=== PATIENT | female | born 1955 | race Caucasian/White ===

== ENCOUNTER 2017-12-10 10:50 | Inpatient (IN) | payer OTHER ==
--- NOTE | 2017-12-10 11:08 | PDOC ---
History of Present Illness - General Chief Complaint: Wound Stated Complaint: RT ANKLE REDNESS/POSSIBLE CELLULITIS Time Seen by Provider: 12/10/17 11:07 History Source: Patient Exam Limitations: No Limitations - History of Present Illness Initial Comments: 12/10/17 12:06 CHIEF COMPLAINT: Ankle pain HISTORY OF PRESENT ILLNESS: This is a 62 year old female with scleroderma, RA ( on hydroxycholorquine), HTN, and right breast ca s/p chemo/RTX/mastectomy who presents with right ankle pain, warmth, redness, and swelling since Thursday. She reports that on Thursday, swelling extended "up to the knee", but has improved with rest. She is no longer able to bear weight on the right foot and arrives here by ambulance. She denies fevers, but has been taking both Percocet and Tylenol [id number] for pain relief. She has multiple lower extremity skin lesions from scleroderma, but notes that this redness and pain are not at all typical for this or for RA flares. She doesn't recall injuring the foot, cutting the skin, etc. V/s on arrival are unremarkable. PCP is Mitra Zimmerman. REVIEW OF SYSTEMS: GENERAL/CONSTITUTIONAL: No fever or chills. No weakness. No weight change. HEAD, EYES, EARS, NOSE AND THROAT: No change in vision. No ear pain or discharge. No sore throat. CARDIOVASCULAR: No chest pain or palpitations. RESPIRATORY: No cough, wheezing, or shortness of breath. GASTROINTESTINAL: No nausea, vomiting, diarrhea or constipation. GENITOURINARY: No dysuria, frequency, or change in urination. MUSCULOSKELETAL: See HPI. SKIN: Chronic lesions secondary to scleroderma. NEUROLOGIC: No headache, vertigo, loss of consciousness, or loss of sensation. PSYCHIATRIC: No depression or anxiety. ENDOCRINE: No increased thirst. No abnormal weight change. HEMATOLOGIC/LYMPHATIC: No anemia, easy bleeding, or history of blood clots. ALLERGIC/IMMUNOLOGIC: No hives or skin allergy. No latex allergy. PHYSICAL EXAM: GENERAL: The patient is awake, alert, and fully oriented, in no acute distress. HEAD: Normal with no signs of trauma. ENT: Pupils equal, round and reactive to light, extraocular movements intact, sclera anicteric, conjunctiva clear. Neck supple. LUNGS: Clear to auscultation bilaterally. Normal excursion. No respiratory distress or use of accessory muscles. CV: RRR, S1/S2, no MRG. Cap refill < 2 sec. ABDOMEN: Soft, non-distended, non-tender. EXTREMITIES: Erythema, warmth, tenderness most notable at right lateral malleolus but extending from midfoot to mid-tibia, circumferential. Unable to bear weight. NEUROLOGICAL: Normal speech. CN II-XII grossly intact. PSYCH: Normal mood, normal affect. SKIN: Warm, dry, normal turgor. Past History - Past Medical History Allergies/Adverse Reactions: Allergies Allergy/AdvReac Type Severity Reaction Status Date / Time No Known Allergies Allergy Verified 12/10/17 10:55 Home Medications: Ambulatory Orders Aspirin [ASA -] 325 mg PO DAILY 12/10/17 Calcium Carb, Citrate/Vit D3 [Calcium + D3 ER Tablet] 600 mg PO DAILY 12/10/17 Carisoprodol [Soma] 350 mg PO TID 12/10/17 Diazepam [Valium] 5 mg PO Q8H PRN 12/10/17 Hydroxychloroquine So4 [Plaquenil -] 200 mg PO DAILY 12/10/17 Iron,Carbonyl/Ascorbic Acid [Fe C Tablet] 1 tab PO DAILY 12/10/17 Levothyroxine [Synthroid -] 25 mcg PO DAILY 12/10/17 Metoprolol Succinate 25 mg PO DAILY 12/10/17 Multivitamin [Daily Multiple Vitamin] 1 tab PO DAILY 12/10/17 Oxycodone HCl/Acetaminophen [Percocet 5-325 mg Tablet] 1 - 2 tab PO BID Vitamin B-12 100 mg PO DAILY 12/10/17 Cancer: Yes (RT BREAST, MASCECTOMY) COPD: No HTN: Yes Thyroid Disease: Yes (HYPO) Other medical history: RHEUMATOID ARTHRITIS, SCLERODERMA, - Suicide/Smoking/Psychosocial Hx Smoking History: Former smoker Have you smoked in the past 12 months: No Information on smoking cessation initiated: No *Physical Exam - Vital Signs Last Vital Signs Temp Pulse Resp BP Pulse Ox 98.7 F 87 17 139/88 97 12/10/17 10:55 12/10/17 10:55 12/10/17 10:55 12/10/17 10:55 12/10/17 10:55 ED Treatment Course - LABORATORY CBC & Chemistry Diagram: 12/10/17 11:40 12/10/17 11:40 Medical Decision Making - Medical Decision Making 12/10/17 12:15 A/P: 62 year old female with non-traumatic RLE erythema, warmth, and tenderness suspicious for cellulitis. 1. Labs including CBC, CMP, PT/INR, blood cultures 2. Ankle/foot xray 3. U/s RLE to r/o DVT 4. Oxycodone 10mg po for pain 5. Ancef 1g IVPB WBC 12.3 U/s: No DVT Xray read pending Will admit for IV abx due to immunosuppresion and inability to ambulate Discussed with ZAINA Arteaga *DC/Admit/Observation/Transfer Diagnosis at time of Disposition: Cellulitis of right anterior lower leg - Discharge Dispostion Condition at time of disposition: Guarded Admit: Yes - Referrals Referrals: Mitra Zimmerman [Primary Care Provider] - - Patient Instructions - Post Discharge Activity
[2017-12-10] MEDS ORDERED: oxyCODONE HCL 5 MG TABLET PO ONE (11:36)
[2017-12-10] MEDS ORDERED: oxyCODONE HCL 5 MG TABLET ONE (11:49)
[2017-12-10 11:51] LABS: BASO % 0.5 % (0-2.0); EOS % 0.7 % (0-4.5); HEMATOCRIT 35.8 % (32.4-45.2); HEMOGLOBIN 12.2 GM/dL (10.7-15.3); LYMPH % 6.7 % (8-40); MCH 32.6 pg (25.7-33.7); MCHC 34.1 g/dl (32.0-36.0); MEAN CELL VOLUME 95.4 fl (80-96); MEAN PLT VOLUME 7.3 fl (7.5-11.1); MONO % 6.1 % (3.8-10.2); PLATELET COUNT 300 K/MM3 (134-434); RBC 3.76 M/mm3 (3.60-5.2); RDW 13.3 % (11.6-15.6); WHITE BLOOD COUNT 12.3 K/mm3 (4.0-10.0)
[2017-12-10 12:07] LABS: INR 1.17 (0.82-1.09); PROTHROMBIN TIME (PATIENT) 13.2 SEC (9.98-11.88)
[2017-12-10] MEDS ORDERED: CEFAZOLIN 1 GM in DEXTROSE 5%-WATER - 50 ML IVPB ONE (12:16)
[2017-12-10 12:17] LABS: ALBUMIN 3.8 g/dl (3.4-5.0); ALK PHOS 88 U/L (45-117); ANION GAP 12 (8-16); BILIRUBIN,TOTAL 0.3 mg/dL (0.2-1.0); BLOOD UREA NITROGEN 11 mg/dL (7-18); CALCIUM 9.1 mg/dL (8.5-10.1); CHLORIDE 93 mmol/L (98-107); CO2 26 mmol/L (21-32); CREATININE 0.7 mg/dL (0.55-1.02); GLUCOSE,RANDOM 99 mg/dL (74-106); SGPT/ALT 19 U/L (12-78); SODIUM 131 mmol/L (136-145); TOT PROT 7.9 g/dl (6.4-8.2)
[2017-12-10 12:18] LABS: POTASSIUM 4.4 mmol/L (3.5-5.1); SGOT/AST 16 U/L (15-37)
[2017-12-10] MEDS ORDERED: CEFAZOLIN 1 GM/D5W 1 GM/50 ML BAG ONE (12:21)
[2017-12-10] MEDS ORDERED: diazePAM 5 MG TABLET PO ONE (13:01)
[2017-12-10] MEDS ORDERED: KETOROLAC TROMETHAMINE 30 MG/1 ML VIAL IVPUSH ONE (13:02)
[2017-12-10] MEDS ORDERED: diazePAM 5 MG TABLET ONE (13:11)
[2017-12-10] MEDS ORDERED: KETOROLAC TROMETHAMINE 30 MG/1 ML VIAL ONE (13:11)
[2017-12-10] MEDS ORDERED: ONDANSETRON 4 MG/2 ML VIAL IVPUSH ONE (14:07)
[2017-12-10] MEDS ORDERED: ONDANSETRON 4 MG/2 ML VIAL ONE (14:20)
--- NOTE | 2017-12-10 14:27 | EKG ---
Test Reason : Blood Pressure : / mmHG Vent. Rate : 075 BPM Atrial Rate : 075 BPM P-R Int : 154 ms QRS Dur : 080 ms QT Int : 416 ms P-R-T Axes : 068 -14 053 degrees QTc Int : 464 ms NORMAL SINUS RHYTHM POSSIBLE LEFT ATRIAL ENLARGEMENT LOW VOLTAGE QRS CANNOT RULE OUT INFERIOR INFARCT , AGE UNDETERMINED CANNOT RULE OUT ANTERIOR INFARCT , AGE UNDETERMINED ABNORMAL ECG NO PREVIOUS ECGS AVAILABLE Confirmed by LAY JUSTIN, MG ([id number]) on 12/10/2017 2:27:17 PM Referred By: Confirmed By:MG CHUN MD
--- NOTE | 2017-12-10 16:49 | HP ---
CHIEF COMPLAINT: PCP: Dr. Mitra Zimmerman HISTORY OF PRESENT ILLNESS: This is a 62 year old female with HTN, scleroderma, rheumatoid arthritis, and right breast ca s/p chemo/RTX/mastectomy who presents with right ankle pain, warmth, redness x 1 week. At the onset, the swelling extended up to the knee but improved with rest. She is no longer able to bear weight on the right foot. She denies fevers, but has been taking both Percocet and Tylenol around-the- clock for pain relief. She has multiple lower extremity skin lesions from scleroderma, but notes that this redness and pain are not typical for scleroderma or RA flares. She doesn't recall injuring the foot, cutting the skin , or any type of trauma. ER course was notable for: (1) Afebrile, WBC 12.3 (2) US RLE: negative for DVT (3) Xray: prominent soft tissue overlying lateral malleolus Recent Travel: No PAST MEDICAL HISTORY: Hypertension Scleroderma Rheumatoid arthritis Hypothyroidism Breast cancer s/p chemo/RTX PAST SURGICAL HISTORY: Mastectomy Social History: Smoking: former Alcohol: no Drugs: no Family History: Allergies No Known Allergies Allergy (Verified 12/10/17 10:55) HOME MEDICATIONS: Home Medications Medication Instructions Recorded Aspirin [ASA -] 325 mg PO DAILY 12/10/17 Calcium Carb, Citrate/Vit D3 600 mg PO DAILY 12/10/17 [Calcium + D3 ER Tablet] Carisoprodol [Soma] 350 mg PO TID 12/10/17 Diazepam [Valium] 5 mg PO Q8H PRN 12/10/17 Hydroxychloroquine So4 [Plaquenil 200 mg PO DAILY 12/10/17 -] Iron,Carbonyl/Ascorbic Acid [Fe C 1 tab PO DAILY 12/10/17 Tablet] Levothyroxine [Synthroid -] 25 mcg PO DAILY 12/10/17 Metoprolol Succinate 25 mg PO DAILY 12/10/17 Multivitamin [Daily Multiple 1 tab PO DAILY 12/10/17 Vitamin] Oxycodone HCl/Acetaminophen 1 - 2 tab PO BID 12/10/17 [Percocet 5-325 mg Tablet] Vitamin B-12 100 mg PO DAILY 12/10/17 REVIEW OF SYSTEMS CONSTITUTIONAL: Absent: fever, chills, diaphoresis, generalized weakness, malaise, loss of appetite, weight change HEENT: Absent: rhinorrhea, nasal congestion, throat pain, throat swelling, difficulty swallowing, mouth swelling, ear pain, eye pain, visual changes CARDIOVASCULAR: Absent: chest pain, syncope, palpitations, irregular heart rate, lightheadedness , peripheral edema RESPIRATORY: Absent: cough, shortness of breath, dyspnea with exertion, orthopnea, wheezing, stridor, hemoptysis GASTROINTESTINAL: Absent: abdominal pain, abdominal distension, nausea, vomiting, diarrhea, constipation, melena, hematochezia GENITOURINARY: Absent: dysuria, frequency, urgency, hesitancy, hematuria, flank pain, genital pain MUSCULOSKELETAL: +pain, swelling, erythema, warmth RLE Absent: myalgia, arthralgia, joint swelling, back pain, neck pain SKIN: +chronic lesions secondary to scleroderma Absent: rash, itching, pallor HEMATOLOGIC/IMMUNOLOGIC: Absent: easy bleeding, easy bruising, lymphadenopathy, frequent infections ENDOCRINE: Absent: unexplained weight gain, unexplained weight loss, heat intolerance, cold intolerance NEUROLOGIC: Absent: headache, focal weakness or paresthesias, dizziness, unsteady gait, seizure, mental status changes, bladder or bowel incontinence PSYCHIATRIC: Absent: anxiety, depression, suicidal or homicidal ideation, hallucinations. PHYSICAL EXAMINATION Vital Signs - 24 hr 12/10/17 12/10/17 10:55 16:00 Temperature 98.7 F 98.5 F Pulse Rate 87 Pulse Rate [ 74 Apical] Respiratory 17 18 Rate Blood Pressure 139/88 Blood Pressure 134/78 [Left Arm] O2 Sat by Pulse 97 99 Oximetry (%) GENERAL: Awake, alert, and fully oriented, in no acute distress. HEAD: Normal with no signs of trauma. EYES: Pupils equal, round and reactive to light, extraocular movements intact, sclera anicteric, conjunctiva clear. No lid lag. EARS, NOSE, THROAT: Ears normal, nares patent, oropharynx clear without exudates. Moist mucous membranes. NECK: Normal range of motion, supple without lymphadenopathy, JVD, or masses. LUNGS: Breath sounds equal, clear to auscultation bilaterally. No wheezes, and no crackles. No accessory muscle use. HEART: Regular rate and rhythm, normal S1 and S2 without murmur, rub or gallop. ABDOMEN: Soft, nontender, not distended, normoactive bowel sounds, no guarding, no rebound, no masses. No hepatomegaly or splenomegaly. MUSCULOSKELETAL: Normal range of motion at all joints. No bony deformities or tenderness. No CVA tenderness. UPPER EXTREMITIES: 2+ pulses, warm, well-perfused. No cyanosis. No clubbing. No peripheral edema. LOWER EXTREMITIES: Erythema, warmth, tenderness most notable at right lateral malleolus but extending from midfoot to mid-tibia, circumferential. No fluctuance. NEUROLOGICAL: Cranial nerves II-XII intact. Normal speech. Normal gait. PSYCHIATRIC: Cooperative. Good eye contact. Appropriate mood and affect. SKIN: Warm, dry, normal turgor, no rashes or lesions noted, normal capillary refill. Laboratory Results - last 24 hr 12/10/17 12/10/17 12/10/17 11:40 11:40 11:40 WBC 12.3 H RBC 3.76 Hgb 12.2 Hct 35.8 MCV 95.4 MCH 32.6 MCHC 34.1 RDW 13.3 Plt Count 300 MPV 7.3 L Neutrophils % 86.0 H Lymphocytes % 6.7 L Monocytes % 6.1 Eosinophils % 0.7 Basophils % 0.5 PT with INR 13.20 H INR 1.17 H Sodium 131 L Potassium 4.4 Chloride 93 L Carbon Dioxide 26 Anion Gap 12 BUN 11 Creatinine 0.7 Creat Clearance w eGFR > 60 Random Glucose 99 Calcium 9.1 Total Bilirubin 0.3 AST 16 ALT 19 Alkaline Phosphatase 88 Total Protein 7.9 Albumin 3.8 ASSESSMENT/PLAN 62 year-old female with a PMH significant for HTN, scleroderma, rheumatoid arthritis, and right breast ca s/p chemo/RTX/mastectomy. Admitted for right ankle cellulitis. Cellulitis right lateral mallelous --afebrile, mild leukocytosis --start unasyn and clindamycin --CT pending to r/o collection/abscess --blood cultures collected and sent Hypertension --continue metoprolol Scleroderma --stable Rheumatoid arthritis --continue Plaquenil --home pain management regimen: oxycodone, Robaxin (pharmacy substitute for Soma), valium Breast cancer --stable FEN Fluids: PO intake adequate Electrolytes: replete as indicated Nutrition: sodium controlled DVT prophylaxis: enoxaparin Physical therapy Dispo: continues to require inpatient care. Full code. Visit type - Emergency Visit Emergency Visit: Yes ED Registration Date: 12/10/17 Care time: The patient presented to the Emergency Department on the above date and was hospitalized for further evaluation of their emergent condition. - New Patient This patient is new to me today: Yes Date on this admission: 12/14/17 - Critical Care Critical Care patient: No Hospitalist Screening - Colonoscopy Questionnaire Colonoscopy Questionnaire: Colonoscopy Questionnaire - Patient: 50 - 75 years old and never had a screening colonoscopy: Unknown History of colon or rectal polyps, or CA: Unknown History of IBD, Crohn's disease or UC: Unknown History of abdominal radiation therapy as a child: Unknown - Relative: 1 with colon or rectal CA, or polyps at age 60 or younger: Unknown Colon or rectal CA diagnosed at age 45 or younger: Unknown Multiple relatives with colon or rectal CA: Unknown - Outcome: Screening Result: Negative Screen
[2017-12-10] MEDS: diazePAM 5 MG TABLET PO PRN (17:49)
[2017-12-10 18:09] VITALS: BMI 20.8
[2017-12-10] MEDS ORDERED: BUDESONIDE/FORMETEROL FUMARATE 80/4.5 mcg INHALER IH SCH (20:00)
[2017-12-10] MEDS ORDERED: PATIENT'S OWN MEDICATION (NON-FORMULARY) (Tiotropium Bromide [Spiriva Respimat] 4 GM) IH SCH (20:00)
[2017-12-10] MEDS: AMPICILLIN NA/SULBACTAM NA 3 GM in SODIUM CHLORIDE 100 ML IVPB SCH ×2 (20:14→21:48)
[2017-12-10] MEDS: KETOROLAC TROMETHAMINE 30 MG/1 ML VIAL IVPUSH PRN (20:14)
[2017-12-10] MEDS: CLINDAMYCIN IVPB 300 MG in DEXTROSE 5%-WATER - 48 ML IVPB SCH (20:57)
[2017-12-10] MEDS: SYMBICORT IH SCH (21:47)
[2017-12-10] MEDS ORDERED: ACETAMINOPHEN 325 MG TABLET (FP) PO SCH (22:00)
[2017-12-10] MEDS: ACETAMINOPHEN 500 MG TABLET (FP) PO PRN (22:58)
[2017-12-10] MEDS: oxyCODONE HCL 5 MG TABLET PO SCH (22:58)
[2017-12-10] MEDS ORDERED: PT OWN MED DRAWER 7, Y5N ONE (23:08)
[2017-12-11] MEDS ORDERED: PT OWN MED DRAWER 7, Y5N ONE ×5 (02:35→20:43)
[2017-12-11] MEDS: AMPICILLIN NA/SULBACTAM NA 3 GM in SODIUM CHLORIDE 100 ML IVPB SCH ×4 (02:38→21:42)
[2017-12-11] MEDS: CLINDAMYCIN IVPB 300 MG in DEXTROSE 5%-WATER - 48 ML IVPB SCH ×3 (03:21→20:16)
[2017-12-11] MEDS: KETOROLAC TROMETHAMINE 30 MG/1 ML VIAL IVPUSH PRN ×3 (04:06→19:02)
[2017-12-11] MEDS: diazePAM 5 MG TABLET PO PRN ×2 (05:17→17:40)
[2017-12-11] MEDS: LEVOTHYROXINE NA 25 MCG TABLET (FP) PO SCH ×2 (06:53→09:33)
[2017-12-11 07:58] LABS: BASO % 0.3 % (0-2.0); EOS % 1.9 % (0-4.5); HEMATOCRIT 32.6 % (32.4-45.2); HEMOGLOBIN 11.3 GM/dL (10.7-15.3); LYMPH % 10.6 % (8-40); MCH 32.7 pg (25.7-33.7); MCHC 34.6 g/dl (32.0-36.0); MEAN CELL VOLUME 94.5 fl (80-96); MEAN PLT VOLUME 7.3 fl (7.5-11.1); MONO % 7.5 % (3.8-10.2); NEUT % 79.7 % (42.8-82.8); PLATELET COUNT 278 K/MM3 (134-434); RBC 3.45 M/mm3 (3.60-5.2); WHITE BLOOD COUNT 8.2 K/mm3 (4.0-10.0)
--- NOTE | 2017-12-11 08:33 | PN ---
Physical Exam: SUBJECTIVE: Patient seen and examined at bedside. Pain is well-managed on current regimen. OBJECTIVE: Vital Signs Period Temp Pulse Resp BP Sys/Gallegos Pulse Ox Last 24 Hr 98.1 F-98.7 F 65-87 17-20 125-139/67-88 96-100 GENERAL: Awake, alert, and fully oriented, in no acute distress. LUNGS: Breath sounds equal, clear to auscultation bilaterally. No wheezes, and no crackles. No accessory muscle use. HEART: Regular rate and rhythm, normal S1 and S2 without murmur, rub or gallop. ABDOMEN: Soft, nontender, not distended, normoactive bowel sounds, no guarding, no rebound, no masses. UPPER EXTREMITIES: 2+ pulses, warm, well-perfused. No cyanosis. No clubbing. No peripheral edema. LOWER EXTREMITIES: Erythema, warmth, tenderness most notable at right lateral malleolus NEUROLOGICAL: Cranial nerves II-XII intact. Normal speech. Laboratory Results - last 24 hr 12/10/17 12/10/17 12/10/17 11:40 11:40 11:40 WBC 12.3 H RBC 3.76 Hgb 12.2 Hct 35.8 MCV 95.4 MCH 32.6 MCHC 34.1 RDW 13.3 Plt Count 300 MPV 7.3 L Neutrophils % 86.0 H Lymphocytes % 6.7 L Monocytes % 6.1 Eosinophils % 0.7 Basophils % 0.5 PT with INR 13.20 H INR 1.17 H Sodium 131 L Potassium 4.4 Chloride 93 L Carbon Dioxide 26 Anion Gap 12 BUN 11 Creatinine 0.7 Creat Clearance w eGFR > 60 Random Glucose 99 Calcium 9.1 Total Bilirubin 0.3 AST 16 ALT 19 Alkaline Phosphatase 88 Total Protein 7.9 Albumin 3.8 12/11/17 06:30 WBC 8.2 D RBC 3.45 L Hgb 11.3 Hct 32.6 MCV 94.5 MCH 32.7 MCHC 34.6 RDW 13.0 Plt Count 278 MPV 7.3 L Neutrophils % 79.7 Lymphocytes % 10.6 D Monocytes % 7.5 Eosinophils % 1.9 D Basophils % 0.3 PT with INR INR Sodium Potassium Chloride Carbon Dioxide Anion Gap BUN Creatinine Creat Clearance w eGFR Random Glucose Calcium Total Bilirubin AST ALT Alkaline Phosphatase Total Protein Albumin Active Medications Generic Name Dose Route Start Last Admin Trade Name Freq PRN Reason Stop Dose Admin Acetaminophen 500 mg 12/10/17 19:56 12/10/17 22:58 Tylenol - PO 500 mg Q6H PRN Administration FEVER Aspirin 325 mg 12/11/17 10:00 Asa - PO DAILY [facility] Diazepam 5 mg 12/10/17 16:49 12/11/17 05:17 Valium - PO 5 mg Q8H PRN Administration ANXIETY Enoxaparin Sodium 40 mg 12/11/17 10:00 Lovenox - SQ DAILY [facility] Hydroxychloroquine Sulfate 200 mg 12/11/17 10:00 Plaquenil - PO DAILY [facility] Ampicillin Sodium/Sulbactam 100 mls @ 200 mls/hr 12/10/17 17:00 12/11/17 02: 38 Sodium 3 gm/ Sodium Chloride IVPB 200 mls/hr Q6H-IV JAYA Administration Clindamycin Phosphate 300 mg/ 50 mls @ 104 mls/hr 12/10/17 18:00 12/11/17 03: 21 Dextrose IVPB 104 mls/hr Q8H-IV JAYA Administration Ketorolac Tromethamine 30 mg 12/10/17 19:56 12/11/17 04:06 Toradol Injection - IVPUSH 12/15/17 19:55 30 mg Q6H PRN Administration PAIN LEVEL 4 - 6 Levothyroxine Sodium 25 mcg 12/11/17 06:00 12/11/17 06:53 Synthroid - PO 25 mcg DAILY [facility] Administration Metoprolol Succinate 25 mg 12/11/17 10:00 Toprol Xl - PO DAILY [facility] Symbicort 80/4.5 1 each 12/10/17 20:15 12/10/17 21:47 Patient's Own IH Not Given Medication (Non- DAILY [facility] Formulary) Non-Formulary Medication 4 gm 12/11/17 10:00 Tiotropium [place] [Spiriva Respimat] IH DAILY [facility] Oxycodone HCl 5 mg 12/10/17 22:00 12/10/17 22:58 Roxicodone - PO 5 mg BID JAYA Administration ASSESSMENT/PLAN: 62 year-old female with a PMH significant for HTN, scleroderma, rheumatoid arthritis, and right breast ca s/p chemo/RTX/mastectomy. Admitted for right ankle cellulitis. Cellulitis right lateral mallelous --afebrile, no leukocytosis --continue unasyn and clindamycin --CT pending to r/o collection/abscess --blood cultures collected and sent Hypertension --continue metoprolol Scleroderma --stable Rheumatoid arthritis --continue Plaquenil --home pain management regimen: oxycodone, Robaxin (pharmacy substitute for Soma), valium Breast cancer --stable FEN Fluids: PO intake adequate Electrolytes: replete as indicated Nutrition: sodium controlled DVT prophylaxis: enoxaparin Physical therapy Dispo: continues to require inpatient care. Full code. Visit type - Emergency Visit Emergency Visit: Yes ED Registration Date: 12/10/17 Care time: The patient presented to the Emergency Department on the above date and was hospitalized for further evaluation of their emergent condition. - New Patient This patient is new to me today: No - Critical Care Critical Care patient: No
[2017-12-11 08:55] LABS: CHLORIDE 96 mmol/L (98-107); POTASSIUM 4.5 mmol/L (3.5-5.1); SODIUM 132 mmol/L (136-145)
[2017-12-11 09:11] LABS: ALBUMIN 3.1 g/dl (3.4-5.0); ALK PHOS 78 U/L (45-117); ANION GAP 12 (8-16); BILIRUBIN,TOTAL 0.5 mg/dL (0.2-1.0); BLOOD UREA NITROGEN 20 mg/dL (7-18); CALCIUM 8.2 mg/dL (8.5-10.1); CO2 24 mmol/L (21-32); CREATININE 0.7 mg/dL (0.55-1.02); GLUCOSE,RANDOM 71 mg/dL (74-106); MAGNESIUM 2.5 mg/dL (1.8-2.4); SGOT/AST 11 U/L (15-37); SGPT/ALT 14 U/L (12-78); TOT PROT 6.7 g/dl (6.4-8.2)
[2017-12-11] MEDS: oxyCODONE HCL 5 MG TABLET PO SCH ×2 (09:30→21:42)
[2017-12-11] MEDS: metoPROLOL SUCCINATE 25 MG TAB.SR.24H (FP) PO SCH (09:31)
[2017-12-11] MEDS: ACETAMINOPHEN 500 MG TABLET (FP) PO PRN ×3 (09:31→23:22)
[2017-12-11] MEDS: ASPIRIN 325 MG TABLET PO SCH (09:31)
[2017-12-11] MEDS: ENOXAPARIN NA (PORCINE) 40 MG/0.4 ML DISP.SYRIN SQ SCH (09:32)
[2017-12-11] MEDS: PATIENT'S OWN MEDICATION (NON-FORMULARY) (Tiotropium Bromide [Spiriva Respimat] 4 GM) IH SCH (09:44)
[2017-12-11] MEDS: SYMBICORT IH SCH (09:45)
[2017-12-11] MEDS: HYDROXYCHLOROQUINE SO4 200 MG TABLET (FP) PO SCH (11:41)
[2017-12-12] MEDS: KETOROLAC TROMETHAMINE 30 MG/1 ML VIAL IVPUSH PRN (00:47)
[2017-12-12] MEDS ORDERED: PT OWN MED DRAWER 7, Y5N ONE ×3 (01:09→21:36)
[2017-12-12] MEDS: CLINDAMYCIN IVPB 300 MG in DEXTROSE 5%-WATER - 48 ML IVPB SCH ×3 (01:16→18:24)
[2017-12-12] MEDS: AMPICILLIN NA/SULBACTAM NA 3 GM in SODIUM CHLORIDE 100 ML IVPB SCH ×4 (02:20→21:33)
[2017-12-12] MEDS: diazePAM 5 MG TABLET PO PRN ×2 (02:23→20:18)
[2017-12-12] MEDS: ACETAMINOPHEN 500 MG TABLET (FP) PO PRN ×3 (05:50→21:33)
[2017-12-12] MEDS: ASPIRIN 325 MG TABLET PO SCH (09:24)
[2017-12-12] MEDS: oxyCODONE HCL 5 MG TABLET PO SCH ×5 (09:24→21:33)
[2017-12-12] MEDS: metoPROLOL SUCCINATE 25 MG TAB.SR.24H (FP) PO SCH (09:24)
[2017-12-12] MEDS: ENOXAPARIN NA (PORCINE) 40 MG/0.4 ML DISP.SYRIN SQ SCH (09:24)
[2017-12-12] MEDS: LEVOTHYROXINE NA 25 MCG TABLET (FP) PO SCH (09:26)
[2017-12-12] MEDS: HYDROXYCHLOROQUINE SO4 200 MG TABLET (FP) PO SCH (09:26)
[2017-12-12] MEDS: SYMBICORT IH SCH (09:43)
[2017-12-12] MEDS: PATIENT'S OWN MEDICATION (NON-FORMULARY) (Tiotropium Bromide [Spiriva Respimat] 4 GM) IH SCH (09:43)
--- NOTE | 2017-12-12 12:14 | PN ---
Physical Exam: SUBJECTIVE: Patient seen and examined. Complaining of headache, thinks the Toradol given caused the headache. OBJECTIVE: Vital Signs Period Temp Pulse Resp BP Sys/Gallegos Pulse Ox Last 24 Hr 97.9 F-99.0 F 64-80 18-18 122-157/64-76 96 GENERAL: Awake, alert, and fully oriented, in no acute distress. LUNGS: Breath sounds equal, clear to auscultation bilaterally. No wheezes, and no crackles. No accessory muscle use. HEART: Regular rate and rhythm, normal S1 and S2 without murmur, rub or gallop. ABDOMEN: Soft, nontender, not distended, normoactive bowel sounds, no guarding, no rebound, no masses. UPPER EXTREMITIES: 2+ pulses, warm, well-perfused. No cyanosis. No clubbing. No peripheral edema. LOWER EXTREMITIES: Right ankle erythema resolving, edema resolving NEUROLOGICAL: Cranial nerves II-XII intact. Normal speech. Active Medications Generic Name Dose Route Start Last Admin Trade Name Freq PRN Reason Stop Dose Admin Acetaminophen 500 mg 12/10/17 19:56 12/12/17 05:50 Tylenol - PO 500 mg Q6H PRN Administration FEVER Aspirin 325 mg 12/11/17 10:00 12/12/17 09:24 Asa - PO 325 mg DAILY JAYA Administration Diazepam 5 mg 12/10/17 16:49 12/12/17 02:23 Valium - PO 5 mg Q8H PRN Administration ANXIETY Enoxaparin Sodium 40 mg 12/11/17 10:00 12/12/17 09:24 Lovenox - SQ 40 mg DAILY JAYA Administration Hydroxychloroquine Sulfate 200 mg 12/11/17 10:00 12/12/17 09:26 Plaquenil - PO 200 mg DAILY JAYA Administration Ampicillin Sodium/Sulbactam 100 mls @ 200 mls/hr 12/10/17 17:00 12/12/17 09: 24 Sodium 3 gm/ Sodium Chloride IVPB 200 mls/hr Q6H-IV JAYA Administration Clindamycin Phosphate 300 mg/ 50 mls @ 104 mls/hr 12/10/17 18:00 12/12/17 09: 45 Dextrose IVPB 104 mls/hr Q8H-IV JAYA Administration Ketorolac Tromethamine 30 mg 12/10/17 19:56 12/12/17 00:47 Toradol Injection - IVPUSH 12/15/17 19:55 30 mg Q6H PRN Administration PAIN LEVEL 4 - 6 Levothyroxine Sodium 25 mcg 12/11/17 06:00 12/12/17 09:26 Synthroid - PO 25 mcg DAILY JAYA Administration Metoprolol Succinate 25 mg 12/11/17 10:00 12/12/17 09:24 Toprol Xl - PO 25 mg DAILY JAYA Administration Symbicort 80/4.5 1 each 12/10/17 20:15 12/12/17 09:43 Patient's Own IH 1 each Medication (Non- DAILY JAYA Administration Formulary) Non-Formulary Medication 4 gm 12/11/17 10:00 12/12/17 09:43 Tiotropium [place] [Spiriva Respimat] IH 4 gm DAILY JAYA Administration Oxycodone HCl 5 mg 12/10/17 22:00 12/12/17 09:24 Roxicodone - PO 5 mg BID JAYA Administration ASSESSMENT/PLAN 62 year-old female with a PMH significant for HTN, scleroderma, rheumatoid arthritis, and right breast ca s/p chemo/RTX/mastectomy. Admitted for right ankle cellulitis. Cellulitis right lateral mallelous --afebrile, no leukocytosis, less erythema, less edema --xray: no sign of osteo --CT: no evidence of osteo: subd edema most marked about the ankle and foot supporting the clinical history of cellulitis --blood cultures NGTD --continue unasyn and clindamycin Hypertension --continue metoprolol Scleroderma --stable Rheumatoid arthritis --continue Plaquenil --home pain management regimen: oxycodone, Robaxin (pharmacy substitute for Soma), valium Headache --stop Toradol as possible provoking factor --fioricet Breast cancer --stable FEN Fluids: PO intake adequate Electrolytes: replete as indicated Nutrition: sodium controlled DVT prophylaxis: enoxaparin Physical therapy Dispo: continues to require inpatient care. Full code. Visit type - Emergency Visit Emergency Visit: Yes ED Registration Date: 12/10/17 Care time: The patient presented to the Emergency Department on the above date and was hospitalized for further evaluation of their emergent condition. - New Patient This patient is new to me today: No - Critical Care Critical Care patient: No
[2017-12-12 12:20] LABS: BASO % 0.4 % (0-2.0); EOS % 2.7 % (0-4.5); HEMATOCRIT 31.5 % (32.4-45.2); HEMOGLOBIN 10.9 GM/dL (10.7-15.3); LYMPH % 13.8 % (8-40); MCH 32.7 pg (25.7-33.7); MCHC 34.5 g/dl (32.0-36.0); MEAN CELL VOLUME 94.7 fl (80-96); MEAN PLT VOLUME 6.8 fl (7.5-11.1); NEUT % 76.1 % (42.8-82.8); PLATELET COUNT 273 K/MM3 (134-434); RBC 3.32 M/mm3 (3.60-5.2); RDW 13.1 % (11.6-15.6); WHITE BLOOD COUNT 6.7 K/mm3 (4.0-10.0)
[2017-12-12 12:52] LABS: ALBUMIN 3.1 g/dl (3.4-5.0); ANION GAP 13 (8-16); BILIRUBIN,TOTAL 0.4 mg/dL (0.2-1.0); BLOOD UREA NITROGEN 11 mg/dL (7-18); CALCIUM 8.2 mg/dL (8.5-10.1); CHLORIDE 91 mmol/L (98-107); CO2 26 mmol/L (21-32); CREATININE 0.6 mg/dL (0.55-1.02); GLUCOSE,RANDOM 82 mg/dL (74-106); MAGNESIUM 2.3 mg/dL (1.8-2.4); SGOT/AST 16 U/L (15-37); SGPT/ALT 16 U/L (12-78); SODIUM 130 mmol/L (136-145); TOT PROT 7.1 g/dl (6.4-8.2)
[2017-12-12 12:53] LABS: ALK PHOS 83 U/L (45-117)
[2017-12-12] MEDS: ACETAMINOPHEN/CAFFEINE/BUTALBITAL 1 TAB PO PRN ×2 (12:56→22:21)
[2017-12-12] MEDS: METHOCARBAMOL 500 MG TABLET PO SCH ×2 (14:38→22:14)
[2017-12-13] MEDS ORDERED: oxyCODONE HCL 5 MG TABLET PO PRN (01:33)
[2017-12-13] MEDS ORDERED: ACETAMINOPHEN 325 MG TABLET (FP) PO PRN (01:34)
[2017-12-13] MEDS ORDERED: PT OWN MED DRAWER 7, Y5N ONE ×4 (01:53→20:05)
[2017-12-13] MEDS: CLINDAMYCIN IVPB 300 MG in DEXTROSE 5%-WATER - 48 ML IVPB SCH ×3 (02:14→17:38)
[2017-12-13] MEDS: AMPICILLIN NA/SULBACTAM NA 3 GM in SODIUM CHLORIDE 100 ML IVPB SCH ×4 (02:46→20:23)
[2017-12-13] MEDS: ACETAMINOPHEN 500 MG TABLET (FP) PO PRN ×4 (02:47→20:22)
[2017-12-13] MEDS: oxyCODONE HCL 5 MG TABLET PO SCH ×4 (02:47→20:22)
[2017-12-13] MEDS: diazePAM 5 MG TABLET PO PRN ×3 (06:12→23:23)
[2017-12-13] MEDS: METHOCARBAMOL 500 MG TABLET PO SCH ×3 (06:12→21:24)
[2017-12-13] MEDS: ACETAMINOPHEN/CAFFEINE/BUTALBITAL 1 TAB PO PRN ×3 (06:16→19:09)
[2017-12-13] MEDS: ENOXAPARIN NA (PORCINE) 40 MG/0.4 ML DISP.SYRIN SQ SCH (09:19)
[2017-12-13] MEDS: ASPIRIN 325 MG TABLET PO SCH (09:19)
[2017-12-13] MEDS: metoPROLOL SUCCINATE 25 MG TAB.SR.24H (FP) PO SCH (09:19)
[2017-12-13] MEDS: HYDROXYCHLOROQUINE SO4 200 MG TABLET (FP) PO SCH (09:20)
[2017-12-13] MEDS: LEVOTHYROXINE NA 25 MCG TABLET (FP) PO SCH (09:20)
[2017-12-13] MEDS: SYMBICORT IH SCH (09:29)
[2017-12-13] MEDS: PATIENT'S OWN MEDICATION (NON-FORMULARY) (Tiotropium Bromide [Spiriva Respimat] 4 GM) IH SCH (09:30)
--- NOTE | 2017-12-13 09:47 | PN ---
Physical Exam: SUBJECTIVE: Patient seen and examined. Last night when walking to the bathroom the skin overlying the lateral malleolus broke and there was minor bleeding. Wound was wrapped by nurse. Patient could not recall hitting her ankle against anything. OBJECTIVE: Vital Signs Period Temp Pulse Resp BP Sys/Gallegos Pulse Ox Last 24 Hr 98 F-98.9 F 61-80 18-20 117-142/66-92 GENERAL: Awake, alert, and fully oriented, in no acute distress. LUNGS: Breath sounds equal, clear to auscultation bilaterally. No wheezes, and no crackles. No accessory muscle use. HEART: Regular rate and rhythm, normal S1 and S2 without murmur, rub or gallop. ABDOMEN: Soft, nontender, not distended, normoactive bowel sounds, no guarding, no rebound, no masses. UPPER EXTREMITIES: 2+ pulses, warm, well-perfused. No cyanosis. No clubbing. No peripheral edema. LOWER EXTREMITIES: Brown pus on gauze pad; avulsed skin over the lateral malleolus, draining clear fluid; irrigated with NS, redressed NEUROLOGICAL: Cranial nerves II-XII intact. Normal speech. Laboratory Results - last 24 hr 12/12/17 12/12/17 12:00 12:00 WBC 6.7 RBC 3.32 L Hgb 10.9 Hct 31.5 L MCV 94.7 MCH 32.7 MCHC 34.5 RDW 13.1 Plt Count 273 MPV 6.8 L Neutrophils % 76.1 Lymphocytes % 13.8 D Monocytes % 7.0 Eosinophils % 2.7 Basophils % 0.4 Sodium 130 L Potassium 4.0 Chloride 91 L Carbon Dioxide 26 Anion Gap 13 BUN 11 Creatinine 0.6 Creat Clearance w eGFR > 60 Random Glucose 82 Calcium 8.2 L Magnesium 2.3 Total Bilirubin 0.4 AST 16 ALT 16 Alkaline Phosphatase 83 Total Protein 7.1 Albumin 3.1 L Active Medications Generic Name Dose Route Start Last Admin Trade Name Freq PRN Reason Stop Dose Admin Acetaminophen 500 mg 12/10/17 19:56 12/13/17 09:27 Tylenol - PO 500 mg Q6H PRN Administration FEVER Acetaminophen/Butalbital/Caffeine 1 tablet 12/12/17 12:29 12/13/17 06:16 Fioricet - PO 1 tablet Q6H PRN Administration HEADACHE Aspirin 325 mg 12/11/17 10:00 12/13/17 09:19 Asa - PO 325 mg DAILY JAYA Administration Diazepam 5 mg 12/10/17 16:49 12/13/17 06:12 Valium - PO 5 mg Q8H PRN Administration ANXIETY Enoxaparin Sodium 40 mg 12/11/17 10:00 12/13/17 09:19 Lovenox - SQ 40 mg DAILY JAYA Administration Hydroxychloroquine Sulfate 200 mg 12/11/17 10:00 12/13/17 09:20 Plaquenil - PO 200 mg DAILY JAYA Administration Ampicillin Sodium/Sulbactam 100 mls @ 200 mls/hr 12/10/17 17:00 12/13/17 09: 21 Sodium 3 gm/ Sodium Chloride IVPB 200 mls/hr Q6H-IV JAYA Administration Clindamycin Phosphate 300 mg/ 50 mls @ 104 mls/hr 12/10/17 18:00 12/13/17 09: 20 Dextrose IVPB 104 mls/hr Q8H-IV JAYA Administration Levothyroxine Sodium 25 mcg 12/11/17 06:00 12/13/17 09:20 Synthroid - PO 25 mcg DAILY JAYA Administration Methocarbamol 1,500 mg 12/12/17 14:00 12/13/17 06:12 Robaxin - PO 1,500 mg TID JAYA Administration Metoprolol Succinate 25 mg 12/11/17 10:00 12/13/17 09:19 Toprol Xl - PO 25 mg DAILY JAYA Administration Symbicort 80/4.5 1 each 12/10/17 20:15 12/13/17 09:29 Patient's Own IH 1 each Medication (Non- DAILY JAYA Administration Formulary) Non-Formulary Medication 4 gm 12/11/17 10:00 12/13/17 09:30 Tiotropium [place] [Spiriva Respimat] IH 4 gm DAILY JAYA Administration Oxycodone HCl 5 mg 12/12/17 21:00 12/13/17 09:20 Roxicodone - PO 5 mg Q6H JAYA Administration ASSESSMENT/PLAN: 62 year-old female with a PMH significant for HTN, scleroderma, rheumatoid arthritis, and right breast ca s/p chemo/RTX/mastectomy. Admitted for right ankle cellulitis. Cellulitis right lateral mallelous --small pus/fluid collection over lateral aspect; wound culture collected and sent --afebrile, no leukocytosis, ankle much improved --xray: no sign of osteo --CT: no evidence of osteo: subd edema most marked about the ankle and foot supporting the clinical history of cellulitis --blood cultures NGTD --continue unasyn and clindamycin Hypertension --continue metoprolol Scleroderma --stable Rheumatoid arthritis --continue Plaquenil --home pain management regimen: oxycodone, Robaxin (pharmacy substitute for Soma), valium Headache --Fioricet Breast cancer --stable Hyponatremia --appears euvolemic --renal consult FEN Fluids: PO intake adequate Electrolytes: replete as indicated Nutrition: sodium controlled DVT prophylaxis: enoxaparin Physical therapy Dispo: continues to require inpatient care. Full code. Visit type - Emergency Visit Emergency Visit: Yes ED Registration Date: 12/10/17 Care time: The patient presented to the Emergency Department on the above date and was hospitalized for further evaluation of their emergent condition. - New Patient This patient is new to me today: No - Critical Care Critical Care patient: No
[2017-12-13 10:33] LABS: ANION GAP 9 (8-16); BLOOD UREA NITROGEN 7 mg/dL (7-18); CALCIUM 8.1 mg/dL (8.5-10.1); CHLORIDE 95 mmol/L (98-107); CO2 25 mmol/L (21-32); CREATININE 0.6 mg/dL (0.55-1.02); GLUCOSE,RANDOM 92 mg/dL (74-106); MAGNESIUM 2.2 mg/dL (1.8-2.4); SODIUM 129 mmol/L (136-145)
[2017-12-14] MEDS ORDERED: PT OWN MED DRAWER 7, Y5N ONE ×3 (01:46→08:43)
[2017-12-14] MEDS: oxyCODONE HCL 5 MG TABLET PO SCH ×4 (02:28→20:59)
[2017-12-14] MEDS: CLINDAMYCIN IVPB 300 MG in DEXTROSE 5%-WATER - 48 ML IVPB SCH ×2 (02:29→09:37)
[2017-12-14] MEDS: ACETAMINOPHEN 500 MG TABLET (FP) PO PRN ×3 (02:29→16:36)
[2017-12-14] MEDS: AMPICILLIN NA/SULBACTAM NA 3 GM in SODIUM CHLORIDE 100 ML IVPB SCH ×2 (02:58→08:58)
[2017-12-14] MEDS: METHOCARBAMOL 500 MG TABLET PO SCH ×3 (06:48→21:01)
[2017-12-14 09:01] LABS: BASO % 0.6 % (0-2.0); HEMATOCRIT 32.6 % (32.4-45.2); HEMOGLOBIN 11.3 GM/dL (10.7-15.3); LYMPH % 17.9 % (8-40); MCH 32.6 pg (25.7-33.7); MCHC 34.5 g/dl (32.0-36.0); MEAN CELL VOLUME 94.3 fl (80-96); MEAN PLT VOLUME 7.2 fl (7.5-11.1); MONO % 8.7 % (3.8-10.2); NEUT % 68.8 % (42.8-82.8); PLATELET COUNT 311 K/MM3 (134-434); RBC 3.46 M/mm3 (3.60-5.2); WHITE BLOOD COUNT 5.5 K/mm3 (4.0-10.0)
[2017-12-14 09:34] LABS: ALBUMIN 3.2 g/dl (3.4-5.0); ANION GAP 8 (8-16); BILIRUBIN,TOTAL 0.6 mg/dL (0.2-1.0); BLOOD UREA NITROGEN 8 mg/dL (7-18); CALCIUM 8.7 mg/dL (8.5-10.1); CHLORIDE 96 mmol/L (98-107); CO2 28 mmol/L (21-32); CREATININE 0.6 mg/dL (0.55-1.02); GLUCOSE,RANDOM 74 mg/dL (74-106); MAGNESIUM 2.6 mg/dL (1.8-2.4); POTASSIUM 4.7 mmol/L (3.5-5.1); SGOT/AST 14 U/L (15-37); SGPT/ALT 18 U/L (12-78); SODIUM 132 mmol/L (136-145); TOT PROT 7.2 g/dl (6.4-8.2)
[2017-12-14 09:35] LABS: ALK PHOS 81 U/L (45-117)
[2017-12-14] MEDS: ENOXAPARIN NA (PORCINE) 40 MG/0.4 ML DISP.SYRIN SQ SCH (09:53)
[2017-12-14] MEDS: metoPROLOL SUCCINATE 25 MG TAB.SR.24H (FP) PO SCH (09:53)
[2017-12-14] MEDS: LEVOTHYROXINE NA 25 MCG TABLET (FP) PO SCH (09:53)
[2017-12-14] MEDS: ASPIRIN 325 MG TABLET PO SCH (09:53)
[2017-12-14] MEDS: SYMBICORT IH SCH (09:54)
[2017-12-14] MEDS: HYDROXYCHLOROQUINE SO4 200 MG TABLET (FP) PO SCH (09:54)
[2017-12-14] MEDS: PATIENT'S OWN MEDICATION (NON-FORMULARY) (Tiotropium Bromide [Spiriva Respimat] 4 GM) IH SCH (09:55)
--- NOTE | 2017-12-14 11:46 | CONSULT ---
Consult - text type - Consultation Consultation Note: Renal Consult for Hyponatremia This is a 62 year old woman with PMhx of Scleroderma, RA, Hypertension, Hypothyrodism presented with wound on her lower leg and admitted for cellulitis with hyponatremia. Pt denies any history of hyponatremia. NO thiazide use at home or in the hospital. + history of COPD but no lung ca history. Pt is on synthroid. NO SOb, chest pain, abd pain, N/V/D. Tolerating diet. Drinks ~3L of water daily. PMhx: as above Allergies: NKD Family hx: NC Social Hx: + smoker ROS : as per HPI Home Medications Medication Instructions Recorded Aspirin [ASA -] 325 mg PO DAILY 12/10/17 Budesonide/Formeterol Fumarate 2 puff IH DAILY 12/10/17 [SYMBICORT 80/4.5mcg -] Calcium Carb, Citrate/Vit D3 600 mg PO DAILY 12/10/17 [Calcium + D3 ER Tablet] Carisoprodol [Soma] 350 mg PO TID 12/10/17 Diazepam [Valium] 5 mg PO Q8H PRN 12/10/17 Hydroxychloroquine So4 [Plaquenil 200 mg PO DAILY 12/10/17 -] Iron,Carbonyl/Ascorbic Acid [Fe C 1 tab PO DAILY 12/10/17 Tablet] Levothyroxine [Synthroid -] 25 mcg PO DAILY 12/10/17 Metoprolol Succinate 25 mg PO DAILY 12/10/17 Multivitamin [Daily Multiple 1 tab PO DAILY 12/10/17 Vitamin] Oxycodone HCl/Acetaminophen 1 - 2 tab PO BID PRN 12/10/17 [Percocet 5-325 mg Tablet] Tiotropium [place] [Spiriva 4 gm IH DAILY 12/10/17 Respimat] Vitamin B-12 100 mg PO DAILY 12/10/17 Vital Signs Temperature 98.3 F 12/14/17 10:00 Pulse Rate 71 12/14/17 10:00 Respiratory Rate 20 12/14/17 10:00 Blood Pressure 153/77 12/14/17 10:00 O2 Sat by Pulse Oximetry (%) 95 12/14/17 09:00 Intake & Output 12/11/17 12/12/17 12/13/17 12/14/17 23:59 23:59 23:59 23:59 Intake Total 650 1050 1200 100 Balance 650 1050 1200 100 NAD, awake and alert MMM, no JVD, neck supple RRR, no M/R CTA soft NT/ND No LE edema, clubbing or edema no focal neurologic defects CBC, BMP 12/14/17 07:52 12/14/17 07:52 Laboratory Tests 12/14/17 07:52 Calcium 8.7 Magnesium 2.6 H Albumin 3.2 L Current Medications Acetaminophen (Tylenol -) 500 mg PO Q6H PRN PRN Reason: FEVER Last Admin: 12/14/17 09:37 Dose: 500 mg Acetaminophen/Butalbital/Caffeine (Fioricet -) 1 tablet PO Q6H PRN PRN Reason: HEADACHE Last Admin: 12/13/17 19:09 Dose: 1 tablet Aspirin (Asa -) 325 mg PO DAILY [facility] Last Admin: 12/14/17 09:53 Dose: 325 mg Diazepam (Valium -) 5 mg PO Q8H PRN PRN Reason: ANXIETY Last Admin: 12/13/17 23:23 Dose: 5 mg Enoxaparin Sodium (Lovenox -) 40 mg SQ DAILY [facility] Last Admin: 12/14/17 09:53 Dose: 40 mg Hydroxychloroquine Sulfate (Plaquenil -) 200 mg PO DAILY [facility] Last Admin: 12/14/17 09:54 Dose: 200 mg Ampicillin Sodium/Sulbactam (Sodium 3 gm/ Sodium Chloride) 100 mls @ 200 mls/ hr IVPB Q6H-IV JAYA Last Admin: 12/14/17 08:58 Dose: 200 mls/hr Clindamycin Phosphate 300 mg/ (Dextrose) 50 mls @ 104 mls/hr IVPB Q8H-IV [facility] Last Admin: 12/14/17 09:37 Dose: 104 mls/hr Levothyroxine Sodium (Synthroid -) 25 mcg PO DAILY [facility] Last Admin: 12/14/17 09:53 Dose: 25 mcg Methocarbamol (Robaxin -) 1,500 mg PO TID [facility] Last Admin: 12/14/17 06:48 Dose: 1,500 mg Metoprolol Succinate (Toprol Xl -) 25 mg PO DAILY [facility] Last Admin: 12/14/17 09:53 Dose: 25 mg Symbicort 80/4.5 Patient's Own Medication (Non- Formulary) 1 each IH DAILY [facility] Last Admin: 12/14/17 09:54 Dose: 1 each Non-Formulary Medication (Tiotropium [place] [Spiriva Respimat]) 4 gm IH DAILY [facility] Last Admin: 12/14/17 09:55 Dose: 4 gm Oxycodone HCl (Roxicodone -) 5 mg PO Q6H JAYA Last Admin: 12/14/17 09:37 Dose: 5 mg 62 year old woman with PMhx of Scleroderma, RA, Hypertension, Hypothyrodism presented with wound on her lower leg and admitted for cellulitis with hyponatremia. #Evolemic Hyponatremia r/o SIADH #LE cellulitis #Scleroderma #Hx of RA #Hypothyrodism will check Urine OSM, Urien Na, Serum OSM, TSH, AM Cortisol, and CXR pt is asymptomatic at the present time, no need for 3% saline will hold off starting fluid restriction until urine studies are resulted continue synthroid Continue Abx as per Primary Thank you will follow Rosalio Shelley DO
[2017-12-14] MEDS ORDERED: morphine SULFATE 4 MG/ML VIAL IVPB ONE (13:01)
[2017-12-14] MEDS ORDERED: VANCOMYCIN 1 GRAM (PRE-DOCKED) 1,000 MG/250 ML BAG IVPB ONE (13:05)
[2017-12-14] MEDS ORDERED: VANCOMYCIN 1,000 MG in DEXTROSE 5%-WATER - 250 ML IVPB ONE (13:15)
--- NOTE | 2017-12-14 13:54 | CON.ID ---
Consult Consult Specialty:: infectious diseases Reason for Consultation:: infected and abscess of the rt ankle - History of Present Illness Chief Complaint: pain and swelling of the rt ankle History of Present Illness: 62 year old female with HTN, scleroderma, rheumatoid arthritis, and right breast ca s/p chemo/RTX/mastectomy who was admitted with rt ankle pain , warmth , redness x 1 week. according to the notes on admission patients swelling and erythema extended up to the knee and it seems improved with rest. The not further states that the patient was no longer was able to bear weight patient mentions one very interesting fact is that she saw some growth on that side and then she decided to file it off I do not know how she managed that and what instrument she used also of note from the previous hospitalist who was taking care of the patient that her dressing contained pus.seems she was given a combination of unasyn and clinda--which did not help the wound today when the wound was seen by the team she noticed that the patients ankle was painful swollen and there was abscess present and needed further abx and management as probably drainage currently patient does c/o of pain and swelling in the joint also the wound cx send from yesterday is showing mrsa - History Source History Provided By: Patient, Medical Record Limitations to Obtaining History: No Limitations - Past Medical History ...: No - Alcohol/Substance Use Hx Alcohol Use: No - Smoking History Smoking history: Former smoker Have you smoked in the past 12 months: No If you are a former smoker, when did you quit?: n/a Home Medications - Allergies Allergies/Adverse Reactions: Allergies Allergy/AdvReac Type Severity Reaction Status Date / Time No Known Allergies Allergy Verified 12/10/17 10:55 - Home Medications Home Medications: Ambulatory Orders Aspirin [ASA -] 325 mg PO DAILY 12/10/17 Budesonide/Formeterol Fumarate [SYMBICORT 80/4.5mcg -] 2 puff IH DAILY 12/10/17 Calcium Carb, Citrate/Vit D3 [Calcium + D3 ER Tablet] 600 mg PO DAILY 12/10/17 Carisoprodol [Soma] 350 mg PO TID 12/10/17 Diazepam [Valium] 5 mg PO Q8H PRN 12/10/17 Hydroxychloroquine So4 [Plaquenil -] 200 mg PO DAILY 12/10/17 Iron,Carbonyl/Ascorbic Acid [Fe C Tablet] 1 tab PO DAILY 12/10/17 Levothyroxine [Synthroid -] 25 mcg PO DAILY 12/10/17 Metoprolol Succinate 25 mg PO DAILY 12/10/17 Multivitamin [Daily Multiple Vitamin] 1 tab PO DAILY 12/10/17 Oxycodone HCl/Acetaminophen [Percocet 5-325 mg Tablet] 1 - 2 tab PO BID PRN Tiotropium [place] [Spiriva Respimat] 4 gm IH DAILY 12/10/17 Vitamin B-12 100 mg PO DAILY 12/10/17 Review of Systems - Review of Systems Constitutional: reports: No Symptoms Eyes: reports: No Symptoms HENT: reports: No Symptoms Neck: reports: No Symptoms Cardiovascular: reports: No Symptoms Respiratory: reports: No Symptoms Gastrointestinal: reports: No Symptoms Genitourinary: reports: No Symptoms Musculoskeletal: reports: Other Integumentary: reports: Change in Color, Erythema, Wound Neurological: reports: No Symptoms Endocrine: reports: No Symptoms Hematology/Lymphatic: reports: No Symptoms Psychiatric: reports: No Symptoms Physical Exam Vital Signs: Vital Signs Temperature 98.3 F 12/14/17 10:00 Pulse Rate 71 12/14/17 10:00 Respiratory Rate 20 12/14/17 10:00 Blood Pressure 153/77 12/14/17 10:00 O2 Sat by Pulse Oximetry (%) 95 12/14/17 09:00 Constitutional: Yes: Mild Distress, Thin Eyes: Yes: Conjunctiva Clear HENT: Yes: Atraumatic, Normocephalic Neck: Yes: Supple Cardiovascular: Yes: Regular Rate and Rhythm Respiratory: Yes: Regular, CTA Bilaterally Gastrointestinal: Yes: Normal Bowel Sounds, Soft Musculoskeletal: Yes: Other Extremities: Yes: Other Wound/Incision: Yes: Other (rt ankle with purulent draiange,erythema) Neurological: Yes: Alert, Oriented Psychiatric: Yes: Alert, Oriented Labs: CBC, BMP 12/14/17 07:52 12/14/17 07:52 Imaging - Results Chest X-ray: Report Reviewed, Image Reviewed X-ray: Report Reviewed, Image Reviewed Cat Scan: Report Reviewed, Image Reviewed Assessment/Plan hyponatremia le cellulitits abscecc /collection left ankle joint mrsa wound infection scleroderma hypothyrodism patient has already got unasyn and clinda and the patient still is growing mrsa plan agree with starting vanco will add zosyn for now i suggest wound should be drained now await for sensitivities
--- NOTE | 2017-12-14 14:21 | PN ---
"Progress Note (short form) - Note Progress Note: Subjective: The patient was seen and examined at the bedside, she has complaints that her pain is not adequately controlled. The patient reports that at home she takes up to 6g of Acetaminophen daily. Instructed the patient the max daily dose is 4g Current Medications Generic Name Dose Route Start Last Admin Trade Name Freq PRN Reason Stop Dose Admin Acetaminophen 500 mg 12/10/17 19:56 12/14/17 09:37 Tylenol - PO 500 mg Q6H PRN Administration FEVER Acetaminophen/Butalbital/Caffeine 1 tablet 12/12/17 12:29 12/13/17 19:09 Fioricet - PO 1 tablet Q6H PRN Administration HEADACHE Aspirin 325 mg 12/11/17 10:00 12/14/17 09:53 Asa - PO 325 mg DAILY JAYA Administration Diazepam 5 mg 12/14/17 13:06 Valium - PO TID PRN ANXIETY Enoxaparin Sodium 40 mg 12/11/17 10:00 12/14/17 09:53 Lovenox - SQ 40 mg DAILY JAYA Administration Hydroxychloroquine Sulfate 200 mg 12/11/17 10:00 12/14/17 09:54 Plaquenil - PO 200 mg DAILY JAYA Administration Vancomycin HCl 1,000 mg/ 250 mls @ 166.667 mls/hr 12/14/17 13:15 12/14/17 13: 56 Dextrose IVPB 12/14/17 14:44 166.667 mls/hr ONCE ONE Administration Vancomycin HCl 1,250 mg/ 250 mls @ 250 mls/hr 12/15/17 10:00 Dextrose IVPB DAILY JAYA Protocol Piperacillin/Tazobactam/Dextrose 50 mls @ 100 mls/hr 12/14/17 14:00 Zosyn 3.375gm Ivpb (Premix) IVPB Q8H-IV JAYA Protocol Levothyroxine Sodium 25 mcg 12/11/17 06:00 12/14/17 09:53 Synthroid - PO 25 mcg DAILY JAYA Administration Methocarbamol 1,500 mg 12/12/17 14:00 12/14/17 13:36 Robaxin - PO 1,500 mg TID JAYA Administration Metoprolol Succinate 25 mg 12/11/17 10:00 12/14/17 09:53 Toprol Xl - PO 25 mg DAILY JAYA Administration Morphine Sulfate 1 mg 12/14/17 14:04 Morphine Injection - IVPUSH Q4H PRN PAIN LEVEL 7 - 10 Symbicort 80/4.5 1 each 12/10/17 20:15 12/14/17 09:54 Patient's Own IH 1 each Medication (Non- DAILY JAYA Administration Formulary) Non-Formulary Medication 4 gm 12/11/17 10:00 12/14/17 09:55 Tiotropium [place] [Spiriva Respimat] IH 4 gm DAILY JAYA Administration Oxycodone HCl 5 mg 12/12/17 21:00 12/14/17 09:37 Roxicodone - PO 5 mg Q6H JAYA Administration Objective: Vital Signs Period Temp Pulse Resp BP Sys/Gallegos Pulse Ox Last 24 Hr 97.9 F-98.3 F 61-71 20-22 112-153/68-77 95-98 Physical Exam: General: NAD, A&Ox3 Lungs: CTA bilaterally Heart: RRR, S1S2 Abd: Soft, non-tender, non-distended. Normoactive bowel sounds Ext: Right lateral ankle with open wound and purulent drainage, surrounding erythema within marked margins CBCD WBC 5.5 K/mm3 (4.0-10.0) 12/14/17 07:52 RBC 3.46 M/mm3 (3.60-5.2) L 12/14/17 07:52 Hgb 11.3 GM/dL (10.7-15.3) 12/14/17 07:52 Hct 32.6 % (32.4-45.2) 12/14/17 07:52 MCV 94.3 fl (80-96) 12/14/17 07:52 MCHC 34.5 g/dl (32.0-36.0) 12/14/17 07:52 RDW 13.0 % (11.6-15.6) 12/14/17 07:52 Plt Count 311 K/MM3 (134-434) 12/14/17 07:52 MPV 7.2 fl (7.5-11.1) L 12/14/17 07:52 CMP Sodium 132 mmol/L (136-145) L 12/14/17 07:52 Potassium 4.7 mmol/L (3.5-5.1) 12/14/17 07:52 Chloride 96 mmol/L (98-107) L 12/14/17 07:52 Carbon Dioxide 28 mmol/L (21-32) 12/14/17 07:52 Anion Gap 8 (8-16) 12/14/17 07:52 BUN 8 mg/dL (7-18) 12/14/17 07:52 Creatinine 0.6 mg/dL (0.55-1.02) 12/14/17 07:52 Creat Clearance w eGFR > 60 (>60) 12/14/17 07:52 Random Glucose 74 mg/dL (74-106) 12/14/17 07:52 Calcium 8.7 mg/dL (8.5-10.1) 12/14/17 07:52 Total Bilirubin 0.6 mg/dL (0.2-1.0) D 12/14/17 07:52 AST 14 U/L (15-37) L 12/14/17 07:52 ALT 18 U/L (12-78) 12/14/17 07:52 Alkaline Phosphatase 81 U/L (45-117) 12/14/17 07:52 Total Protein 7.2 g/dl (6.4-8.2) 12/14/17 07:52 Albumin 3.2 g/dl (3.4-5.0) L 12/14/17 07:52 Microbiology 12/13/17 14:30 Foot - Right Lateral Wound Culture - Preliminary Presumptive Mrsa (Pbp2a Pos) 12/10/17 11:40 Blood - Peripheral Venous Blood Culture - Preliminary NO GROWTH OBTAINED AFTER 96 HOURS, INCUBATION TO CONTINUE FOR 1 DAYS. 12/10/17 11:40 Blood - Peripheral Venous Blood Culture - Preliminary NO GROWTH OBTAINED AFTER 96 HOURS, INCUBATION TO CONTINUE FOR 1 DAYS. Assessment: This is a 62 year old with PMHx of HTN, scleroderma, rheumatoid arthritis, right breast cancer s/p (chemo, radiation, mastectomy) who presented to the ED with right ankle pain, warmth, redness Plan: 1) Right lateral ankle cellulitis - Wound culture presumptive MRSA - Abx switched to Vancomycin and Zosyn - Local wound care - F/u podiatry consult 2) Acute on chronic pain - 2/2 rheumatoid arthritis - Continue Plaquenil - Continue Oxycodone - Continue Valium - Morphine 1mg IVP prn for pain 7-10 - F/u pain management consult 3) Hyponatremia - Improving - F/u urine osm, Na, serum osm, TSH, AM cortisol, chest x-ray - Appreciate nephrology consult 4) Hypothyroidism - Continue Synthroid 5) F/E/N: - Monitor electrolytes - Sodium controlled diet 6) Prophylaxis: - OOB ambulating - Lovenox 40mg sq daily 7) Dispo: - Requires continued inpatient care CODE STATUS: FULL CODE This report was requested by: Carito Mcdonald | Reference #: [id number] Patient Name: Jaja Mcdonough Date: 1955 Address: [address] [place] [address] Sex: Female Rx Written Rx Dispensed Drug Quantity Days Supply Prescriber Name 11/19/2017 11/25/2017 carisoprodol 350 mg tablet 90 30 GriseldaTee bess MD 11/19/2017 11/23/2017 oxycodone-acetaminophen 5-325 mg tablet 60 30 GriseldaTee vu MD 11/19/2017 11/23/2017 diazepam 5 mg tablet 90 30 GriseldaTee MD 10/22/2017 10/24/2017 diazepam 5 mg tablet 90 30 GriseldaTee MD 10/22/2017 10/24/2017 carisoprodol 350 mg tablet 90 30 GrsieldaTee MD 10/22/2017 10/24/2017 oxycodone-acetaminophen 5-325 mg tab 60 30 GriseldaTee bess MD 09/22/2017 09/24/2017 diazepam 5 mg tablet 90 30 GriseldaTee MD 09/22/2017 09/24/2017 carisoprodol 350 mg tablet 90 30 GriseldaTee MD 09/22/2017 09/24/2017 oxycodone-acetaminophen 5-325 mg tab 60 30 Tee Villalobos MD Visit type - Emergency Visit Emergency Visit: Yes ED Registration Date: 12/10/17 Care time: The patient presented to the Emergency Department on the above date and was hospitalized for further evaluation of their emergent condition. - New Patient This patient is new to me today: Yes Date on this admission: 12/14/17 - Critical Care Critical Care patient: No"
[2017-12-14] MEDS: ACETAMINOPHEN/CAFFEINE/BUTALBITAL 1 TAB PO PRN (15:56)
[2017-12-14] MEDS: PIPERACILLIN/TAZOB 3.375 GM 3.375 GM in DEXTROSE 5%-WATER - 50 ML IVPB SCH (16:35)
--- NOTE | 2017-12-14 21:04 | CONSULT ---
Consult - text type - Consultation Consultation Note: Patient seen in bed with a bandage on right ankle area. Complains of pain and infection of 1 week duration. vss. Tmax 98.3 possible mrsa, om? neoplasm? nvsgi, +improved cellulitis according to original line drawings, +severe tenderness Om? neoplasm? cellulitis MRI right ankle. Read and appreciated CT. Will consider biopsy of tissue right ankle area. Continue abx as per ID. Betadine dressing change to right ankle. Will follow.
[2017-12-14] MEDS: diazePAM 5 MG TABLET PO PRN (23:32)
[2017-12-15] MEDS: PIPERACILLIN/TAZOB 3.375 GM 3.375 GM in DEXTROSE 5%-WATER - 50 ML IVPB SCH ×2 (01:07→09:34)
[2017-12-15] MEDS: ACETAMINOPHEN 500 MG TABLET (FP) PO PRN ×4 (02:00→18:09)
[2017-12-15] MEDS: oxyCODONE HCL 5 MG TABLET PO SCH ×2 (02:00→08:26)
[2017-12-15] MEDS: morphine SULFATE 4 MG/ML VIAL IVPUSH PRN ×4 (05:57→20:34)
[2017-12-15] MEDS: METHOCARBAMOL 500 MG TABLET PO SCH ×3 (06:00→21:44)
[2017-12-15 08:03] LABS: ANION GAP 5 (8-16); BLOOD UREA NITROGEN 9 mg/dL (7-18); CALCIUM 8.7 mg/dL (8.5-10.1); CHLORIDE 95 mmol/L (98-107); CO2 29 mmol/L (21-32); GLUCOSE,RANDOM 74 mg/dL (74-106); POTASSIUM 4.3 mmol/L (3.5-5.1); SODIUM 129 mmol/L (136-145); URIC ACID 2.1 mg/dL (2.6-7.2)
[2017-12-15 08:14] LABS: CREATININE 0.6 mg/dL (0.55-1.02)
[2017-12-15] MEDS: ACETAMINOPHEN/CAFFEINE/BUTALBITAL 1 TAB PO PRN (08:26)
[2017-12-15] MEDS ORDERED: PT OWN MED DRAWER 7, Y5N ONE ×3 (09:32→21:18)
[2017-12-15] MEDS: LEVOTHYROXINE NA 25 MCG TABLET (FP) PO SCH (09:34)
[2017-12-15] MEDS: ENOXAPARIN NA (PORCINE) 40 MG/0.4 ML DISP.SYRIN SQ SCH (09:34)
[2017-12-15] MEDS: metoPROLOL SUCCINATE 25 MG TAB.SR.24H (FP) PO SCH (09:34)
[2017-12-15] MEDS: ASPIRIN 325 MG TABLET PO SCH (09:34)
[2017-12-15] MEDS: HYDROXYCHLOROQUINE SO4 200 MG TABLET (FP) PO SCH (09:35)
[2017-12-15] MEDS: PATIENT'S OWN MEDICATION (NON-FORMULARY) (Tiotropium Bromide [Spiriva Respimat] 4 GM) IH SCH (09:35)
[2017-12-15] MEDS: SYMBICORT IH SCH (09:35)
[2017-12-15] MEDS: diazePAM 5 MG TABLET PO PRN ×2 (09:35→18:09)
--- NOTE | 2017-12-15 10:52 | PN ---
"Progress Note (short form) - Note Progress Note: Subjective: The patient was seen and examined at the bedside, she reports her pain in better controlled today Current Medications Generic Name Dose Route Start Last Admin Trade Name Mery PRN Reason Stop Dose Admin Acetaminophen 500 mg 12/10/17 19:56 12/15/17 08:26 Tylenol - PO 500 mg Q6H PRN Administration FEVER Acetaminophen/Butalbital/Caffeine 1 tablet 12/12/17 12:29 12/15/17 08:26 Fioricet - PO 1 tablet Q6H PRN Administration HEADACHE Aspirin 325 mg 12/11/17 10:00 12/15/17 09:34 Asa - PO 325 mg DAILY JAYA Administration Diazepam 5 mg 12/14/17 13:06 12/15/17 09:35 Valium - PO 5 mg TID PRN Administration ANXIETY Enoxaparin Sodium 40 mg 12/11/17 10:00 12/15/17 09:34 Lovenox - SQ 40 mg DAILY JAYA Administration Hydroxychloroquine Sulfate 200 mg 12/11/17 10:00 12/15/17 09:35 Plaquenil - PO 200 mg DAILY JAYA Administration Vancomycin HCl 1,250 mg/ 250 mls @ 166.667 mls/hr 12/15/17 14:00 Dextrose IVPB DAILY@1400 JAYA Protocol Piperacillin Sod/Tazobactam 50 mls @ 100 mls/hr 12/14/17 14:30 12/15/17 09:34 Sod 3.375 gm/ Dextrose IVPB 100 mls/hr Q8H-IV JAYA Administration Protocol Levothyroxine Sodium 25 mcg 12/11/17 06:00 12/15/17 09:34 Synthroid - PO 25 mcg DAILY JAYA Administration Methocarbamol 1,500 mg 12/12/17 14:00 12/15/17 06:00 Robaxin - PO 1,500 mg TID JAYA Administration Metoprolol Succinate 25 mg 12/11/17 10:00 12/15/17 09:34 Toprol Xl - PO 25 mg DAILY JAYA Administration Morphine Sulfate 1 mg 12/14/17 14:04 12/15/17 05:57 Morphine Sulfate IVPUSH 1 mg Q4H PRN Administration PAIN LEVEL 7 - 10 Symbicort 80/4.5 1 each 12/10/17 20:15 12/15/17 09:35 Patient's Own IH 1 each Medication (Non- DAILY JAYA Administration Formulary) Non-Formulary Medication 4 gm 12/11/17 10:00 12/15/17 09:35 Tiotropium [place] [Spiriva Respimat] IH 4 gm DAILY JAYA Administration Oxycodone HCl 5 mg 12/15/17 09:51 Roxicodone - PO Q4H PRN PAIN LEVEL 1-5 Sodium Chloride 1 gm 12/15/17 10:30 Sodium Chloride Tablet - PO BID JAYA Objective: Vital Signs Period Temp Pulse Resp BP Sys/Gallegos Pulse Ox Last 24 Hr 97.7 F-98.3 F 63-81 20-20 132-157/73-82 96 Physical Exam: General: NAD, A&Ox3 Lungs: CTA bilaterally Heart: RRR, S1S2 Abd: Soft, non-tender, non-distended. Normoactive bowel sounds Ext: Right ankle dressing, c/d/i CBCD WBC 5.5 K/mm3 (4.0-10.0) 12/14/17 07:52 RBC 3.46 M/mm3 (3.60-5.2) L 12/14/17 07:52 Hgb 11.3 GM/dL (10.7-15.3) 12/14/17 07:52 Hct 32.6 % (32.4-45.2) 12/14/17 07:52 MCV 94.3 fl (80-96) 12/14/17 07:52 MCHC 34.5 g/dl (32.0-36.0) 12/14/17 07:52 RDW 13.0 % (11.6-15.6) 12/14/17 07:52 Plt Count 311 K/MM3 (134-434) 12/14/17 07:52 MPV 7.2 fl (7.5-11.1) L 12/14/17 07:52 CMP Sodium 129 mmol/L (136-145) L 12/15/17 06:00 Potassium 4.3 mmol/L (3.5-5.1) 12/15/17 06:00 Chloride 95 mmol/L (98-107) L 12/15/17 06:00 Carbon Dioxide 29 mmol/L (21-32) 12/15/17 06:00 Anion Gap 5 (8-16) L 12/15/17 06:00 BUN 9 mg/dL (7-18) 12/15/17 06:00 Creatinine 0.6 mg/dL (0.55-1.02) 12/15/17 06:00 Creat Clearance w eGFR > 60 (>60) 12/14/17 07:52 Random Glucose 74 mg/dL (74-106) 12/15/17 06:00 Calcium 8.7 mg/dL (8.5-10.1) 12/15/17 06:00 Total Bilirubin 0.6 mg/dL (0.2-1.0) D 12/14/17 07:52 AST 14 U/L (15-37) L 12/14/17 07:52 ALT 18 U/L (12-78) 12/14/17 07:52 Alkaline Phosphatase 81 U/L (45-117) 12/14/17 07:52 Total Protein 7.2 g/dl (6.4-8.2) 12/14/17 07:52 Albumin 3.2 g/dl (3.4-5.0) L 12/14/17 07:52 Microbiology 12/13/17 14:30 Foot - Right Lateral Gram Stain - Final 12/13/17 14:30 Foot - Right Lateral Wound Culture - Preliminary Presumptive Mrsa (Pbp2a Pos) 12/10/17 11:40 Blood - Peripheral Venous Blood Culture - Preliminary NO GROWTH OBTAINED AFTER 96 HOURS, INCUBATION TO CONTINUE FOR 1 DAYS. 12/10/17 11:40 Blood - Peripheral Venous Blood Culture - Preliminary NO GROWTH OBTAINED AFTER 96 HOURS, INCUBATION TO CONTINUE FOR 1 DAYS. Assessment: This is a 62 year old with PMHx of HTN, scleroderma, rheumatoid arthritis, right breast cancer s/p (chemo, radiation, mastectomy) who presented to the ED with right ankle pain, warmth, redness Plan: 1) Right lateral ankle cellulitis - Wound culture presumptive MRSA - Continue Vancomycin and Zosyn - Local wound care - F/u MRI to r/o osteo - Appreciate podiatry consult 2) Acute on chronic pain - 2/2 rheumatoid arthritis - Continue Plaquenil - Continue Oxycodone - Continue Valium - Morphine 1mg IVP prn for pain 7-10 - F/u pain management consult 3) Hyponatremia - Worsening today - F/u urine osm, Na, serum osm, TSH, AM cortisol - Appreciate nephrology consult 4) Hypothyroidism - Continue Synthroid 5) F/E/N: - Monitor electrolytes - Sodium controlled diet 6) Prophylaxis: - OOB ambulating - Lovenox 40mg sq daily 7) Dispo: - Requires continued inpatient care CODE STATUS: FULL CODE This report was requested by: Carito Mcdonald | Reference #: [id number] Patient Name: Jaja Mcdonough Date: 1955 Address: [address] [place] [address] Sex: Female Rx Written Rx Dispensed Drug Quantity Days Supply Prescriber Name 11/19/2017 11/25/2017 carisoprodol 350 mg tablet 90 30 GriseldaTee MD 11/19/2017 11/23/2017 oxycodone-acetaminophen 5-325 mg tablet 60 30 GriseldaTee MD 11/19/2017 11/23/2017 diazepam 5 mg tablet 90 30 Griselda, Tee Mcgee MD 10/22/2017 10/24/2017 diazepam 5 mg tablet 90 30 GriseldaTee MD 10/22/2017 10/24/2017 carisoprodol 350 mg tablet 90 30 Griselda, Tee Mcgee MD 10/22/2017 10/24/2017 oxycodone-acetaminophen 5-325 mg tab 60 30 GriseldaTee bess MD 09/22/2017 09/24/2017 diazepam 5 mg tablet 90 30 GriseldaTee MD 09/22/2017 09/24/2017 carisoprodol 350 mg tablet 90 30 GriseldaTee MD 09/22/2017 09/24/2017 oxycodone-acetaminophen 5-325 mg tab 60 30 GriseldaTee bess MD Visit type - Emergency Visit Emergency Visit: Yes ED Registration Date: 12/10/17 Care time: The patient presented to the Emergency Department on the above date and was hospitalized for further evaluation of their emergent condition. - New Patient This patient is new to me today: No - Critical Care Critical Care patient: No"
[2017-12-15] MEDS: SODIUM CHLORIDE 1 GM TABLET PO SCH ×2 (12:09→21:39)
--- NOTE | 2017-12-15 12:59 | PN ---
Progress Note, Physician History of Present Illness: stable no new issues dsg in place - Current Medication List Current Medications: Active Medications Acetaminophen (Tylenol -) 500 mg PO Q6H PRN PRN Reason: FEVER Last Admin: 12/15/17 08:26 Dose: 500 mg Aspirin (Asa -) 325 mg PO DAILY [facility] Last Admin: 12/15/17 09:34 Dose: 325 mg Diazepam (Valium -) 5 mg PO TID PRN PRN Reason: ANXIETY Last Admin: 12/15/17 09:35 Dose: 5 mg Enoxaparin Sodium (Lovenox -) 40 mg SQ DAILY [facility] Last Admin: 12/15/17 09:34 Dose: 40 mg Hydroxychloroquine Sulfate (Plaquenil -) 200 mg PO DAILY [facility] Last Admin: 12/15/17 09:35 Dose: 200 mg Vancomycin HCl 1,250 mg/ (Dextrose) 250 mls @ 166.667 mls/hr IVPB DAILY@1400 JAYA PRN Reason: Protocol Piperacillin Sod/Tazobactam (Sod 3.375 gm/ Dextrose) 50 mls @ 100 mls/hr IVPB Q8H-IV JAYA PRN Reason: Protocol Last Admin: 12/15/17 09:34 Dose: 100 mls/hr Levothyroxine Sodium (Synthroid -) 25 mcg PO DAILY [facility] Last Admin: 12/15/17 09:34 Dose: 25 mcg Methocarbamol (Robaxin -) 1,500 mg PO TID [facility] Last Admin: 12/15/17 06:00 Dose: 1,500 mg Metoprolol Succinate (Toprol Xl -) 25 mg PO DAILY [facility] Last Admin: 12/15/17 09:34 Dose: 25 mg Morphine Sulfate (Morphine Sulfate) 1 mg IVPUSH Q4H PRN PRN Reason: PAIN LEVEL 7 - 10 Last Admin: 12/15/17 11:11 Dose: 1 mg Symbicort 80/4.5 Patient's Own Medication (Non- Formulary) 1 each IH DAILY [facility] Last Admin: 12/15/17 09:35 Dose: 1 each Non-Formulary Medication (Tiotropium [place] [Spiriva Respimat]) 4 gm IH DAILY [facility] Last Admin: 12/15/17 09:35 Dose: 4 gm Oxycodone HCl (Roxicodone -) 5 mg PO Q4H PRN PRN Reason: PAIN LEVEL 1-5 Sodium Chloride (Sodium Chloride Tablet -) 1 gm PO BID JAYA Last Admin: 12/15/17 12:09 Dose: 1 gm - Objective Vital Signs: Vital Signs Temperature 97.9 F 12/15/17 09:00 Pulse Rate 70 12/15/17 09:00 Respiratory Rate 20 12/15/17 09:00 Blood Pressure 133/81 12/15/17 09:00 O2 Sat by Pulse Oximetry (%) 98 12/15/17 09:00 Constitutional: Yes: No Distress, Calm Cardiovascular: Yes: Regular Rate and Rhythm Respiratory: Yes: Regular, CTA Bilaterally Gastrointestinal: Yes: Normal Bowel Sounds, Soft Musculoskeletal: Yes: WNL Extremities: Yes: Other Wound/Incision: Yes: Dressing Dry and Intact Neurological: Yes: Alert, Oriented Psychiatric: Yes: Alert, Oriented Labs: CBC, BMP 12/14/17 07:52 12/15/17 06:00 INR, PTT INR 1.17 (0.82-1.09) H 12/10/17 11:40 Assessment/Plan hyponatremia le cellulitits abscess /collection left ankle joint mrsa wound infection scleroderma hypothyrodism patient has already got unasyn and clinda and the patient still is growing mrsa plan continue vanco vanco trough before the 4th daose will change zosyn to ceftriaxone podiatry note noted rest as per primary team
[2017-12-15] MEDS ORDERED: DEXTROSE 5%-WATER - 50 ML IVPB ONE (13:27)
[2017-12-15] MEDS ORDERED: cefTRIAXone SODIUM 1 GM VIAL ONE (13:27)
[2017-12-15] MEDS: CEFTRIAXONE 1 GM in DEXTROSE 5%-WATER - 50 ML IVPB SCH (13:43)
[2017-12-15] MEDS: oxyCODONE HCL 5 MG TABLET PO PRN ×2 (14:00→18:09)
[2017-12-15] MEDS: VANCOMYCIN 1,250 MG in DEXTROSE 5%-WATER - 250 ML IVPB SCH (14:33)
--- NOTE | 2017-12-15 14:42 | PN ---
Progress Note (short form) - Note Progress Note: Renal follow up for Hyponatremia Pt seen and examined at the bedside awake and alert no acute complaints no confusion, lethargy, weakness, seizures Vital Signs Temperature 97.7 F 12/15/17 14:01 Pulse Rate 68 12/15/17 14:01 Respiratory Rate 20 12/15/17 14:01 Blood Pressure 104/68 12/15/17 14:01 O2 Sat by Pulse Oximetry (%) 98 12/15/17 09:00 Intake & Output 12/12/17 12/13/17 12/14/17 12/15/17 23:59 23:59 23:59 23:59 Intake Total 1050 1200 250 350 Balance 1050 1200 250 350 NAD MMM No JVD neck supple No LE edema CBC, BMP 12/14/17 07:52 12/15/17 06:00 Current Medications Acetaminophen (Tylenol -) 500 mg PO Q6H PRN PRN Reason: FEVER Last Admin: 12/15/17 14:00 Dose: 500 mg Aspirin (Asa -) 325 mg PO DAILY [facility] Last Admin: 12/15/17 09:34 Dose: 325 mg Diazepam (Valium -) 5 mg PO TID PRN PRN Reason: ANXIETY Last Admin: 12/15/17 09:35 Dose: 5 mg Enoxaparin Sodium (Lovenox -) 40 mg SQ DAILY [facility] Last Admin: 12/15/17 09:34 Dose: 40 mg Hydroxychloroquine Sulfate (Plaquenil -) 200 mg PO DAILY [facility] Last Admin: 12/15/17 09:35 Dose: 200 mg Vancomycin HCl 1,250 mg/ (Dextrose) 250 mls @ 166.667 mls/hr IVPB DAILY@1400 JAYA PRN Reason: Protocol Last Admin: 12/15/17 14:33 Dose: 166.667 mls/hr Ceftriaxone Sodium 1 gm/ (Dextrose) 50 mls @ 100 mls/hr IVPB DAILY [facility] Last Admin: 12/15/17 13:43 Dose: 100 mls/hr Levothyroxine Sodium (Synthroid -) 25 mcg PO DAILY [facility] Last Admin: 12/15/17 09:34 Dose: 25 mcg Methocarbamol (Robaxin -) 1,500 mg PO TID [facility] Last Admin: 12/15/17 13:44 Dose: 1,500 mg Metoprolol Succinate (Toprol Xl -) 25 mg PO DAILY [facility] Last Admin: 12/15/17 09:34 Dose: 25 mg Morphine Sulfate (Morphine Sulfate) 1 mg IVPUSH Q4H PRN PRN Reason: PAIN LEVEL 7 - 10 Last Admin: 12/15/17 11:11 Dose: 1 mg Symbicort 80/4.5 Patient's Own Medication (Non- Formulary) 1 each IH DAILY [facility] Last Admin: 12/15/17 09:35 Dose: 1 each Non-Formulary Medication (Tiotropium [place] [Spiriva Respimat]) 4 gm IH DAILY [facility] Last Admin: 12/15/17 09:35 Dose: 4 gm Oxycodone HCl (Roxicodone -) 5 mg PO Q4H PRN PRN Reason: PAIN LEVEL 1-5 Last Admin: 12/15/17 14:00 Dose: 5 mg Sodium Chloride (Sodium Chloride Tablet -) 1 gm PO BID [facility] Last Admin: 12/15/17 12:09 Dose: 1 gm 62 year old woman with PMhx of Scleroderma, RA, Hypertension, Hypothyrodism presented with wound on her lower leg and admitted for cellulitis with hyponatremia. #Evolemic Hyponatremia secondary to suspected SIADH #LE cellulitis #Scleroderma #Hx of RA #Hypothyrodism Urine studies consistent with SIADH Will start fluid restriction of 1 L daily start salt tabs 1g BID trend Na daily no indication for 3% saline CXR negative for any pathology Rosalio Shelley DO
[2017-12-15] MEDS: PANTOPRAZOLE 40 MG TABLET (FP) PO SCH (15:09)
[2017-12-16] MEDS: ACETAMINOPHEN 500 MG TABLET (FP) PO PRN ×3 (00:23→19:47)
[2017-12-16] MEDS: oxyCODONE HCL 5 MG TABLET PO PRN ×6 (00:23→23:54)
[2017-12-16] MEDS: morphine SULFATE 4 MG/ML VIAL IVPUSH PRN ×4 (02:49→22:20)
[2017-12-16] MEDS: METHOCARBAMOL 500 MG TABLET PO SCH ×3 (05:31→22:19)
[2017-12-16 08:05] LABS: ANION GAP 9 (8-16); BLOOD UREA NITROGEN 9 mg/dL (7-18); CALCIUM 9.1 mg/dL (8.5-10.1); CHLORIDE 96 mmol/L (98-107); CO2 28 mmol/L (21-32); CREATININE 0.7 mg/dL (0.55-1.02); GLUCOSE,RANDOM 80 mg/dL (74-106); POTASSIUM 4.7 mmol/L (3.5-5.1); SODIUM 133 mmol/L (136-145)
[2017-12-16] MEDS ORDERED: cefTRIAXone SODIUM 1 GM VIAL ONE (09:13)
[2017-12-16] MEDS ORDERED: DEXTROSE 5%-WATER - 50 ML IVPB ONE (09:13)
[2017-12-16] MEDS: ASPIRIN 325 MG TABLET PO SCH (09:36)
[2017-12-16] MEDS: ENOXAPARIN NA (PORCINE) 40 MG/0.4 ML DISP.SYRIN SQ SCH (09:36)
[2017-12-16] MEDS: HYDROXYCHLOROQUINE SO4 200 MG TABLET (FP) PO SCH (09:36)
[2017-12-16] MEDS: CEFTRIAXONE 1 GM in DEXTROSE 5%-WATER - 50 ML IVPB SCH (09:36)
[2017-12-16] MEDS: metoPROLOL SUCCINATE 25 MG TAB.SR.24H (FP) PO SCH (09:38)
[2017-12-16] MEDS: LEVOTHYROXINE NA 25 MCG TABLET (FP) PO SCH (09:38)
[2017-12-16] MEDS: ACETAMINOPHEN/CAFFEINE/BUTALBITAL 1 TAB PO PRN ×3 (09:38→23:52)
[2017-12-16] MEDS: PANTOPRAZOLE 40 MG TABLET (FP) PO SCH (09:38)
[2017-12-16] MEDS: SODIUM CHLORIDE 1 GM TABLET PO SCH ×2 (09:39→22:19)
[2017-12-16] MEDS: SYMBICORT IH SCH (09:49)
[2017-12-16] MEDS: PATIENT'S OWN MEDICATION (NON-FORMULARY) (Tiotropium Bromide [Spiriva Respimat] 4 GM) IH SCH (09:49)
--- NOTE | 2017-12-16 11:34 | PN ---
Progress Note, Physician History of Present Illness: patient stable doing well seen by podiatry mri - Current Medication List Current Medications: Active Medications Acetaminophen (Tylenol -) 500 mg PO Q6H PRN PRN Reason: FEVER Last Admin: 12/16/17 09:36 Dose: 500 mg Acetaminophen/Butalbital/Caffeine (Fioricet -) 1 tablet PO Q6H PRN PRN Reason: HEADACHE Last Admin: 12/16/17 09:38 Dose: 1 tablet Aspirin (Asa -) 325 mg PO DAILY [facility] Last Admin: 12/16/17 09:36 Dose: 325 mg Diazepam (Valium -) 5 mg PO TID PRN PRN Reason: ANXIETY Last Admin: 12/15/17 18:09 Dose: 5 mg Enoxaparin Sodium (Lovenox -) 40 mg SQ DAILY [facility] Last Admin: 12/16/17 09:36 Dose: 40 mg Hydroxychloroquine Sulfate (Plaquenil -) 200 mg PO DAILY [facility] Last Admin: 12/16/17 09:36 Dose: 200 mg Vancomycin HCl 1,250 mg/ (Dextrose) 250 mls @ 166.667 mls/hr IVPB DAILY@1400 JAYA PRN Reason: Protocol Last Admin: 12/15/17 14:33 Dose: 166.667 mls/hr Ceftriaxone Sodium 1 gm/ (Dextrose) 50 mls @ 100 mls/hr IVPB DAILY [facility] Last Admin: 12/16/17 09:36 Dose: 100 mls/hr Levothyroxine Sodium (Synthroid -) 25 mcg PO DAILY [facility] Last Admin: 12/16/17 09:38 Dose: 25 mcg Methocarbamol (Robaxin -) 1,500 mg PO TID [facility] Last Admin: 12/16/17 05:31 Dose: 1,500 mg Metoprolol Succinate (Toprol Xl -) 25 mg PO DAILY [facility] Last Admin: 12/16/17 09:38 Dose: 25 mg Morphine Sulfate (Morphine Sulfate) 1 mg IVPUSH Q4H PRN PRN Reason: PAIN LEVEL 7 - 10 Last Admin: 12/16/17 02:49 Dose: 1 mg Symbicort 80/4.5 Patient's Own Medication (Non- Formulary) 1 each IH DAILY [facility] Last Admin: 12/16/17 09:49 Dose: 1 each Non-Formulary Medication (Tiotropium [place] [Spiriva Respimat]) 4 gm IH DAILY [facility] Last Admin: 12/16/17 09:49 Dose: 4 gm Oxycodone HCl (Roxicodone -) 5 mg PO Q4H PRN PRN Reason: PAIN LEVEL 1-5 Last Admin: 12/16/17 09:37 Dose: 5 mg Pantoprazole Sodium (Protonix -) 40 mg PO DAILY [facility] Last Admin: 12/16/17 09:38 Dose: 40 mg Sodium Chloride (Sodium Chloride Tablet -) 1 gm PO BID [facility] Last Admin: 12/16/17 09:39 Dose: 1 gm - Objective Vital Signs: Vital Signs Temperature 98.1 F 12/16/17 10:00 Pulse Rate 79 12/16/17 10:00 Respiratory Rate 20 12/16/17 10:00 Blood Pressure 125/90 12/16/17 10:00 O2 Sat by Pulse Oximetry (%) 96 12/15/17 20:40 Constitutional: Yes: No Distress, Calm, Thin Cardiovascular: Yes: Regular Rate and Rhythm Respiratory: Yes: Regular, CTA Bilaterally Gastrointestinal: Yes: Normal Bowel Sounds Musculoskeletal: Yes: Other Extremities: Yes: Other Wound/Incision: Yes: Other Neurological: Yes: Alert, Oriented Psychiatric: Yes: Alert, Oriented Labs: CBC, BMP 12/14/17 07:52 12/16/17 06:00 INR, PTT INR 1.17 (0.82-1.09) H 12/10/17 11:40 Assessment/Plan hyponatremia le cellulitits abscess /collection left ankle joint mrsa wound infection scleroderma hypothyrodism patient has already got unasyn and clinda and the patient still is growing mrsa plan continue abx podiatry note noted rest as per primary team await for mri result rest as per the teams
[2017-12-16] MEDS: diazePAM 5 MG TABLET PO PRN ×2 (13:54→20:40)
[2017-12-16] MEDS: VANCOMYCIN 1,250 MG in DEXTROSE 5%-WATER - 250 ML IVPB SCH (15:00)
--- NOTE | 2017-12-16 16:44 | PN ---
"Progress Note (short form) - Note Progress Note: Subjective: The patient was seen and examined at the bedside, she reports her pain in better controlled today Current Medications Generic Name Dose Route Start Last Admin Trade Name Mery PRN Reason Stop Dose Admin Acetaminophen 500 mg 12/10/17 19:56 12/15/17 08:26 Tylenol - PO 500 mg Q6H PRN Administration FEVER Acetaminophen/Butalbital/Caffeine 1 tablet 12/12/17 12:29 12/15/17 08:26 Fioricet - PO 1 tablet Q6H PRN Administration HEADACHE Aspirin 325 mg 12/11/17 10:00 12/15/17 09:34 Asa - PO 325 mg DAILY JAYA Administration Diazepam 5 mg 12/14/17 13:06 12/15/17 09:35 Valium - PO 5 mg TID PRN Administration ANXIETY Enoxaparin Sodium 40 mg 12/11/17 10:00 12/15/17 09:34 Lovenox - SQ 40 mg DAILY JAYA Administration Hydroxychloroquine Sulfate 200 mg 12/11/17 10:00 12/15/17 09:35 Plaquenil - PO 200 mg DAILY [facility]A Administration Vancomycin HCl 1,250 mg/ 250 mls @ 166.667 mls/hr 12/15/17 14:00 Dextrose IVPB DAILY@1400 JAYA Protocol Piperacillin Sod/Tazobactam 50 mls @ 100 mls/hr 12/14/17 14:30 12/15/17 09:34 Sod 3.375 gm/ Dextrose IVPB 100 mls/hr Q8H-IV JAYA Administration Protocol Levothyroxine Sodium 25 mcg 12/11/17 06:00 12/15/17 09:34 Synthroid - PO 25 mcg DAILY [facility]A Administration Methocarbamol 1,500 mg 12/12/17 14:00 12/15/17 06:00 Robaxin - PO 1,500 mg TID JAYA Administration Metoprolol Succinate 25 mg 12/11/17 10:00 12/15/17 09:34 Toprol Xl - PO 25 mg DAILY J[facility]A Administration Morphine Sulfate 1 mg 12/14/17 14:04 12/15/17 05:57 Morphine Sulfate IVPUSH 1 mg Q4H PRN Administration PAIN LEVEL 7 - 10 Symbicort 80/4.5 1 each 12/10/17 20:15 12/15/17 09:35 Patient's Own IH 1 each Medication (Non- DAILY JAYA Administration Formulary) Non-Formulary Medication 4 gm 12/11/17 10:00 12/15/17 09:35 Tiotropium [place] [Spiriva Respimat] IH 4 gm DAILY JAYA Administration Oxycodone HCl 5 mg 12/15/17 09:51 Roxicodone - PO Q4H PRN PAIN LEVEL 1-5 Sodium Chloride 1 gm 12/15/17 10:30 Sodium Chloride Tablet - PO BID JAYA Objective: Vital Signs Period Temp Pulse Resp BP Sys/Gallegos Pulse Ox Last 24 Hr 97.7 F-98.3 F 63-81 20-20 132-157/73-82 96 Physical Exam: General: NAD, A&Ox3 Lungs: CTA bilaterally Heart: RRR, S1S2 Abd: Soft, non-tender, non-distended. Normoactive bowel sounds Ext: Right ankle dressing, c/d/i CBCD WBC 5.5 K/mm3 (4.0-10.0) 12/14/17 07:52 RBC 3.46 M/mm3 (3.60-5.2) L 12/14/17 07:52 Hgb 11.3 GM/dL (10.7-15.3) 12/14/17 07:52 Hct 32.6 % (32.4-45.2) 12/14/17 07:52 MCV 94.3 fl (80-96) 12/14/17 07:52 MCHC 34.5 g/dl (32.0-36.0) 12/14/17 07:52 RDW 13.0 % (11.6-15.6) 12/14/17 07:52 Plt Count 311 K/MM3 (134-434) 12/14/17 07:52 MPV 7.2 fl (7.5-11.1) L 12/14/17 07:52 CMP Sodium 129 mmol/L (136-145) L 12/15/17 06:00 Potassium 4.3 mmol/L (3.5-5.1) 12/15/17 06:00 Chloride 95 mmol/L (98-107) L 12/15/17 06:00 Carbon Dioxide 29 mmol/L (21-32) 12/15/17 06:00 Anion Gap 5 (8-16) L 12/15/17 06:00 BUN 9 mg/dL (7-18) 12/15/17 06:00 Creatinine 0.6 mg/dL (0.55-1.02) 12/15/17 06:00 Creat Clearance w eGFR > 60 (>60) 12/14/17 07:52 Random Glucose 74 mg/dL (74-106) 12/15/17 06:00 Calcium 8.7 mg/dL (8.5-10.1) 12/15/17 06:00 Total Bilirubin 0.6 mg/dL (0.2-1.0) D 12/14/17 07:52 AST 14 U/L (15-37) L 12/14/17 07:52 ALT 18 U/L (12-78) 12/14/17 07:52 Alkaline Phosphatase 81 U/L (45-117) 12/14/17 07:52 Total Protein 7.2 g/dl (6.4-8.2) 12/14/17 07:52 Albumin 3.2 g/dl (3.4-5.0) L 12/14/17 07:52 Microbiology 12/13/17 14:30 Foot - Right Lateral Gram Stain - Final 12/13/17 14:30 Foot - Right Lateral Wound Culture - Preliminary Presumptive Mrsa (Pbp2a Pos) 12/10/17 11:40 Blood - Peripheral Venous Blood Culture - Preliminary NO GROWTH OBTAINED AFTER 96 HOURS, INCUBATION TO CONTINUE FOR 1 DAYS. 12/10/17 11:40 Blood - Peripheral Venous Blood Culture - Preliminary NO GROWTH OBTAINED AFTER 96 HOURS, INCUBATION TO CONTINUE FOR 1 DAYS. Assessment: This is a 62 year old with PMHx of HTN, scleroderma, rheumatoid arthritis, right breast cancer s/p (chemo, radiation, mastectomy) who presented to the ED with right ankle pain, warmth, redness Plan: 1) Right lateral ankle cellulitis - Wound culture presumptive MRSA - Continue Vancomycin and Ceftriaxone - Local wound care - F/u MRI to r/o osteo - Appreciate podiatry consult 2) Acute on chronic pain - 2/2 rheumatoid arthritis - Continue Plaquenil - Continue Oxycodone - Continue Valium - Morphine 2mg IVP prn for pain 7-10 - F/u pain management consult 3) Hyponatremia - Improving - Labs consistent with SIADH - Start fluid restriction 1L daily - Salt tabs 1g BID - Appreciate nephrology consult 4) Hypothyroidism - Continue Synthroid 5) F/E/N: - Monitor electrolytes - Sodium controlled diet 6) Prophylaxis: - OOB ambulating - Lovenox 40mg sq daily 7) Dispo: - Requires continued inpatient care CODE STATUS: FULL CODE This report was requested by: Carito Mcdonald | Reference #: [id number] Patient Name: Jaja Mcdonough Date: 1955 Address: [address] [place] [address] Sex: Female Rx Written Rx Dispensed Drug Quantity Days Supply Prescriber Name 11/19/2017 11/25/2017 carisoprodol 350 mg tablet 90 30 GriseldaTee MD 11/19/2017 11/23/2017 oxycodone-acetaminophen 5-325 mg tablet 60 30 GriseldaTee vu MD 11/19/2017 11/23/2017 diazepam 5 mg tablet 90 30 Griselda, Tee Mcgee MD 10/22/2017 10/24/2017 diazepam 5 mg tablet 90 30 GriseldaTee MD 10/22/2017 10/24/2017 carisoprodol 350 mg tablet 90 30 GriseldaTee MD 10/22/2017 10/24/2017 oxycodone-acetaminophen 5-325 mg tab 60 30 GriseldaTee bess MD 09/22/2017 09/24/2017 diazepam 5 mg tablet 90 30 GriseldaTee MD 09/22/2017 09/24/2017 carisoprodol 350 mg tablet 90 30 GriseldaTee MD 09/22/2017 09/24/2017 oxycodone-acetaminophen 5-325 mg tab 60 30 Tee Villalobos MD Visit type - Emergency Visit Emergency Visit: Yes ED Registration Date: 12/10/17 Care time: The patient presented to the Emergency Department on the above date and was hospitalized for further evaluation of their emergent condition. - New Patient This patient is new to me today: No - Critical Care Critical Care patient: No"
--- NOTE | 2017-12-16 18:01 | PN ---
Progress Note (short form) - Note Progress Note: Renal follow up for Hyponatremia Pt seen and examined at the bedside no acute complaints Vital Signs Temperature 98.1 F 12/16/17 13:54 Pulse Rate 73 12/16/17 13:54 Respiratory Rate 20 12/16/17 13:54 Blood Pressure 155/82 12/16/17 13:54 O2 Sat by Pulse Oximetry (%) 96 12/16/17 09:00 Intake & Output 12/13/17 12/14/17 12/15/17 12/16/17 23:59 23:59 23:59 23:59 Intake Total 8610 138 5151 950 Balance 7448 789 9193 950 NAD MMM No JVD neck supple No LE edema CBC, BMP 12/14/17 07:52 12/16/17 06:00 Current Medications Acetaminophen (Tylenol -) 500 mg PO Q6H PRN PRN Reason: FEVER Last Admin: 12/16/17 09:36 Dose: 500 mg Acetaminophen/Butalbital/Caffeine (Fioricet -) 1 tablet PO Q6H PRN PRN Reason: HEADACHE Last Admin: 12/16/17 17:09 Dose: 1 tablet Aspirin (Asa -) 325 mg PO DAILY [facility] Last Admin: 12/16/17 09:36 Dose: 325 mg Diazepam (Valium -) 5 mg PO TID PRN PRN Reason: ANXIETY Last Admin: 12/16/17 13:54 Dose: 5 mg Enoxaparin Sodium (Lovenox -) 40 mg SQ DAILY [facility] Last Admin: 12/16/17 09:36 Dose: 40 mg Hydroxychloroquine Sulfate (Plaquenil -) 200 mg PO DAILY [facility]A Last Admin: 12/16/17 09:36 Dose: 200 mg Vancomycin HCl 1,250 mg/ (Dextrose) 250 mls @ 166.667 mls/hr IVPB DAILY@1400 JAYA PRN Reason: Protocol Last Admin: 12/16/17 15:00 Dose: 166.667 mls/hr Ceftriaxone Sodium 1 gm/ (Dextrose) 50 mls @ 100 mls/hr IVPB DAILY [facility] Last Admin: 12/16/17 09:36 Dose: 100 mls/hr Levothyroxine Sodium (Synthroid -) 25 mcg PO DAILY [facility]AYA Last Admin: 12/16/17 09:38 Dose: 25 mcg Methocarbamol (Robaxin -) 1,500 mg PO TID JAYA Last Admin: 12/16/17 13:54 Dose: 1,500 mg Metoprolol Succinate (Toprol Xl -) 25 mg PO DAILY [facility] Last Admin: 12/16/17 09:38 Dose: 25 mg Morphine Sulfate (Morphine Sulfate) 2 mg IVPUSH Q4H PRN PRN Reason: PAIN LEVEL 7 - 10 Last Admin: 12/16/17 17:09 Dose: 2 mg Symbicort 80/4.5 Patient's Own Medication (Non- Formulary) 1 each IH DAILY [facility] Last Admin: 12/16/17 09:49 Dose: 1 each Non-Formulary Medication (Tiotropium [place] [Spiriva Respimat]) 4 gm IH DAILY [facility] Last Admin: 12/16/17 09:49 Dose: 4 gm Oxycodone HCl (Roxicodone -) 5 mg PO Q4H PRN PRN Reason: PAIN LEVEL 1-5 Last Admin: 12/16/17 13:54 Dose: 5 mg Pantoprazole Sodium (Protonix -) 40 mg PO DAILY [facility] Last Admin: 12/16/17 09:38 Dose: 40 mg Sodium Chloride (Sodium Chloride Tablet -) 1 gm PO BID [facility] Last Admin: 12/16/17 09:39 Dose: 1 gm 62 year old woman with PMhx of Scleroderma, RA, Hypertension, Hypothyrodism presented with wound on her lower leg and admitted for cellulitis with hyponatremia. #Evolemic Hyponatremia secondary to suspected SIADH #LE cellulitis #Scleroderma #Hx of RA #Hypothyrodism Serum Na improving continue salt tabs and fluid restriction if Na improves to > 135 in AM can liberalize fluid intake and monitor Rosalio Shelley DO
--- NOTE | 2017-12-16 23:21 | PN ---
Progress Note (short form) - Note Progress Note: Patient seen in bed this morning with a bandage on right ankle area. Still in pain. MRI not done yet. vss. Tmax 97.9 mrsa, om? neoplasm? nvsgi, +improved cellulitis according to original line drawings, +moderate tenderness Om? neoplasm? cellulitis MRI right ankle. Will consider biopsy of tissue right ankle area. Continue abx as per ID. Betadine dressing change to right ankle daily. Will follow. Awaiting MRI result.
[2017-12-17] MEDS: morphine SULFATE 4 MG/ML VIAL IVPUSH PRN ×5 (04:54→23:39)
[2017-12-17] MEDS: diazePAM 5 MG TABLET PO PRN ×4 (05:51→22:51)
[2017-12-17] MEDS: ACETAMINOPHEN 500 MG TABLET (FP) PO PRN ×3 (05:51→19:13)
[2017-12-17] MEDS: METHOCARBAMOL 500 MG TABLET PO SCH ×3 (05:51→22:51)
[2017-12-17] MEDS: oxyCODONE HCL 5 MG TABLET PO PRN ×4 (05:52→22:51)
[2017-12-17 07:54] LABS: ANION GAP 5 (8-16); BLOOD UREA NITROGEN 16 mg/dL (7-18); CALCIUM 8.5 mg/dL (8.5-10.1); CHLORIDE 100 mmol/L (98-107); CO2 26 mmol/L (21-32); CREATININE 0.7 mg/dL (0.55-1.02); GLUCOSE,RANDOM 77 mg/dL (74-106); POTASSIUM 4.2 mmol/L (3.5-5.1); SODIUM 131 mmol/L (136-145)
[2017-12-17] MEDS ORDERED: cefTRIAXone SODIUM 1 GM VIAL ONE (09:35)
[2017-12-17] MEDS ORDERED: DEXTROSE 5%-WATER - 50 ML IVPB ONE (09:35)
[2017-12-17] MEDS: CEFTRIAXONE 1 GM in DEXTROSE 5%-WATER - 50 ML IVPB SCH (09:50)
[2017-12-17] MEDS: ENOXAPARIN NA (PORCINE) 40 MG/0.4 ML DISP.SYRIN SQ SCH (09:50)
[2017-12-17] MEDS: PANTOPRAZOLE 40 MG TABLET (FP) PO SCH (09:51)
[2017-12-17] MEDS: SODIUM CHLORIDE 1 GM TABLET PO SCH ×2 (09:51→22:52)
[2017-12-17] MEDS: metoPROLOL SUCCINATE 25 MG TAB.SR.24H (FP) PO SCH (09:51)
[2017-12-17] MEDS: HYDROXYCHLOROQUINE SO4 200 MG TABLET (FP) PO SCH (09:51)
[2017-12-17] MEDS: LEVOTHYROXINE NA 25 MCG TABLET (FP) PO SCH (09:51)
[2017-12-17] MEDS: ASPIRIN 325 MG TABLET PO SCH (09:51)
[2017-12-17] MEDS: SYMBICORT IH SCH (09:55)
[2017-12-17] MEDS: PATIENT'S OWN MEDICATION (NON-FORMULARY) (Tiotropium Bromide [Spiriva Respimat] 4 GM) IH SCH (09:55)
[2017-12-17] MEDS: ACETAMINOPHEN/CAFFEINE/BUTALBITAL 1 TAB PO PRN ×2 (10:05→17:22)
--- NOTE | 2017-12-17 11:10 | PN ---
"Progress Note (short form) - Note Progress Note: Subjective: The patient was seen and examined at the bedside, she reports her pain in better controlled today Current Medications Generic Name Dose Route Start Last Admin Trade Name Mery PRN Reason Stop Dose Admin Acetaminophen 500 mg 12/10/17 19:56 12/17/17 11:06 Tylenol - PO 500 mg Q6H PRN Administration FEVER Acetaminophen/Butalbital/Caffeine 1 tablet 12/15/17 14:44 12/17/17 10:05 Fioricet - PO 1 tablet Q6H PRN Administration HEADACHE Aspirin 325 mg 12/11/17 10:00 12/17/17 09:51 Asa - PO 325 mg DAILY JAYA Administration Diazepam 5 mg 12/14/17 13:06 12/17/17 11:03 Valium - PO 5 mg TID PRN Administration ANXIETY Enoxaparin Sodium 40 mg 12/11/17 10:00 12/17/17 09:50 Lovenox - SQ 40 mg DAILY AJYA Administration Hydroxychloroquine Sulfate 200 mg 12/11/17 10:00 12/17/17 09:51 Plaquenil - PO 200 mg DAILY JAYA Administration Vancomycin HCl 1,250 mg/ 250 mls @ 166.667 mls/hr 12/15/17 14:00 12/16/17 15: 00 Dextrose IVPB 166.667 mls/hr DAILY@1400 JAYA Administration Protocol Ceftriaxone Sodium 1 gm/ 50 mls @ 100 mls/hr 12/15/17 13:15 12/17/17 09:50 Dextrose IVPB 100 mls/hr DAILY JAYA Administration Levothyroxine Sodium 25 mcg 12/11/17 06:00 12/17/17 09:51 Synthroid - PO 25 mcg DAILY JAYA Administration Methocarbamol 1,500 mg 12/12/17 14:00 12/17/17 05:51 Robaxin - PO 1,500 mg TID JAYA Administration Metoprolol Succinate 25 mg 12/11/17 10:00 12/17/17 09:51 Toprol Xl - PO 25 mg DAILY JAYA Administration Morphine Sulfate 2 mg 12/16/17 12:57 12/17/17 09:49 Morphine Sulfate IVPUSH 2 mg Q4H PRN Administration PAIN LEVEL 7 - 10 Symbicort 80/4.5 1 each 12/10/17 20:15 12/17/17 09:55 Patient's Own IH 1 each Medication (Non- DAILY JAYA Administration Formulary) Non-Formulary Medication 4 gm 12/11/17 10:00 12/17/17 09:55 Tiotropium [place] [Spiriva Respimat] IH 4 gm DAILY JAYA Administration Oxycodone HCl 5 mg 12/15/17 09:51 12/17/17 11:03 Roxicodone - PO 5 mg Q4H PRN Administration PAIN LEVEL 1-5 Pantoprazole Sodium 40 mg 12/15/17 14:45 12/17/17 09:51 Protonix - PO 40 mg DAILY JAYA Administration Sodium Chloride 1 gm 12/15/17 10:30 12/17/17 09:51 Sodium Chloride Tablet - PO 1 gm BID JAYA Administration Objective: Vital Signs Period Temp Pulse Resp BP Sys/Gallegos Pulse Ox Last 24 Hr 97.8 F-98.1 F 61-76 18-20 114-155/64-85 98 Physical Exam: General: NAD, A&Ox3 Lungs: CTA bilaterally Heart: RRR, S1S2 Abd: Soft, non-tender, non-distended. Normoactive bowel sounds Ext: Right ankle dressing, c/d/i CBCD WBC 5.5 K/mm3 (4.0-10.0) 12/14/17 07:52 RBC 3.46 M/mm3 (3.60-5.2) L 12/14/17 07:52 Hgb 11.3 GM/dL (10.7-15.3) 12/14/17 07:52 Hct 32.6 % (32.4-45.2) 12/14/17 07:52 MCV 94.3 fl (80-96) 12/14/17 07:52 MCHC 34.5 g/dl (32.0-36.0) 12/14/17 07:52 RDW 13.0 % (11.6-15.6) 12/14/17 07:52 Plt Count 311 K/MM3 (134-434) 12/14/17 07:52 MPV 7.2 fl (7.5-11.1) L 12/14/17 07:52 CMP Sodium 131 mmol/L (136-145) L 12/17/17 06:00 Potassium 4.2 mmol/L (3.5-5.1) 12/17/17 06:00 Chloride 100 mmol/L (98-107) 12/17/17 06:00 Carbon Dioxide 26 mmol/L (21-32) 12/17/17 06:00 Anion Gap 5 (8-16) L 12/17/17 06:00 BUN 16 mg/dL (7-18) 12/17/17 06:00 Creatinine 0.7 mg/dL (0.55-1.02) 12/17/17 06:00 Creat Clearance w eGFR > 60 (>60) 12/14/17 07:52 Random Glucose 77 mg/dL (74-106) 12/17/17 06:00 Calcium 8.5 mg/dL (8.5-10.1) 12/17/17 06:00 Total Bilirubin 0.6 mg/dL (0.2-1.0) D 12/14/17 07:52 AST 14 U/L (15-37) L 12/14/17 07:52 ALT 18 U/L (12-78) 12/14/17 07:52 Alkaline Phosphatase 81 U/L (45-117) 12/14/17 07:52 Total Protein 7.2 g/dl (6.4-8.2) 12/14/17 07:52 Albumin 3.2 g/dl (3.4-5.0) L 12/14/17 07:52 Microbiology 12/13/17 14:30 Foot - Right Lateral Gram Stain - Final 12/13/17 14:30 Foot - Right Lateral Wound Culture - Final S Aureus 12/10/17 11:40 Blood - Peripheral Venous Blood Culture - Final NO GROWTH AFTER 5 DAYS INCUBATION 12/10/17 11:40 Blood - Peripheral Venous Blood Culture - Final NO GROWTH AFTER 5 DAYS INCUBATION Assessment: This is a 62 year old with PMHx of HTN, scleroderma, rheumatoid arthritis, right breast cancer s/p (chemo, radiation, mastectomy) who presented to the ED with right ankle pain, warmth, redness Plan: 1) Right lateral ankle cellulitis - Wound culture MRSA - Continue Vancomycin and Ceftriaxone - Local wound care: betadine dressing change to right ankle daily - F/u MRI to r/o osteo; awaiting read - Appreciate podiatry consult 2) Acute on chronic pain - 2/2 rheumatoid arthritis - Continue Plaquenil - Continue Oxycodone - Continue Valium - Morphine 2mg IVP prn for pain 7-10 - F/u pain management consult 3) Hyponatremia - Improving - Labs consistent with SIADH - Start fluid restriction 1L daily - Salt tabs 1g BID - Appreciate nephrology consult 4) Hypothyroidism - Continue Synthroid 5) F/E/N: - Monitor electrolytes - Sodium controlled diet 6) Prophylaxis: - OOB ambulating - Lovenox 40mg sq daily 7) Dispo: - Requires continued inpatient care CODE STATUS: FULL CODE This report was requested by: Carito Mcdonald | Reference #: [id number] Patient Name: Jaja Mcdonough Date: 1955 Address: [address] [place] [address] Sex: Female Rx Written Rx Dispensed Drug Quantity Days Supply Prescriber Name 11/19/2017 11/25/2017 carisoprodol 350 mg tablet 90 30 GriseldaTee bess MD 11/19/2017 11/23/2017 oxycodone-acetaminophen 5-325 mg tablet 60 30 GriseldaTee bess MD 11/19/2017 11/23/2017 diazepam 5 mg tablet 90 30 GriseldaTee MD 10/22/2017 10/24/2017 diazepam 5 mg tablet 90 30 GriseldaTee bess MD 10/22/2017 10/24/2017 carisoprodol 350 mg tablet 90 30 GriseldaTee MD 10/22/2017 10/24/2017 oxycodone-acetaminophen 5-325 mg tab 60 30 GriseldaTee bess MD 09/22/2017 09/24/2017 diazepam 5 mg tablet 90 30 GriseldaTee bess MD 09/22/2017 09/24/2017 carisoprodol 350 mg tablet 90 30 GriseldaTee bess MD 09/22/2017 09/24/2017 oxycodone-acetaminophen 5-325 mg tab 60 30 Tee Villalobos MD Visit type - Emergency Visit Emergency Visit: Yes ED Registration Date: 12/10/17 Care time: The patient presented to the Emergency Department on the above date and was hospitalized for further evaluation of their emergent condition. - New Patient This patient is new to me today: No - Critical Care Critical Care patient: No"
--- NOTE | 2017-12-17 13:41 | PN ---
Progress Note, Physician History of Present Illness: stable pain main issues mri result noted - Current Medication List Current Medications: Active Medications Acetaminophen (Tylenol -) 500 mg PO Q6H PRN PRN Reason: FEVER Last Admin: 12/17/17 11:06 Dose: 500 mg Acetaminophen/Butalbital/Caffeine (Fioricet -) 1 tablet PO Q6H PRN PRN Reason: HEADACHE Last Admin: 12/17/17 10:05 Dose: 1 tablet Aspirin (Asa -) 325 mg PO DAILY [facility] Last Admin: 12/17/17 09:51 Dose: 325 mg Enoxaparin Sodium (Lovenox -) 40 mg SQ DAILY [facility] Last Admin: 12/17/17 09:50 Dose: 40 mg Hydroxychloroquine Sulfate (Plaquenil -) 200 mg PO DAILY [facility] Last Admin: 12/17/17 09:51 Dose: 200 mg Vancomycin HCl 1,250 mg/ (Dextrose) 250 mls @ 166.667 mls/hr IVPB DAILY@1400 JAYA PRN Reason: Protocol Last Admin: 12/16/17 15:00 Dose: 166.667 mls/hr Ceftriaxone Sodium 1 gm/ (Dextrose) 50 mls @ 100 mls/hr IVPB DAILY [facility] Last Admin: 12/17/17 09:50 Dose: 100 mls/hr Levothyroxine Sodium (Synthroid -) 25 mcg PO DAILY [facility] Last Admin: 12/17/17 09:51 Dose: 25 mcg Methocarbamol (Robaxin -) 1,500 mg PO TID [facility] Last Admin: 12/17/17 05:51 Dose: 1,500 mg Metoprolol Succinate (Toprol Xl -) 25 mg PO DAILY [facility] Last Admin: 12/17/17 09:51 Dose: 25 mg Morphine Sulfate (Morphine Sulfate) 2 mg IVPUSH Q4H PRN PRN Reason: PAIN LEVEL 7 - 10 Last Admin: 12/17/17 09:49 Dose: 2 mg Symbicort 80/4.5 Patient's Own Medication (Non- Formulary) 1 each IH DAILY [facility] Last Admin: 12/17/17 09:55 Dose: 1 each Non-Formulary Medication (Tiotropium [place] [Spiriva Respimat]) 4 gm IH DAILY [facility] Last Admin: 12/17/17 09:55 Dose: 4 gm Oxycodone HCl (Roxicodone -) 5 mg PO Q4H PRN PRN Reason: PAIN LEVEL 1-5 Last Admin: 12/17/17 11:03 Dose: 5 mg Pantoprazole Sodium (Protonix -) 40 mg PO DAILY [facility] Last Admin: 12/17/17 09:51 Dose: 40 mg Sodium Chloride (Sodium Chloride Tablet -) 1 gm PO BID [facility] Last Admin: 12/17/17 09:51 Dose: 1 gm - Objective Vital Signs: Vital Signs Temperature 98.1 F 12/17/17 06:00 Pulse Rate 65 12/17/17 06:00 Respiratory Rate 20 12/17/17 06:00 Blood Pressure 137/66 12/17/17 06:00 O2 Sat by Pulse Oximetry (%) 98 12/16/17 21:00 Constitutional: Yes: Calm, Mild Distress Cardiovascular: Yes: Regular Rate and Rhythm Respiratory: Yes: Regular, CTA Bilaterally Gastrointestinal: Yes: Normal Bowel Sounds, Soft Musculoskeletal: Yes: Other Extremities: Yes: Other Wound/Incision: Yes: Dressing Dry and Intact Neurological: Yes: Alert, Oriented Psychiatric: Yes: Alert, Oriented Labs: CBC, BMP 12/14/17 07:52 12/17/17 06:00 INR, PTT INR 1.17 (0.82-1.09) H 12/10/17 11:40 - ....Imaging MRI: Report Reviewed, Image Reviewed Assessment/Plan hyponatremia le cellulitits abscess /collection left ankle joint mrsa wound infection scleroderma hypothyrodism osteo of the rt leg plan continue abx vanco trough tomorrow will await for podiatry to do biopsy once we have that will decide genesis abx
[2017-12-17] MEDS: VANCOMYCIN 1,250 MG in DEXTROSE 5%-WATER - 250 ML IVPB SCH (14:45)
--- NOTE | 2017-12-17 17:27 | PN ---
Progress Note (short form) - Note Progress Note: Renal follow up for Hyponatremia Pt seen and examined at the bedside + diarrhea yesterday no sob, chest pain tolerating oral diet adhering to fluid restriction Vital Signs Temperature 97.6 F 12/17/17 13:46 Pulse Rate 68 12/17/17 13:46 Respiratory Rate 18 12/17/17 13:46 Blood Pressure 114/66 12/17/17 13:46 O2 Sat by Pulse Oximetry (%) 98 12/17/17 09:00 Intake & Output 12/14/17 12/15/17 12/16/17 12/17/17 23:59 23:59 23:59 23:59 Intake Total 250 1100 1250 750 Balance 250 1100 1250 750 NAD MMM No JVD neck supple No LE edema CBC, BMP 12/14/17 07:52 12/17/17 06:00 Current Medications Acetaminophen (Tylenol -) 500 mg PO Q6H PRN PRN Reason: FEVER Last Admin: 12/17/17 11:06 Dose: 500 mg Acetaminophen/Butalbital/Caffeine (Fioricet -) 1 tablet PO Q6H PRN PRN Reason: HEADACHE Last Admin: 12/17/17 17:22 Dose: 1 tablet Aspirin (Asa -) 325 mg PO DAILY [facility]A Last Admin: 12/17/17 09:51 Dose: 325 mg Diazepam (Valium -) 5 mg PO TID PRN PRN Reason: ANXIETY Last Admin: 12/17/17 17:22 Dose: 5 mg Enoxaparin Sodium (Lovenox -) 40 mg SQ DAILY [facility]A Last Admin: 12/17/17 09:50 Dose: 40 mg Hydroxychloroquine Sulfate (Plaquenil -) 200 mg PO DAILY [facility]A Last Admin: 12/17/17 09:51 Dose: 200 mg Vancomycin HCl 1,250 mg/ (Dextrose) 250 mls @ 166.667 mls/hr IVPB DAILY@1400 JAYA PRN Reason: Protocol Last Admin: 12/17/17 14:45 Dose: 166.667 mls/hr Ceftriaxone Sodium 1 gm/ (Dextrose) 50 mls @ 100 mls/hr IVPB DAILY JAYA Last Admin: 12/17/17 09:50 Dose: 100 mls/hr Levothyroxine Sodium (Synthroid -) 25 mcg PO DAILY [facility]A Last Admin: 12/17/17 09:51 Dose: 25 mcg Methocarbamol (Robaxin -) 1,500 mg PO TID [facility] Last Admin: 12/17/17 14:45 Dose: 1,500 mg Metoprolol Succinate (Toprol Xl -) 25 mg PO DAILY [facility] [place] Last Admin: 12/17/17 09:51 Dose: 25 mg Morphine Sulfate (Morphine Sulfate) 2 mg IVPUSH Q4H PRN PRN Reason: PAIN LEVEL 7 - 10 Last Admin: 12/17/17 14:44 Dose: 2 mg Symbicort 80/4.5 Patient's Own Medication (Non- Formulary) 1 each IH DAILY [facility] Last Admin: 12/17/17 09:55 Dose: 1 each Non-Formulary Medication (Tiotropium [place] [Spiriva Respimat]) 4 gm IH DAILY [facility] Last Admin: 12/17/17 09:55 Dose: 4 gm Oxycodone HCl (Roxicodone -) 5 mg PO Q4H PRN PRN Reason: PAIN LEVEL 1-5 Last Admin: 12/17/17 17:21 Dose: 5 mg Pantoprazole Sodium (Protonix -) 40 mg PO DAILY [facility] Last Admin: 12/17/17 09:51 Dose: 40 mg Sodium Chloride (Sodium Chloride Tablet -) 1 gm PO BID [facility] Last Admin: 12/17/17 09:51 Dose: 1 gm 62 year old woman with PMhx of Scleroderma, RA, Hypertension, Hypothyrodism presented with wound on her lower leg and admitted for cellulitis with hyponatremia. #Evolemic Hyponatremia secondary to suspected SIADH #LE cellulitis #Scleroderma #Hx of RA #Hypothyrodism Serum na slightly decreased today continue salt tabs and fluid restriction trend na daily Rosalio Shelley DO
--- NOTE | 2017-12-17 21:23 | PN ---
Progress Note (short form) - Note Progress Note: Patient seen in bed with a bandage on right ankle area. pain improved. vss. Tmax 97.9 mrsa, om nvsgi, +improved cellulitis according to original line drawings, + mild to moderate tenderness Om cellulitis no surgical intervention at this time. hbo consult. Continue abx as per ID. Betadine dressing change to right ankle daily. Will follow. wbc to be ordered.
[2017-12-17 22:48] LABS: BASO % 1.2 % (0-2.0); EOS % 6.3 % (0-4.5); HEMATOCRIT 33.7 % (32.4-45.2); HEMOGLOBIN 11.5 GM/dL (10.7-15.3); LYMPH % 40.2 % (8-40); MCH 32.3 pg (25.7-33.7); MCHC 34.2 g/dl (32.0-36.0); MEAN CELL VOLUME 94.4 fl (80-96); MEAN PLT VOLUME 7.2 fl (7.5-11.1); NEUT % 39.3 % (42.8-82.8); PLATELET COUNT 382 K/MM3 (134-434); RBC 3.57 M/mm3 (3.60-5.2); RDW 13.6 % (11.6-15.6); WHITE BLOOD COUNT 4.9 K/mm3 (4.0-10.0)
[2017-12-18] MEDS: ACETAMINOPHEN 500 MG TABLET (FP) PO PRN ×3 (02:55→23:39)
[2017-12-18] MEDS: oxyCODONE HCL 5 MG TABLET PO PRN ×5 (02:55→23:38)
[2017-12-18] MEDS: morphine SULFATE 4 MG/ML VIAL IVPUSH PRN ×4 (03:35→22:22)
[2017-12-18] MEDS: diazePAM 5 MG TABLET PO PRN ×4 (05:54→22:22)
[2017-12-18] MEDS: METHOCARBAMOL 500 MG TABLET PO SCH ×3 (05:54→22:21)
[2017-12-18] MEDS: ACETAMINOPHEN/CAFFEINE/BUTALBITAL 1 TAB PO PRN ×3 (05:54→20:45)
[2017-12-18 08:37] LABS: CHLORIDE 99 mmol/L (98-107); POTASSIUM 4.4 mmol/L (3.5-5.1); SODIUM 136 mmol/L (136-145)
[2017-12-18 08:41] LABS: ANION GAP 12 (8-16); BLOOD UREA NITROGEN 15 mg/dL (7-18); CALCIUM 8.9 mg/dL (8.5-10.1); CO2 25 mmol/L (21-32); CREATININE 0.6 mg/dL (0.55-1.02); GLUCOSE,RANDOM 72 mg/dL (74-106); MAGNESIUM 2.3 mg/dL (1.8-2.4); PHOSPHOROUS 3.3 mg/dL (2.5-4.9)
[2017-12-18] MEDS ORDERED: cefTRIAXone SODIUM 1 GM VIAL ONE (10:05)
[2017-12-18] MEDS ORDERED: DEXTROSE 5%-WATER - 50 ML IVPB ONE (10:06)
[2017-12-18] MEDS: PANTOPRAZOLE 40 MG TABLET (FP) PO SCH (10:11)
[2017-12-18] MEDS: LEVOTHYROXINE NA 25 MCG TABLET (FP) PO SCH (10:11)
[2017-12-18] MEDS: ENOXAPARIN NA (PORCINE) 40 MG/0.4 ML DISP.SYRIN SQ SCH (10:11)
[2017-12-18] MEDS: metoPROLOL SUCCINATE 25 MG TAB.SR.24H (FP) PO SCH (10:11)
[2017-12-18] MEDS: ASPIRIN 325 MG TABLET PO SCH (10:11)
[2017-12-18] MEDS: CEFTRIAXONE 1 GM in DEXTROSE 5%-WATER - 50 ML IVPB SCH (10:11)
[2017-12-18] MEDS: SODIUM CHLORIDE 1 GM TABLET PO SCH (10:14)
[2017-12-18] MEDS: HYDROXYCHLOROQUINE SO4 200 MG TABLET (FP) PO SCH (10:14)
[2017-12-18] MEDS: SYMBICORT IH SCH (10:16)
[2017-12-18] MEDS: PATIENT'S OWN MEDICATION (NON-FORMULARY) (Tiotropium Bromide [Spiriva Respimat] 4 GM) IH SCH (10:16)
--- NOTE | 2017-12-18 12:14 | PN ---
"Progress Note (short form) - Note Progress Note: Subjective: The patient was seen and examined at the bedside, she states she is frustrated that she is not getting her pain medication Current Medications Generic Name Dose Route Start Last Admin Trade Name Freanastasiya PRN Reason Stop Dose Admin Acetaminophen 500 mg 12/10/17 19:56 12/18/17 11:28 Tylenol - PO 500 mg Q6H PRN Administration FEVER Acetaminophen/Butalbital/Caffeine 1 tablet 12/15/17 14:44 12/18/17 11:27 Fioricet - PO 1 tablet Q6H PRN Administration HEADACHE Aspirin 325 mg 12/11/17 10:00 12/18/17 10:11 Asa - PO 325 mg DAILY JAYA Administration Diazepam 5 mg 12/17/17 16:37 12/18/17 10:11 Valium - PO 5 mg TID PRN Administration ANXIETY Enoxaparin Sodium 40 mg 12/11/17 10:00 12/18/17 10:11 Lovenox - SQ 40 mg DAILY JAYA Administration Hydroxychloroquine Sulfate 200 mg 12/11/17 10:00 12/18/17 10:14 Plaquenil - PO 200 mg DAILY JAYA Administration Vancomycin HCl 1,250 mg/ 250 mls @ 166.667 mls/hr 12/15/17 14:00 12/17/17 14: 45 Dextrose IVPB 166.667 mls/hr DAILY@1400 JAYA Administration Protocol Ceftriaxone Sodium 1 gm/ 50 mls @ 100 mls/hr 12/15/17 13:15 12/18/17 10:11 Dextrose IVPB 100 mls/hr DAILY JAYA Administration Levothyroxine Sodium 25 mcg 12/11/17 06:00 12/18/17 10:11 Synthroid - PO 25 mcg DAILY JAYA Administration Methocarbamol 1,500 mg 12/12/17 14:00 12/18/17 05:54 Robaxin - PO 1,500 mg TID JAYA Administration Metoprolol Succinate 25 mg 12/11/17 10:00 12/18/17 10:11 Toprol Xl - PO 25 mg DAILY JAYA Administration Morphine Sulfate 2 mg 12/16/17 12:57 12/18/17 10:08 Morphine Sulfate IVPUSH 2 mg Q4H PRN Administration PAIN LEVEL 7 - 10 Symbicort 80/4.5 1 each 12/10/17 20:15 12/18/17 10:16 Patient's Own IH 1 each Medication (Non- DAILY JAYA Administration Formulary) Non-Formulary Medication 4 gm 12/11/17 10:00 12/18/17 10:16 Tiotropium [place] [Spiriva Respimat] IH 4 gm DAILY JAYA Administration Oxycodone HCl 5 mg 12/15/17 09:51 12/18/17 11:27 Roxicodone - PO 5 mg Q4H PRN Administration PAIN LEVEL 1-5 Pantoprazole Sodium 40 mg 12/15/17 14:45 12/18/17 10:11 Protonix - PO 40 mg DAILY JAYA Administration Sodium Chloride 1 gm 12/15/17 10:30 12/18/17 10:14 Sodium Chloride Tablet - PO 1 gm BID JAYA Administration Objective: Vital Signs Period Temp Pulse Resp BP Sys/Gallegos Pulse Ox Last 24 Hr 97.6 F-98.6 F 55-71 18-20 114-147/58-79 97 Physical Exam: General: NAD, A&Ox3 Lungs: CTA bilaterally Heart: RRR, S1S2 Abd: Soft, non-tender, non-distended. Normoactive bowel sounds Ext: Right ankle dressing, c/d/i CBCD WBC 4.9 K/mm3 (4.0-10.0) 12/17/17 22: RBC 3.57 M/mm3 (3.60-5.2) L 12/17/17 22:30 Hgb 11.5 GM/dL (10.7-15.3) 12/17/17 22:30 Hct 33.7 % (32.4-45.2) 12/17/17 22:30 MCV 94.4 fl (80-96) 12/17/17 22:30 MCHC 34.2 g/dl (32.0-36.0) 12/17/17 22:30 RDW 13.6 % (11.6-15.6) 12/17/17 22:30 Plt Count 382 K/MM3 (134-434) D 12/17/17 22:30 MPV 7.2 fl (7.5-11.1) L 12/17/17 22:30 CMP Sodium 136 mmol/L (136-145) 12/18/17 06:00 Potassium 4.4 mmol/L (3.5-5.1) 12/18/17 06:00 Chloride 99 mmol/L (98-107) 12/18/17 06:00 Carbon Dioxide 25 mmol/L (21-32) 12/18/17 06:00 Anion Gap 12 (8-16) 12/18/17 06:00 BUN 15 mg/dL (7-18) 12/18/17 06:00 Creatinine 0.6 mg/dL (0.55-1.02) 12/18/17 06:00 Creat Clearance w eGFR > 60 (>60) 12/14/17 07:52 Random Glucose 72 mg/dL (74-106) L 12/18/17 06:00 Calcium 8.9 mg/dL (8.5-10.1) 12/18/17 06:00 Total Bilirubin 0.6 mg/dL (0.2-1.0) D 12/14/17 07:52 AST 14 U/L (15-37) L 12/14/17 07:52 ALT 18 U/L (12-78) 12/14/17 07:52 Alkaline Phosphatase 81 U/L (45-117) 12/14/17 07:52 Total Protein 7.2 g/dl (6.4-8.2) 12/14/17 07:52 Albumin 3.2 g/dl (3.4-5.0) L 12/14/17 07:52 Microbiology 12/13/17 14:30 Foot - Right Lateral Gram Stain - Final 12/13/17 14:30 Foot - Right Lateral Wound Culture - Final S Aureus 12/10/17 11:40 Blood - Peripheral Venous Blood Culture - Final NO GROWTH AFTER 5 DAYS INCUBATION 12/10/17 11:40 Blood - Peripheral Venous Blood Culture - Final NO GROWTH AFTER 5 DAYS INCUBATION Assessment: This is a 62 year old with PMHx of HTN, scleroderma, rheumatoid arthritis, right breast cancer s/p (chemo, radiation, mastectomy) who presented to the ED with right ankle pain, warmth, redness Plan: 1) Right lateral ankle cellulitis - Wound culture MRSA - Continue Vanco: dose increased today to 1500mg daily per vanco trough - Local wound care: betadine dressing change to right ankle daily - MRI consistent with osteomyelitis - Appreciate podiatry consult; no surgery at this time - F/u ID for outpatient abx recommendations 2) Acute on chronic pain - 2/2 rheumatoid arthritis - Continue Plaquenil - Continue Oxycodone - Continue Valium - Morphine 2mg IVP prn for pain 7-10 - F/u pain management consult (called office today, confirmed Dr. Harris will be seeing the patient today) 3) Hyponatremia - Resolved - Labs consistent with SIADH - Continue fluid restriction 1L daily - Salt tabs 1g BID - Appreciate nephrology consult 4) Hypothyroidism - Continue Synthroid 5) F/E/N: - Monitor electrolytes - Sodium controlled diet 6) Prophylaxis: - OOB ambulating - Lovenox 40mg sq daily 7) Dispo: - Requires continued inpatient care - Discussed with [facility] placement CODE STATUS: FULL CODE This report was requested by: Carito Mcdonald | Reference #: [id number] Patient Name: Jaja Mcdonough Date: 1955 Address: [address] [place] [address] Sex: Female Rx Written Rx Dispensed Drug Quantity Days Supply Prescriber Name 11/19/2017 11/25/2017 carisoprodol 350 mg tablet 90 30 GriseldaTee bess MD 11/19/2017 11/23/2017 oxycodone-acetaminophen 5-325 mg tablet 60 30 GriseldaTee bess MD 11/19/2017 11/23/2017 diazepam 5 mg tablet 90 30 GriseldaTee bess MD 10/22/2017 10/24/2017 diazepam 5 mg tablet 90 30 GriseldaTee bess MD 10/22/2017 10/24/2017 carisoprodol 350 mg tablet 90 30 GriseldaTee bess MD 10/22/2017 10/24/2017 oxycodone-acetaminophen 5-325 mg tab 60 30 GriseldaTee bess MD 09/22/2017 09/24/2017 diazepam 5 mg tablet 90 30 GriseldaTee bess MD 09/22/2017 09/24/2017 carisoprodol 350 mg tablet 90 30 GriseldaTee bess MD 09/22/2017 09/24/2017 oxycodone-acetaminophen 5-325 mg tab 60 30 Tee Villalobos MD Visit type - Emergency Visit Emergency Visit: Yes ED Registration Date: 12/10/17 Care time: The patient presented to the Emergency Department on the above date and was hospitalized for further evaluation of their emergent condition. - New Patient This patient is new to me today: No - Critical Care Critical Care patient: No"
--- NOTE | 2017-12-18 13:08 | PN ---
Progress Note, Physician History of Present Illness: except pain no issues podiatry note noted - Current Medication List Current Medications: Active Medications Acetaminophen (Tylenol -) 500 mg PO Q6H PRN PRN Reason: FEVER Last Admin: 12/18/17 11:28 Dose: 500 mg Acetaminophen/Butalbital/Caffeine (Fioricet -) 1 tablet PO Q6H PRN PRN Reason: HEADACHE Last Admin: 12/18/17 11:27 Dose: 1 tablet Aspirin (Asa -) 325 mg PO DAILY [facility] Last Admin: 12/18/17 10:11 Dose: 325 mg Diazepam (Valium -) 5 mg PO TID PRN PRN Reason: ANXIETY Last Admin: 12/18/17 10:11 Dose: 5 mg Enoxaparin Sodium (Lovenox -) 40 mg SQ DAILY [facility] Last Admin: 12/18/17 10:11 Dose: 40 mg Hydroxychloroquine Sulfate (Plaquenil -) 200 mg PO DAILY [facility] Last Admin: 12/18/17 10:14 Dose: 200 mg Vancomycin HCl 1,250 mg/ (Dextrose) 250 mls @ 166.667 mls/hr IVPB DAILY@1400 [facility] PRN Reason: Protocol Last Admin: 12/17/17 14:45 Dose: 166.667 mls/hr Ceftriaxone Sodium 1 gm/ (Dextrose) 50 mls @ 100 mls/hr IVPB DAILY [facility] Last Admin: 12/18/17 10:11 Dose: 100 mls/hr Levothyroxine Sodium (Synthroid -) 25 mcg PO DAILY [facility] Last Admin: 12/18/17 10:11 Dose: 25 mcg Methocarbamol (Robaxin -) 1,500 mg PO TID [facility] Last Admin: 12/18/17 05:54 Dose: 1,500 mg Metoprolol Succinate (Toprol Xl -) 25 mg PO DAILY [facility] Last Admin: 12/18/17 10:11 Dose: 25 mg Morphine Sulfate (Morphine Sulfate) 2 mg IVPUSH Q4H PRN PRN Reason: PAIN LEVEL 7 - 10 Last Admin: 12/18/17 10:08 Dose: 2 mg Symbicort 80/4.5 Patient's Own Medication (Non- Formulary) 1 each IH DAILY [facility] Last Admin: 12/18/17 10:16 Dose: 1 each Non-Formulary Medication (Tiotropium [place] [Spiriva Respimat]) 4 gm IH DAILY [facility] Last Admin: 12/18/17 10:16 Dose: 4 gm Oxycodone HCl (Roxicodone -) 5 mg PO Q4H PRN PRN Reason: PAIN LEVEL 1-5 Last Admin: 12/18/17 11:27 Dose: 5 mg Pantoprazole Sodium (Protonix -) 40 mg PO DAILY [facility] Last Admin: 12/18/17 10:11 Dose: 40 mg Sodium Chloride (Sodium Chloride Tablet -) 1 gm PO BID [facility] Last Admin: 12/18/17 10:14 Dose: 1 gm - Objective Vital Signs: Vital Signs Temperature 98.2 F 12/18/17 10:00 Pulse Rate 70 12/18/17 10:00 Respiratory Rate 20 12/18/17 10:00 Blood Pressure 137/61 12/18/17 10:00 O2 Sat by Pulse Oximetry (%) 97 12/17/17 21:00 Constitutional: Yes: No Distress, Calm Cardiovascular: Yes: Regular Rate and Rhythm Respiratory: Yes: Regular, CTA Bilaterally Gastrointestinal: Yes: Normal Bowel Sounds, Soft Musculoskeletal: Yes: Other Extremities: Yes: Other Wound/Incision: Yes: Dressing Dry and Intact Neurological: Yes: Alert, Oriented Psychiatric: Yes: Alert, Oriented Labs: CBC, BMP 12/17/17 22:30 12/18/17 06:00 INR, PTT INR 1.17 (0.82-1.09) H 12/10/17 11:40 Assessment/Plan hyponatremia le cellulitits abscess /collection left ankle joint mrsa wound infection scleroderma hypothyrodism osteo of the rt leg plan continue abx await for vanco trough if podiatry not inclined to do anythng then we can send her on 4 weeks of vanco will need cbc bmp esr and crp followed weekly and vanco trough wound care will await for todays trough so we can try to adjust the dose accordingly
[2017-12-18] MEDS: VANCOMYCIN 1,250 MG in DEXTROSE 5%-WATER - 250 ML IVPB SCH (14:40)
[2017-12-18] MEDS ORDERED: VANCOMYCIN 250 MG in DEXTROSE 5%-WATER - 250 ML IVPB ONE (14:56)
--- NOTE | 2017-12-18 16:13 | PN ---
Progress Note (short form) - Note Progress Note: Renal follow up for Hyponatremia Pt seen and examined at the bedside no acute complaints Vital Signs Temperature 98.2 F 12/18/17 13:31 Pulse Rate 68 12/18/17 13:31 Respiratory Rate 20 12/18/17 13:31 Blood Pressure 122/65 12/18/17 13:31 O2 Sat by Pulse Oximetry (%) 97 12/17/17 21:00 Intake & Output 12/15/17 12/16/17 12/17/17 12/18/17 23:59 23:59 23:59 23:59 Intake Total 1100 1250 850 300 Balance 1100 1250 850 300 NAD MMM No JVD neck supple No LE edema CBC, BMP 12/17/17 22:30 12/18/17 06:00 Current Medications Acetaminophen (Tylenol -) 500 mg PO Q6H PRN PRN Reason: FEVER Last Admin: 12/18/17 11:28 Dose: 500 mg Acetaminophen/Butalbital/Caffeine (Fioricet -) 1 tablet PO Q6H PRN PRN Reason: HEADACHE Last Admin: 12/18/17 11:27 Dose: 1 tablet Aspirin (Asa -) 325 mg PO DAILY [facility] Last Admin: 12/18/17 10:11 Dose: 325 mg Diazepam (Valium -) 5 mg PO TID PRN PRN Reason: ANXIETY Last Admin: 12/18/17 14:36 Dose: 5 mg Enoxaparin Sodium (Lovenox -) 40 mg SQ DAILY [facility] Last Admin: 12/18/17 10:11 Dose: 40 mg Hydroxychloroquine Sulfate (Plaquenil -) 200 mg PO DAILY [facility] Last Admin: 12/18/17 10:14 Dose: 200 mg Ceftriaxone Sodium 1 gm/ (Dextrose) 50 mls @ 100 mls/hr IVPB DAILY [facility] Last Admin: 12/18/17 10:11 Dose: 100 mls/hr Vancomycin HCl 1,500 mg/ (Dextrose) 500 mls @ 250 mls/hr IVPB DAILY@1400 [facility] PRN Reason: Protocol Levothyroxine Sodium (Synthroid -) 25 mcg PO DAILY [facility] Last Admin: 12/18/17 10:11 Dose: 25 mcg Methocarbamol (Robaxin -) 1,500 mg PO TID [facility] Last Admin: 12/18/17 14:40 Dose: 1,500 mg Metoprolol Succinate (Toprol Xl -) 25 mg PO DAILY [facility] Last Admin: 12/18/17 10:11 Dose: 25 mg Morphine Sulfate (Morphine Sulfate) 2 mg IVPUSH Q4H PRN PRN Reason: PAIN LEVEL 7 - 10 Last Admin: 12/18/17 14:35 Dose: 2 mg Symbicort 80/4.5 Patient's Own Medication (Non- Formulary) 1 each IH DAILY [facility] Last Admin: 12/18/17 10:16 Dose: 1 each Non-Formulary Medication (Tiotropium [place] [Spiriva Respimat]) 4 gm IH DAILY [facility] Last Admin: 12/18/17 10:16 Dose: 4 gm Oxycodone HCl (Roxicodone -) 5 mg PO Q4H PRN PRN Reason: PAIN LEVEL 1-5 Last Admin: 12/18/17 14:36 Dose: 5 mg Pantoprazole Sodium (Protonix -) 40 mg PO DAILY [facility] Last Admin: 12/18/17 10:11 Dose: 40 mg Sodium Chloride (Sodium Chloride Tablet -) 1 gm PO DAILY [facility] 62 year old woman with PMhx of Scleroderma, RA, Hypertension, Hypothyrodism presented with wound on her lower leg and admitted for cellulitis with hyponatremia. 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
[2017-12-18] MEDS ORDERED: PT OWN MED DRAWER 7, Y5N ONE (21:07)
[2017-12-19] MEDS: ACETAMINOPHEN/CAFFEINE/BUTALBITAL 1 TAB PO PRN ×3 (05:08→17:59)
[2017-12-19] MEDS: morphine SULFATE 4 MG/ML VIAL IVPUSH PRN ×4 (05:09→21:56)
[2017-12-19] MEDS ORDERED: PT OWN MED DRAWER 7, Y5N ONE ×2 (05:22→20:47)
[2017-12-19] MEDS: diazePAM 5 MG TABLET PO PRN ×3 (06:27→21:56)
[2017-12-19] MEDS: oxyCODONE HCL 5 MG TABLET PO PRN ×5 (06:27→21:56)
[2017-12-19] MEDS: METHOCARBAMOL 500 MG TABLET PO SCH ×3 (06:27→21:57)
[2017-12-19 08:28] LABS: ANION GAP 9 (8-16); BLOOD UREA NITROGEN 17 mg/dL (7-18); CALCIUM 8.6 mg/dL (8.5-10.1); CHLORIDE 98 mmol/L (98-107); CO2 26 mmol/L (21-32); GLUCOSE,RANDOM 79 mg/dL (74-106); POTASSIUM 4.5 mmol/L (3.5-5.1); SODIUM 133 mmol/L (136-145)
[2017-12-19 08:30] LABS: CREATININE 0.7 mg/dL (0.55-1.02)
[2017-12-19] MEDS ORDERED: DEXTROSE 5%-WATER - 50 ML IVPB ONE (09:58)
[2017-12-19] MEDS ORDERED: cefTRIAXone SODIUM 1 GM VIAL ONE (09:58)
[2017-12-19] MEDS: CEFTRIAXONE 1 GM in DEXTROSE 5%-WATER - 50 ML IVPB SCH (10:01)
[2017-12-19] MEDS: PANTOPRAZOLE 40 MG TABLET (FP) PO SCH (10:01)
[2017-12-19] MEDS: ASPIRIN 325 MG TABLET PO SCH (10:01)
[2017-12-19] MEDS: LEVOTHYROXINE NA 25 MCG TABLET (FP) PO SCH (10:01)
[2017-12-19] MEDS: metoPROLOL SUCCINATE 25 MG TAB.SR.24H (FP) PO SCH (10:02)
[2017-12-19] MEDS: ENOXAPARIN NA (PORCINE) 40 MG/0.4 ML DISP.SYRIN SQ SCH (10:02)
[2017-12-19] MEDS: HYDROXYCHLOROQUINE SO4 200 MG TABLET (FP) PO SCH (10:04)
[2017-12-19] MEDS: SODIUM CHLORIDE 1 GM TABLET PO SCH (10:05)
[2017-12-19] MEDS: PATIENT'S OWN MEDICATION (NON-FORMULARY) (Tiotropium Bromide [Spiriva Respimat] 4 GM) IH SCH (10:07)
[2017-12-19] MEDS: SYMBICORT IH SCH (10:07)
--- NOTE | 2017-12-19 10:17 | PN ---
Progress Note (short form) - Note Progress Note: Patient seen at bedside bandage on right ankle. Pain has slightly improved. temp 97.6 wbc 4.9 =improved cellulitis according to the original line drawn.mild to moderate tenderness om cellulitis Betadine with dsd applied Continue antibiotics Dr corrales will follow
--- NOTE | 2017-12-19 12:31 | PN ---
"Progress Note (short form) - Note Progress Note: Subjective: The patient was seen and examined at the bedside, she reports feeling good today Current Medications Generic Name Dose Route Start Last Admin Trade Name Pierreq PRN Reason Stop Dose Admin Acetaminophen 500 mg 12/10/17 19:56 12/18/17 23:39 Tylenol - PO 500 mg Q6H PRN Administration FEVER Acetaminophen/Butalbital/Caffeine 1 tablet 12/15/17 14:44 12/19/17 11:49 Fioricet - PO 1 tablet Q6H PRN Administration HEADACHE Aspirin 325 mg 12/11/17 10:00 12/19/17 10:01 Asa - PO 325 mg DAILY [facility] Administration Diazepam 5 mg 12/17/17 16:37 12/19/17 11:49 Valium - PO 5 mg TID PRN Administration ANXIETY Enoxaparin Sodium 40 mg 12/11/17 10:00 12/19/17 10:02 Lovenox - SQ 40 mg DAILY [facility] Administration Hydroxychloroquine Sulfate 200 mg 12/11/17 10:00 12/19/17 10:04 Plaquenil - PO 200 mg DAILY [facility] Administration Ceftriaxone Sodium 1 gm/ 50 mls @ 100 mls/hr 12/15/17 13:15 12/19/17 10:01 Dextrose IVPB 100 mls/hr DAILY [facility] Administration Vancomycin HCl 1,500 mg/ 500 mls @ 250 mls/hr 12/19/17 14:00 Dextrose IVPB DAILY@1400 [facility] Protocol Levothyroxine Sodium 25 mcg 12/11/17 06:00 12/19/17 10:01 Synthroid - PO 25 mcg DAILY [facility] Administration Methocarbamol 1,500 mg 12/12/17 14:00 12/19/17 06:27 Robaxin - PO 1,500 mg TID [facility] Administration Metoprolol Succinate 25 mg 12/11/17 10:00 12/19/17 10:02 Toprol Xl - PO 25 mg DAILY [facility] Administration Morphine Sulfate 2 mg 12/16/17 12:57 12/19/17 10:02 Morphine Sulfate IVPUSH 2 mg Q4H PRN Administration PAIN LEVEL 7 - 10 Symbicort 80/4.5 1 each 12/10/17 20:15 12/19/17 10:07 Patient's Own IH 1 each Medication (Non- DAILY [facility] Administration Formulary) Non-Formulary Medication 4 gm 12/11/17 10:00 12/19/17 10:07 Tiotropium [place] [Spiriva Respimat] IH 4 gm DAILY [facility] Administration Oxycodone HCl 5 mg 12/15/17 09:51 12/19/17 10:02 Roxicodone - PO 5 mg Q4H PRN Administration PAIN LEVEL 1-5 Pantoprazole Sodium 40 mg 12/15/17 14:45 12/19/17 10:01 Protonix - PO 40 mg DAILY [facility] Administration Sodium Chloride 1 gm 12/19/17 10:00 12/19/17 10:05 Sodium Chloride Tablet - PO 1 gm DAILY [facility] Administration Objective: Vital Signs Period Temp Pulse Resp BP Sys/Gallegos Pulse Ox Last 24 Hr 97.6 F-98.6 F 61-75 18-20 122-149/65-79 97 Physical Exam: General: NAD, A&Ox3 Lungs: CTA bilaterally Heart: RRR, S1S2 Abd: Soft, non-tender, non-distended. Normoactive bowel sounds Ext: Right ankle dressing, c/d/i CBCD WBC 4.9 K/mm3 (4.0-10.0) 12/17/17 22:30 RBC 3.57 M/mm3 (3.60-5.2) L 12/17/17 22:30 Hgb 11.5 GM/dL (10.7-15.3) 12/17/17 22:30 Hct 33.7 % (32.4-45.2) 12/17/17 22:30 MCV 94.4 fl (80-96) 12/17/17 22:30 MCHC 34.2 g/dl (32.0-36.0) 12/17/17 22:30 RDW 13.6 % (11.6-15.6) 12/17/17 22:30 Plt Count 382 K/MM3 (134-434) D 12/17/17 22:30 MPV 7.2 fl (7.5-11.1) L 12/17/17 22:30 CMP Sodium 133 mmol/L (136-145) L 12/19/17 07:00 Potassium 4.5 mmol/L (3.5-5.1) 12/19/17 07:00 Chloride 98 mmol/L (98-107) 12/19/17 07:00 Carbon Dioxide 26 mmol/L (21-32) 12/19/17 07:00 Anion Gap 9 (8-16) 12/19/17 07:00 BUN 17 mg/dL (7-18) 12/19/17 07:00 Creatinine 0.7 mg/dL (0.55-1.02) 12/19/17 07:00 Creat Clearance w eGFR > 60 (>60) 12/14/17 07:52 Random Glucose 79 mg/dL (74-106) 12/19/17 07:00 Calcium 8.6 mg/dL (8.5-10.1) 12/19/17 07:00 Total Bilirubin 0.6 mg/dL (0.2-1.0) D 12/14/17 07:52 AST 14 U/L (15-37) L 12/14/17 07:52 ALT 18 U/L (12-78) 12/14/17 07:52 Alkaline Phosphatase 81 U/L (45-117) 12/14/17 07:52 Total Protein 7.2 g/dl (6.4-8.2) 12/14/17 07:52 Albumin 3.2 g/dl (3.4-5.0) L 12/14/17 07:52 Microbiology 12/13/17 14:30 Foot - Right Lateral Gram Stain - Final 12/13/17 14:30 Foot - Right Lateral Wound Culture - Final S Aureus 12/10/17 11:40 Blood - Peripheral Venous Blood Culture - Final NO GROWTH AFTER 5 DAYS INCUBATION 12/10/17 11:40 Blood - Peripheral Venous Blood Culture - Final NO GROWTH AFTER 5 DAYS INCUBATION Assessment: This is a 62 year old with PMHx of HTN, scleroderma, rheumatoid arthritis, right breast cancer s/p (chemo, radiation, mastectomy) who presented to the ED with right ankle pain, warmth, redness Plan: 1) Right lateral ankle cellulitis - Wound culture MRSA - Continue Vanco 1500mg IVPB daily - Local wound care: betadine dressing change to right ankle daily - MRI consistent with osteomyelitis - Appreciate podiatry consult; no surgery at this time - Will need hyperbaric oxygen as outpatient - F/u ID for outpatient abx recommendations 2) Acute on chronic pain - 2/2 rheumatoid arthritis - Continue Plaquenil - Continue Oxycodone - Continue Valium - Morphine 2mg IVP prn for pain 7-10 - F/u pain management consult (called office today, confirmed Dr. Harris will be seeing the patient today) 3) Hyponatremia - Labs consistent with SIADH - Continue fluid restriction 1L daily - Salt tabs 1g BID - Appreciate nephrology consult 4) Hypothyroidism - Continue Synthroid 5) F/E/N: - Monitor electrolytes - Sodium controlled diet 6) Prophylaxis: - OOB ambulating - Lovenox 40mg sq daily 7) Dispo: - Requires continued inpatient care - Discussed with [facility] placement CODE STATUS: FULL CODE This report was requested by: Carito Mcdonald | Reference #: [id number] Patient Name: Jaja Mcdonough Date: 1955 Address: [address] [place] [address] Sex: Female Rx Written Rx Dispensed Drug Quantity Days Supply Prescriber Name 11/19/2017 11/25/2017 carisoprodol 350 mg tablet 90 30 GriseldaTee bess MD 11/19/2017 11/23/2017 oxycodone-acetaminophen 5-325 mg tablet 60 30 GriseldaTee bess MD 11/19/2017 11/23/2017 diazepam 5 mg tablet 90 30 GriseldaTee vu MD 10/22/2017 10/24/2017 diazepam 5 mg tablet 90 30 GriseldaTee bess MD 10/22/2017 10/24/2017 carisoprodol 350 mg tablet 90 30 GriseldaTee vu MD 10/22/2017 10/24/2017 oxycodone-acetaminophen 5-325 mg tab 60 30 GriseldaTee bess MD 09/22/2017 09/24/2017 diazepam 5 mg tablet 90 30 GriseldaTee bess MD 09/22/2017 09/24/2017 carisoprodol 350 mg tablet 90 30 Tee Villalobos MD 09/22/2017 09/24/2017 oxycodone-acetaminophen 5-325 mg tab 60 30 Tee Villalobos MD Visit type - Emergency Visit Emergency Visit: Yes ED Registration Date: 12/10/17 Care time: The patient presented to the Emergency Department on the above date and was hospitalized for further evaluation of their emergent condition. - New Patient This patient is new to me today: No - Critical Care Critical Care patient: No"
--- NOTE | 2017-12-19 12:52 | PN ---
Progress Note, Physician History of Present Illness: Pt seen and examined. Events, notes/labs/imaging reviewed. She states she feels well. Tolerating pain. No specific complaints. - Current Medication List Current Medications: Active Medications Acetaminophen (Tylenol -) 500 mg PO Q6H PRN PRN Reason: FEVER Last Admin: 12/18/17 23:39 Dose: 500 mg Acetaminophen/Butalbital/Caffeine (Fioricet -) 1 tablet PO Q6H PRN PRN Reason: HEADACHE Last Admin: 12/19/17 11:49 Dose: 1 tablet Aspirin (Asa -) 325 mg PO DAILY [facility] Last Admin: 12/19/17 10:01 Dose: 325 mg Diazepam (Valium -) 5 mg PO TID PRN PRN Reason: ANXIETY Last Admin: 12/19/17 11:49 Dose: 5 mg Enoxaparin Sodium (Lovenox -) 40 mg SQ DAILY [facility] Last Admin: 12/19/17 10:02 Dose: 40 mg Hydroxychloroquine Sulfate (Plaquenil -) 200 mg PO DAILY [facility] Last Admin: 12/19/17 10:04 Dose: 200 mg Ceftriaxone Sodium 1 gm/ (Dextrose) 50 mls @ 100 mls/hr IVPB DAILY [facility] Last Admin: 12/19/17 10:01 Dose: 100 mls/hr Vancomycin HCl 1,500 mg/ (Dextrose) 500 mls @ 250 mls/hr IVPB DAILY@1400 [facility] PRN Reason: Protocol Levothyroxine Sodium (Synthroid -) 25 mcg PO DAILY [facility] Last Admin: 12/19/17 10:01 Dose: 25 mcg Methocarbamol (Robaxin -) 1,500 mg PO TID [facility] Last Admin: 12/19/17 06:27 Dose: 1,500 mg Metoprolol Succinate (Toprol Xl -) 25 mg PO DAILY [facility] Last Admin: 12/19/17 10:02 Dose: 25 mg Morphine Sulfate (Morphine Sulfate) 2 mg IVPUSH Q4H PRN PRN Reason: PAIN LEVEL 7 - 10 Last Admin: 12/19/17 10:02 Dose: 2 mg Symbicort 80/4.5 Patient's Own Medication (Non- Formulary) 1 each IH DAILY [facility] Last Admin: 12/19/17 10:07 Dose: 1 each Non-Formulary Medication (Tiotropium [place] [Spiriva Respimat]) 4 gm IH DAILY [facility] Last Admin: 12/19/17 10:07 Dose: 4 gm Oxycodone HCl (Roxicodone -) 5 mg PO Q4H PRN PRN Reason: PAIN LEVEL 1-5 Last Admin: 12/19/17 10:02 Dose: 5 mg Pantoprazole Sodium (Protonix -) 40 mg PO DAILY [facility] Last Admin: 12/19/17 10:01 Dose: 40 mg Sodium Chloride (Sodium Chloride Tablet -) 1 gm PO DAILY [facility] Last Admin: 12/19/17 10:05 Dose: 1 gm - Objective Vital Signs: Vital Signs Temperature 98.6 F 12/19/17 10:00 Pulse Rate 75 12/19/17 10:00 Respiratory Rate 20 12/19/17 10:00 Blood Pressure 149/71 12/19/17 10:00 O2 Sat by Pulse Oximetry (%) 97 12/18/17 21:00 Constitutional: Yes: No Distress, Calm Cardiovascular: Yes: Regular Rate and Rhythm Respiratory: Yes: CTA Bilaterally Gastrointestinal: Yes: Normal Bowel Sounds, Soft Genitourinary: Yes: WNL Wound/Incision: Yes: Dressing Dry and Intact (Rt ankle dressing) Neurological: Yes: Alert, Oriented Labs: CBC, BMP 12/17/17 22:30 12/19/17 07:00 INR, PTT INR 1.17 (0.82-1.09) H 12/10/17 11:40 Microbiology 12/13/17 14:30 Foot - Right Lateral Gram Stain - Final 12/13/17 14:30 Foot - Right Lateral Wound Culture - Final Mr S Aureus 12/10/17 11:40 Blood - Peripheral Venous Blood Culture - Final NO GROWTH AFTER 5 DAYS INCUBATION 12/10/17 11:40 Blood - Peripheral Venous Blood Culture - Final NO GROWTH AFTER 5 DAYS INCUBATION - ....Imaging MRI: Report Reviewed (Rt lat malleolar marrow edema c/w OM) Problem List - Problems (1) Cellulitis of right anterior lower leg Code(s): L03.115 - CELLULITIS OF RIGHT LOWER LIMB Assessment/Plan 62 y.o. female with with PMH of scleroderma, rheumatoid arthritis, right breast cancer s/p (chemo, radiation, mastectomy) and HTN presenting with Rt ankle swelling and pain RLE cellulitis Ankle abscess/collection +MRSA Rt lateral malleolar OM -- continue current antibiotics, Vancomycin dose adjusted -- monitor renal function, esr trend, vancomycin level -- continue wound care pt currently stable
[2017-12-19] MEDS: VANCOMYCIN 1,500 MG in DEXTROSE 5%-WATER - 500 ML IVPB SCH (14:05)
[2017-12-19] MEDS: ACETAMINOPHEN 500 MG TABLET (FP) PO PRN ×2 (14:06→21:55)
--- NOTE | 2017-12-19 18:03 | PN ---
Progress Note (short form) - Note Progress Note: 62 year old woman with PMhx of Scleroderma, RA, Hypertension, Hypothyrodism wound on her lower leg admitted for cellulitis hyponatremia. Current Medications Acetaminophen (Tylenol -) 500 mg PO Q6H PRN PRN Reason: FEVER Last Admin: 12/19/17 14:06 Dose: 500 mg Acetaminophen/Butalbital/Caffeine (Fioricet -) 1 tablet PO Q6H PRN PRN Reason: HEADACHE Last Admin: 12/19/17 17:59 Dose: 1 tablet Aspirin (Asa -) 325 mg PO DAILY [facility] Last Admin: 12/19/17 10:01 Dose: 325 mg Diazepam (Valium -) 5 mg PO TID PRN PRN Reason: ANXIETY Last Admin: 12/19/17 11:49 Dose: 5 mg Enoxaparin Sodium (Lovenox -) 40 mg SQ DAILY [facility] Last Admin: 12/19/17 10:02 Dose: 40 mg Hydroxychloroquine Sulfate (Plaquenil -) 200 mg PO DAILY [facility] Last Admin: 12/19/17 10:04 Dose: 200 mg Ceftriaxone Sodium 1 gm/ (Dextrose) 50 mls @ 100 mls/hr IVPB DAILY [facility] Last Admin: 12/19/17 10:01 Dose: 100 mls/hr Vancomycin HCl 1,500 mg/ (Dextrose) 500 mls @ 250 mls/hr IVPB DAILY@1400 [facility] PRN Reason: Protocol Last Admin: 12/19/17 14:05 Dose: 250 mls/hr Levothyroxine Sodium (Synthroid -) 25 mcg PO DAILY [facility] Last Admin: 12/19/17 10:01 Dose: 25 mcg Methocarbamol (Robaxin -) 1,500 mg PO TID [facility] Last Admin: 12/19/17 14:05 Dose: 1,500 mg Metoprolol Succinate (Toprol Xl -) 25 mg PO DAILY [facility] Last Admin: 12/19/17 10:02 Dose: 25 mg Morphine Sulfate (Morphine Sulfate) 2 mg IVPUSH Q4H PRN PRN Reason: PAIN LEVEL 7 - 10 Last Admin: 12/19/17 18:00 Dose: 2 mg Symbicort 80/4.5 Patient's Own Medication (Non- Formulary) 1 each IH DAILY [facility] Last Admin: 12/19/17 10:07 Dose: 1 each Non-Formulary Medication (Tiotropium [place] [Spiriva Respimat]) 4 gm IH DAILY [facility] Last Admin: 12/19/17 10:07 Dose: 4 gm Oxycodone HCl (Roxicodone -) 5 mg PO Q4H PRN PRN Reason: PAIN LEVEL 1-5 Last Admin: 12/19/17 18:00 Dose: 5 mg Pantoprazole Sodium (Protonix -) 40 mg PO DAILY [facility] Last Admin: 12/19/17 10:01 Dose: 40 mg Sodium Chloride (Sodium Chloride Tablet -) 1 gm PO DAILY [facility] Last Admin: 12/19/17 10:05 Dose: 1 gm Last Vital Signs Temp Pulse Resp BP Pulse Ox 98.6 F 75 20 149/71 98 12/19/17 10:00 12/19/17 10:00 12/19/17 10:00 12/19/17 10:00 12/19/17 09:00 CBC, BMP 12/17/17 22:30 12/19/17 07:00 IMP Hyponatremia/idopathic SIADH #LE cellulitis #Scleroderma #Hx of RA #Hypothyrodism monitor lytes periodically
[2017-12-20] MEDS: ACETAMINOPHEN/CAFFEINE/BUTALBITAL 1 TAB PO PRN ×3 (01:07→17:10)
[2017-12-20] MEDS: morphine SULFATE 4 MG/ML VIAL IVPUSH PRN ×6 (02:04→23:03)
[2017-12-20] MEDS: oxyCODONE HCL 5 MG TABLET PO PRN ×6 (02:04→21:30)
[2017-12-20] MEDS: diazePAM 5 MG TABLET PO PRN ×3 (06:06→23:03)
[2017-12-20] MEDS: METHOCARBAMOL 500 MG TABLET PO SCH ×3 (06:06→21:30)
[2017-12-20 09:01] LABS: BLOOD UREA NITROGEN 15 mg/dL (7-18); CALCIUM 8.6 mg/dL (8.5-10.1); CO2 24 mmol/L (21-32); CREATININE 0.7 mg/dL (0.55-1.02); GLUCOSE,RANDOM 76 mg/dL (74-106)
[2017-12-20 09:06] LABS: ANION GAP 9 (8-16); CHLORIDE 99 mmol/L (98-107); POTASSIUM 4.6 mmol/L (3.5-5.1); SODIUM 132 mmol/L (136-145)
[2017-12-20] MEDS ORDERED: cefTRIAXone SODIUM 1 GM VIAL ONE (09:46)
[2017-12-20] MEDS ORDERED: DEXTROSE 5%-WATER - 50 ML IVPB ONE (09:46)
[2017-12-20] MEDS: PANTOPRAZOLE 40 MG TABLET (FP) PO SCH (10:13)
[2017-12-20] MEDS: ENOXAPARIN NA (PORCINE) 40 MG/0.4 ML DISP.SYRIN SQ SCH (10:13)
[2017-12-20] MEDS: ASPIRIN 325 MG TABLET PO SCH (10:13)
[2017-12-20] MEDS: metoPROLOL SUCCINATE 25 MG TAB.SR.24H (FP) PO SCH (10:13)
[2017-12-20] MEDS: LEVOTHYROXINE NA 25 MCG TABLET (FP) PO SCH (10:13)
[2017-12-20] MEDS: SYMBICORT IH SCH (10:13)
[2017-12-20] MEDS: PATIENT'S OWN MEDICATION (NON-FORMULARY) (Tiotropium Bromide [Spiriva Respimat] 4 GM) IH SCH (10:13)
[2017-12-20] MEDS: ACETAMINOPHEN 500 MG TABLET (FP) PO PRN ×2 (10:14→21:30)
[2017-12-20] MEDS: CEFTRIAXONE 1 GM in DEXTROSE 5%-WATER - 50 ML IVPB SCH (10:15)
[2017-12-20] MEDS: SODIUM CHLORIDE 1 GM TABLET PO SCH (10:16)
[2017-12-20] MEDS: HYDROXYCHLOROQUINE SO4 200 MG TABLET (FP) PO SCH (10:17)
--- NOTE | 2017-12-20 13:29 | PN ---
Progress Note, Physician Chief Complaint: patient is complaining of pain and feeling anxious - Current Medication List Current Medications: Active Medications Acetaminophen (Tylenol -) 500 mg PO Q6H PRN PRN Reason: FEVER Last Admin: 12/20/17 10:14 Dose: 500 mg Acetaminophen/Butalbital/Caffeine (Fioricet -) 1 tablet PO Q6H PRN PRN Reason: HEADACHE Last Admin: 12/20/17 10:48 Dose: 1 tablet Aspirin (Asa -) 325 mg PO DAILY [facility] Last Admin: 12/20/17 10:13 Dose: 325 mg Diazepam (Valium -) 5 mg PO TID PRN PRN Reason: ANXIETY Last Admin: 12/20/17 06:06 Dose: 5 mg Enoxaparin Sodium (Lovenox -) 40 mg SQ DAILY [facility] Last Admin: 12/20/17 10:13 Dose: 40 mg Hydroxychloroquine Sulfate (Plaquenil -) 200 mg PO DAILY [facility] Last Admin: 12/20/17 10:17 Dose: 200 mg Ceftriaxone Sodium 1 gm/ (Dextrose) 50 mls @ 100 mls/hr IVPB DAILY [facility] Last Admin: 12/20/17 10:15 Dose: 100 mls/hr Vancomycin HCl 1,500 mg/ (Dextrose) 500 mls @ 250 mls/hr IVPB DAILY@1400 [facility] PRN Reason: Protocol Last Admin: 12/19/17 14:05 Dose: 250 mls/hr Levothyroxine Sodium (Synthroid -) 25 mcg PO DAILY [facility] Last Admin: 12/20/17 10:13 Dose: 25 mcg Methocarbamol (Robaxin -) 1,500 mg PO TID [facility] Last Admin: 12/20/17 06:06 Dose: 1,500 mg Metoprolol Succinate (Toprol Xl -) 25 mg PO DAILY [facility] Last Admin: 12/20/17 10:13 Dose: 25 mg Morphine Sulfate (Morphine Sulfate) 2 mg IVPUSH Q4H PRN PRN Reason: PAIN LEVEL 7 - 10 Last Admin: 12/20/17 10:48 Dose: 2 mg Symbicort 80/4.5 Patient's Own Medication (Non- Formulary) 1 each IH DAILY [facility] Last Admin: 12/20/17 10:13 Dose: 1 each Non-Formulary Medication (Tiotropium [place] [Spiriva Respimat]) 4 gm IH DAILY [facility] Last Admin: 12/20/17 10:13 Dose: 4 gm Oxycodone HCl (Roxicodone -) 5 mg PO Q4H PRN PRN Reason: PAIN LEVEL 1-5 Last Admin: 12/20/17 10:13 Dose: 5 mg Pantoprazole Sodium (Protonix -) 40 mg PO DAILY [facility] Last Admin: 12/20/17 10:13 Dose: 40 mg Sodium Chloride (Sodium Chloride Tablet -) 1 gm PO DAILY [facility] Last Admin: 12/20/17 10:16 Dose: 1 gm - Objective Vital Signs: Vital Signs Temperature 98.1 F 12/20/17 06:30 Pulse Rate 62 12/20/17 06:30 Respiratory Rate 18 12/20/17 06:30 Blood Pressure 121/70 12/20/17 06:30 O2 Sat by Pulse Oximetry (%) 96 12/19/17 21:00 Constitutional: Yes: Well Nourished, No Distress, Calm, Anxious Eyes: Yes: WNL, Conjunctiva Clear HENT: Yes: WNL, Atraumatic Neck: Yes: WNL, Supple, Trachea Midline Cardiovascular: Yes: WNL, Regular Rate and Rhythm Respiratory: Yes: WNL, Regular, CTA Bilaterally Gastrointestinal: Yes: WNL, Normal Bowel Sounds, Soft Edema: LLE: Trace, RLE: Trace Integumentary: Yes: WNL Neurological: Yes: WNL, Alert, Oriented ...Motor Strength: WNL Psychiatric: Yes: WNL, Alert, Oriented, Agitated Labs: CBC, BMP 12/17/17 22:30 12/20/17 06:45 INR, PTT INR 1.17 (0.82-1.09) H 12/10/17 11:40 Problem List - Problems (1) MRSA (methicillin resistant staph aureus) culture positive Assessment/Plan: Wound culture MRSA - Continue Vanco 1500mg IVPB daily - Local wound care: betadine dressing change to right ankle daily - MRI consistent with osteomyelitis - Appreciate podiatry consult; no surgery at this time - Will need hyperbaric oxygen as outpatient - F/u ID for outpatient abx recommendations Code(s): Z22.322 - CARRIER OR SUSPECTED CARRIER OF METHICILLIN RESIS STAPH (2) Chronic pain Assessment/Plan: 2/2 rheumatoid arthritis - Continue Plaquenil - Continue Oxycodone - Continue Valium - Morphine 2mg IVP prn for pain 7-10 - F/u pain management consult (called office today, confirmed Dr. Harris will be seeing the patient today) Code(s): G89.29 - OTHER CHRONIC PAIN (3) Hyponatremia Assessment/Plan: - Labs consistent with SIADH - Continue fluid restriction 1L daily - stop the NaCl tablets until the TSH level is obtained to evaluate hypothyroidism induced hyponatermia - Appreciate nephrology consult Code(s): E87.1 - HYPO-OSMOLALITY AND HYPONATREMIA (4) Hypothyroidism Assessment/Plan: obtain TSH c/w levothyroxine Code(s): E03.9 - HYPOTHYROIDISM, UNSPECIFIED (5) DVT prophylaxis Assessment/Plan: sub-q heparin Code(s): [id number] -
[2017-12-20] MEDS: VANCOMYCIN 1,500 MG in DEXTROSE 5%-WATER - 500 ML IVPB SCH (13:57)
--- NOTE | 2017-12-20 15:51 | PN ---
Progress Note, Physician History of Present Illness: Pt has no new complaint. States she feels the same. Has pain but ambulating. Remains afebrile. - Current Medication List Current Medications: Active Medications Acetaminophen (Tylenol -) 500 mg PO Q6H PRN PRN Reason: FEVER Last Admin: 12/20/17 10:14 Dose: 500 mg Acetaminophen/Butalbital/Caffeine (Fioricet -) 1 tablet PO Q6H PRN PRN Reason: HEADACHE Last Admin: 12/20/17 10:48 Dose: 1 tablet Aspirin (Asa -) 325 mg PO DAILY [facility] Last Admin: 12/20/17 10:13 Dose: 325 mg Diazepam (Valium -) 5 mg PO TID PRN PRN Reason: ANXIETY Last Admin: 12/20/17 13:49 Dose: 5 mg Enoxaparin Sodium (Lovenox -) 40 mg SQ DAILY [facility] Last Admin: 12/20/17 10:13 Dose: 40 mg Hydroxychloroquine Sulfate (Plaquenil -) 200 mg PO DAILY [facility] Last Admin: 12/20/17 10:17 Dose: 200 mg Ceftriaxone Sodium 1 gm/ (Dextrose) 50 mls @ 100 mls/hr IVPB DAILY [facility] Last Admin: 12/20/17 10:15 Dose: 100 mls/hr Vancomycin HCl 1,500 mg/ (Dextrose) 500 mls @ 250 mls/hr IVPB DAILY@1400 [facility] PRN Reason: Protocol Last Admin: 12/20/17 13:57 Dose: 250 mls/hr Levothyroxine Sodium (Synthroid -) 25 mcg PO DAILY [facility] Last Admin: 12/20/17 10:13 Dose: 25 mcg Methocarbamol (Robaxin -) 1,500 mg PO TID [facility] Last Admin: 12/20/17 14:49 Dose: 1,500 mg Metoprolol Succinate (Toprol Xl -) 25 mg PO DAILY [facility] Last Admin: 12/20/17 10:13 Dose: 25 mg Morphine Sulfate (Morphine Sulfate) 2 mg IVPUSH Q4H PRN PRN Reason: PAIN LEVEL 7 - 10 Last Admin: 12/20/17 14:35 Dose: 2 mg Symbicort 80/4.5 Patient's Own Medication (Non- Formulary) 1 each IH DAILY [facility] Last Admin: 12/20/17 10:13 Dose: 1 each Non-Formulary Medication (Tiotropium [place] [Spiriva Respimat]) 4 gm IH DAILY [facility] Last Admin: 12/20/17 10:13 Dose: 4 gm Oxycodone HCl (Roxicodone -) 5 mg PO Q4H PRN PRN Reason: PAIN LEVEL 1-5 Last Admin: 12/20/17 13:49 Dose: 5 mg Pantoprazole Sodium (Protonix -) 40 mg PO DAILY [facility] Last Admin: 12/20/17 10:13 Dose: 40 mg - Objective Vital Signs: Vital Signs Temperature 98.7 F 12/20/17 10:00 Pulse Rate 73 12/20/17 10:00 Respiratory Rate 18 12/20/17 10:00 Blood Pressure 117/73 12/20/17 10:00 O2 Sat by Pulse Oximetry (%) 96 12/20/17 09:00 Constitutional: Yes: No Distress Cardiovascular: Yes: Regular Rate and Rhythm Respiratory: Yes: Regular Gastrointestinal: Yes: Normal Bowel Sounds, Soft Wound/Incision: Yes: Dressing Dry and Intact (Rt LE) Neurological: Yes: Alert, Oriented Labs: CBC, BMP 12/17/17 22:30 12/20/17 06:45 INR, PTT INR 1.17 (0.82-1.09) H 12/10/17 11:40 Problem List - Problems (1) Cellulitis of right anterior lower leg Code(s): L03.115 - CELLULITIS OF RIGHT LOWER LIMB (2) Osteomyelitis Code(s): M86.9 - OSTEOMYELITIS, UNSPECIFIED Assessment/Plan 62 y.o. female with with PMH of scleroderma, rheumatoid arthritis, right breast cancer s/p (chemo, radiation, mastectomy) and HTN presenting with Rt ankle swelling and pain RLE cellulitis w/ Ankle abscess +MRSA Rt lateral malleolar OM -- continue Vancomycin, monitor levels -- monitor renal function, esr trend -- continue wound care
[2017-12-20] MEDS ORDERED: PT OWN MED DRAWER 7, Y5N ONE (18:32)
--- NOTE | 2017-12-20 22:09 | PN ---
Progress Note (short form) - Note Progress Note: 62 year old woman with PMhx of Scleroderma, RA, Hypertension, Hypothyrodism wound on her lower leg admitted for cellulitis hyponatremia. Current Medications Acetaminophen (Tylenol -) 500 mg PO Q6H PRN PRN Reason: FEVER Last Admin: 12/20/17 21:30 Dose: 500 mg Acetaminophen/Butalbital/Caffeine (Fioricet -) 1 tablet PO Q6H PRN PRN Reason: HEADACHE Last Admin: 12/20/17 17:10 Dose: 1 tablet Aspirin (Asa -) 325 mg PO DAILY [facility] Last Admin: 12/20/17 10:13 Dose: 325 mg Diazepam (Valium -) 5 mg PO TID PRN PRN Reason: ANXIETY Last Admin: 12/20/17 13:49 Dose: 5 mg Enoxaparin Sodium (Lovenox -) 40 mg SQ DAILY [facility] Last Admin: 12/20/17 10:13 Dose: 40 mg Hydroxychloroquine Sulfate (Plaquenil -) 200 mg PO DAILY [facility] Last Admin: 12/20/17 10:17 Dose: 200 mg Ceftriaxone Sodium 1 gm/ (Dextrose) 50 mls @ 100 mls/hr IVPB DAILY [facility] Last Admin: 12/20/17 10:15 Dose: 100 mls/hr Vancomycin HCl 1,500 mg/ (Dextrose) 500 mls @ 250 mls/hr IVPB DAILY@1400 [facility] PRN Reason: Protocol Last Admin: 12/20/17 13:57 Dose: 250 mls/hr Levothyroxine Sodium (Synthroid -) 25 mcg PO DAILY [facility] Last Admin: 12/20/17 10:13 Dose: 25 mcg Methocarbamol (Robaxin -) 1,500 mg PO TID [facility] Last Admin: 12/20/17 21:30 Dose: 1,500 mg Metoprolol Succinate (Toprol Xl -) 25 mg PO DAILY [facility] Last Admin: 12/20/17 10:13 Dose: 25 mg Morphine Sulfate (Morphine Sulfate) 2 mg IVPUSH Q4H PRN PRN Reason: PAIN LEVEL 7 - 10 Last Admin: 12/20/17 18:40 Dose: 2 mg Symbicort 80/4.5 Patient's Own Medication (Non- Formulary) 1 each IH DAILY [facility] Last Admin: 12/20/17 10:13 Dose: 1 each Non-Formulary Medication (Tiotropium [place] [Spiriva Respimat]) 4 gm IH DAILY [facility] Last Admin: 12/20/17 10:13 Dose: 4 gm Oxycodone HCl (Roxicodone -) 5 mg PO Q4H PRN PRN Reason: PAIN LEVEL 1-5 Last Admin: 12/20/17 21:30 Dose: 5 mg Pantoprazole Sodium (Protonix -) 40 mg PO DAILY [facility] Last Admin: 12/20/17 10:13 Dose: 40 mg Active Medications Acetaminophen (Tylenol -) 500 mg PO Q6H PRN PRN Reason: FEVER Last Admin: 12/20/17 21:30 Dose: 500 mg Acetaminophen/Butalbital/Caffeine (Fioricet -) 1 tablet PO Q6H PRN PRN Reason: HEADACHE Last Admin: 12/20/17 17:10 Dose: 1 tablet Aspirin (Asa -) 325 mg PO DAILY [facility] Last Admin: 12/20/17 10:13 Dose: 325 mg Diazepam (Valium -) 5 mg PO TID PRN PRN Reason: ANXIETY Last Admin: 12/20/17 13:49 Dose: 5 mg Enoxaparin Sodium (Lovenox -) 40 mg SQ DAILY [facility] Last Admin: 12/20/17 10:13 Dose: 40 mg Hydroxychloroquine Sulfate (Plaquenil -) 200 mg PO DAILY [facility] Last Admin: 12/20/17 10:17 Dose: 200 mg Ceftriaxone Sodium 1 gm/ (Dextrose) 50 mls @ 100 mls/hr IVPB DAILY [facility] Last Admin: 12/20/17 10:15 Dose: 100 mls/hr Vancomycin HCl 1,500 mg/ (Dextrose) 500 mls @ 250 mls/hr IVPB DAILY@1400 [facility] PRN Reason: Protocol Last Admin: 12/20/17 13:57 Dose: 250 mls/hr Levothyroxine Sodium (Synthroid -) 25 mcg PO DAILY [facility] Last Admin: 12/20/17 10:13 Dose: 25 mcg Methocarbamol (Robaxin -) 1,500 mg PO TID [facility] Last Admin: 12/20/17 21:30 Dose: 1,500 mg Metoprolol Succinate (Toprol Xl -) 25 mg PO DAILY [facility] Last Admin: 12/20/17 10:13 Dose: 25 mg Morphine Sulfate (Morphine Sulfate) 2 mg IVPUSH Q4H PRN PRN Reason: PAIN LEVEL 7 - 10 Last Admin: 12/20/17 18:40 Dose: 2 mg Symbicort 80/4.5 Patient's Own Medication (Non- Formulary) 1 each IH DAILY [facility] Last Admin: 12/20/17 10:13 Dose: 1 each Non-Formulary Medication (Tiotropium [place] [Spiriva Respimat]) 4 gm IH DAILY [facility] Last Admin: 12/20/17 10:13 Dose: 4 gm Oxycodone HCl (Roxicodone -) 5 mg PO Q4H PRN PRN Reason: PAIN LEVEL 1-5 Last Admin: 12/20/17 21:30 Dose: 5 mg Pantoprazole Sodium (Protonix -) 40 mg PO DAILY [facility] Last Admin: 12/20/17 10:13 Dose: 40 mg Last Vital Signs Temp Pulse Resp BP Pulse Ox 97.9 F 70 18 123/68 97 12/20/17 18:27 12/20/17 18:27 12/20/17 18:27 12/20/17 18:27 12/20/17 18:30 lungs clear Heart reg Abd soft nontender ext no edema CBC, BMP 12/17/17 22:30 12/20/17 06:45 IMP Hyponatremia/idopathic SIADH #LE cellulitis #Scleroderma #Hx of RA #Hypothyrodism monitor lytes periodically follow sodium trend control water intake
[2017-12-21] MEDS: ACETAMINOPHEN 500 MG TABLET (FP) PO PRN ×2 (02:36→17:00)
[2017-12-21] MEDS: oxyCODONE HCL 5 MG TABLET PO PRN ×5 (02:36→21:39)
[2017-12-21] MEDS: morphine SULFATE 4 MG/ML VIAL IVPUSH PRN ×3 (05:57→14:59)
[2017-12-21] MEDS: METHOCARBAMOL 500 MG TABLET PO SCH ×3 (06:20→21:39)
[2017-12-21 07:22] LABS: BASO % 1.5 % (0-2.0); EOS % 10.2 % (0-4.5); HEMOGLOBIN 11.3 GM/dL (10.7-15.3); LYMPH % 28.3 % (8-40); MCH 32.6 pg (25.7-33.7); MCHC 34.2 g/dl (32.0-36.0); MEAN CELL VOLUME 95.3 fl (80-96); MEAN PLT VOLUME 7.1 fl (7.5-11.1); MONO % 12.7 % (3.8-10.2); NEUT % 47.3 % (42.8-82.8); PLATELET COUNT 334 K/MM3 (134-434); RBC 3.46 M/mm3 (3.60-5.2); WHITE BLOOD COUNT 4.9 K/mm3 (4.0-10.0)
[2017-12-21 08:04] LABS: ALBUMIN 3.3 g/dl (3.4-5.0); ANION GAP 9 (8-16); BLOOD UREA NITROGEN 12 mg/dL (7-18); CALCIUM 8.6 mg/dL (8.5-10.1); CHLORIDE 101 mmol/L (98-107); CO2 25 mmol/L (21-32); GLUCOSE,RANDOM 76 mg/dL (74-106); POTASSIUM 4.5 mmol/L (3.5-5.1); SODIUM 135 mmol/L (136-145)
[2017-12-21 08:17] LABS: ALK PHOS 66 U/L (45-117); BILIRUBIN,TOTAL 0.5 mg/dL (0.2-1.0); CREATININE 0.7 mg/dL (0.55-1.02); SGOT/AST 50 U/L (15-37); SGPT/ALT 62 U/L (12-78); TOT PROT 7.1 g/dl (6.4-8.2)
[2017-12-21] MEDS ORDERED: cefTRIAXone SODIUM 1 GM VIAL ONE (09:42)
[2017-12-21] MEDS ORDERED: DEXTROSE 5%-WATER - 50 ML IVPB ONE (09:42)
[2017-12-21] MEDS: CEFTRIAXONE 1 GM in DEXTROSE 5%-WATER - 50 ML IVPB SCH (10:05)
[2017-12-21] MEDS: HYDROXYCHLOROQUINE SO4 200 MG TABLET (FP) PO SCH (10:06)
[2017-12-21] MEDS: LEVOTHYROXINE NA 25 MCG TABLET (FP) PO SCH (10:06)
[2017-12-21] MEDS: ASPIRIN 325 MG TABLET PO SCH (10:06)
[2017-12-21] MEDS: ENOXAPARIN NA (PORCINE) 40 MG/0.4 ML DISP.SYRIN SQ SCH (10:06)
[2017-12-21] MEDS: metoPROLOL SUCCINATE 25 MG TAB.SR.24H (FP) PO SCH (10:07)
[2017-12-21] MEDS: PANTOPRAZOLE 40 MG TABLET (FP) PO SCH (10:07)
[2017-12-21] MEDS: SYMBICORT IH SCH (10:15)
[2017-12-21] MEDS: PATIENT'S OWN MEDICATION (NON-FORMULARY) (Tiotropium Bromide [Spiriva Respimat] 4 GM) IH SCH (10:15)
[2017-12-21] MEDS: ACETAMINOPHEN/CAFFEINE/BUTALBITAL 1 TAB PO PRN ×2 (11:32→19:51)
[2017-12-21] MEDS ORDERED: PT OWN MED DRAWER 7, Y5N ONE ×2 (13:07→21:18)
--- NOTE | 2017-12-21 14:28 | PN ---
Progress Note, Physician History of Present Illness: stable doing well no complaints - Current Medication List Current Medications: Active Medications Acetaminophen (Tylenol -) 500 mg PO Q6H PRN PRN Reason: FEVER Last Admin: 12/21/17 02:36 Dose: 500 mg Acetaminophen/Butalbital/Caffeine (Fioricet -) 1 tablet PO Q6H PRN PRN Reason: HEADACHE Last Admin: 12/21/17 11:32 Dose: 1 tablet Aspirin (Asa -) 325 mg PO DAILY [facility] Last Admin: 12/21/17 10:06 Dose: 325 mg Collagenase (Santyl -) 1 applic TP DAILY [facility] Diazepam (Valium -) 5 mg PO TID PRN PRN Reason: ANXIETY Last Admin: 12/20/17 23:03 Dose: 5 mg Enoxaparin Sodium (Lovenox -) 40 mg SQ DAILY [facility] Last Admin: 12/21/17 10:06 Dose: 40 mg Hydroxychloroquine Sulfate (Plaquenil -) 200 mg PO DAILY [facility] Last Admin: 12/21/17 10:06 Dose: 200 mg Vancomycin HCl 1,500 mg/ (Dextrose) 500 mls @ 250 mls/hr IVPB DAILY@1400 [facility] PRN Reason: Protocol Last Admin: 12/20/17 13:57 Dose: 250 mls/hr Levothyroxine Sodium (Synthroid -) 25 mcg PO DAILY@0700 [facility] Methocarbamol (Robaxin -) 1,500 mg PO TID [facility] Last Admin: 12/21/17 14:01 Dose: 1,500 mg Metoprolol Succinate (Toprol Xl -) 25 mg PO DAILY [facility] Last Admin: 12/21/17 10:07 Dose: 25 mg Morphine Sulfate (Morphine Sulfate) 2 mg IVPUSH Q4H PRN PRN Reason: PAIN LEVEL 7 - 10 Last Admin: 12/21/17 10:22 Dose: 2 mg Symbicort 80/4.5 Patient's Own Medication (Non- Formulary) 1 each IH DAILY [facility] Last Admin: 12/21/17 10:15 Dose: 1 each Non-Formulary Medication (Tiotropium [place] [Spiriva Respimat]) 4 gm IH DAILY [facility] Last Admin: 12/21/17 10:15 Dose: 4 gm Oxycodone HCl (Roxicodone -) 5 mg PO Q4H PRN PRN Reason: PAIN LEVEL 1-5 Last Admin: 12/21/17 12:38 Dose: 5 mg Pantoprazole Sodium (Protonix -) 40 mg PO DAILY [facility] Last Admin: 12/21/17 10:07 Dose: 40 mg - Objective Vital Signs: Vital Signs Temperature 98.1 F 12/21/17 08:00 Pulse Rate 70 12/21/17 08:00 Respiratory Rate 18 12/21/17 08:00 Blood Pressure 127/64 12/21/17 08:00 O2 Sat by Pulse Oximetry (%) 97 12/21/17 08:47 Constitutional: Yes: No Distress, Calm Cardiovascular: Yes: Regular Rate and Rhythm Respiratory: Yes: Regular, CTA Bilaterally Gastrointestinal: Yes: Normal Bowel Sounds, Soft Musculoskeletal: Yes: WNL Extremities: Yes: Other Wound/Incision: Yes: Dressing Dry and Intact Neurological: Yes: Alert, Oriented Labs: CBC, BMP 12/21/17 06:40 12/21/17 06:40 INR, PTT INR 1.17 (0.82-1.09) H 12/10/17 11:40 Assessment/Plan hyponatremia le cellulitits abscess /collection left ankle joint mrsa wound infection scleroderma hypothyrodism osteo of the rt leg plan continue vanco check vanco trough before tomorrows dose wound care rest as per primary team
[2017-12-21] MEDS: VANCOMYCIN 1,500 MG in DEXTROSE 5%-WATER - 500 ML IVPB SCH (15:11)
--- NOTE | 2017-12-21 19:28 | CONSULT ---
Consult Consult Specialty:: pain medicine Referred by:: hospitalist Reason for Consultation:: right foot pain - History of Present Illness Chief Complaint: right foot pain History of Present Illness: 62 year old female with HTN, scleroderma, rheumatoid arthritis, and right breast ca s/p chemo/RTX/mastectomy who was admitted with rt ankle pain , warmth , redness x 1 week. currently taking oxycodone with minimal pain relief around the clock. pain score 9/10 - Past Medical History ...: No - Alcohol/Substance Use Hx Alcohol Use: No - Smoking History Smoking history: Former smoker Have you smoked in the past 12 months: No If you are a former smoker, when did you quit?: n/a Home Medications - Allergies Allergies/Adverse Reactions: Allergies Allergy/AdvReac Type Severity Reaction Status Date / Time No Known Allergies Allergy Verified 12/10/17 10:55 - Home Medications Home Medications: Ambulatory Orders Aspirin [ASA -] 325 mg PO DAILY 12/10/17 Budesonide/Formeterol Fumarate [SYMBICORT 80/4.5mcg -] 2 puff IH DAILY 12/10/17 Calcium Carb, Citrate/Vit D3 [Calcium + D3 ER Tablet] 600 mg PO DAILY 12/10/17 Carisoprodol [Soma] 350 mg PO TID 12/10/17 Diazepam [Valium] 5 mg PO Q8H PRN 12/10/17 Hydroxychloroquine So4 [Plaquenil -] 200 mg PO DAILY 12/10/17 Iron,Carbonyl/Ascorbic Acid [Fe C Tablet] 1 tab PO DAILY 12/10/17 Levothyroxine [Synthroid -] 25 mcg PO DAILY 12/10/17 Metoprolol Succinate 25 mg PO DAILY 12/10/17 Multivitamin [Daily Multiple Vitamin] 1 tab PO DAILY 12/10/17 Oxycodone HCl/Acetaminophen [Percocet 5-325 mg Tablet] 1 - 2 tab PO BID PRN Tiotropium [place] [Spiriva Respimat] 4 gm IH DAILY 12/10/17 Vitamin B-12 100 mg PO DAILY 12/10/17 Physical Exam Vital Signs: Vital Signs Temperature 98.6 F 12/21/17 14:00 Pulse Rate 72 12/21/17 14:00 Respiratory Rate 20 12/21/17 14:00 Blood Pressure 118/66 12/21/17 14:00 O2 Sat by Pulse Oximetry (%) 97 12/21/17 08:47 Musculoskeletal: Yes: Joint Stiffness Labs: CBC, BMP 12/21/17 06:40 12/21/17 06:40 Assessment/Plan right foot pain secondary to osteomyelitis 1. optimized non opioid meds- start gabapentin 300mg PO q8h tylenol 1000mg PO q8h continue robaxin prn pain 2. WOuld Discontinue all iv pain meds 3. oxycodone 5mg PO q4h prn pain 4. patient is also taking fioricet for headaches
--- NOTE | 2017-12-21 20:09 | PN ---
Physical Exam: SUBJECTIVE: Patient seen and examined OBJECTIVE: Vital Signs Period Temp Pulse Resp BP Sys/Gallegos Pulse Ox Last 24 Hr 97.0 F-98.6 F 64-72 18-20 118-138/64-73 97-97 GENERAL: The patient is awake, alert, and fully oriented, in no acute distress. HEAD: Normal with no signs of trauma. EYES: PERRL, extraocular movements intact, sclera anicteric, conjunctiva clear. No ptosis. ENT: Ears normal, nares patent, oropharynx clear without exudates, moist mucous membranes. NECK: Trachea midline, full range of motion, supple. LUNGS: Breath sounds equal, clear to auscultation bilaterally, no wheezes, no crackles, no accessory muscle use. HEART: Regular rate and rhythm, S1, S2 without murmur, rub or gallop. ABDOMEN: Soft, nontender, nondistended, normoactive bowel sounds, no guarding, no rebound, no hepatosplenomegaly, no masses. EXTREMITIES: 2+ pulses, warm, well-perfused, no edema. NEUROLOGICAL: Cranial nerves II through XII grossly intact. Normal speech, gait not observed. PSYCH: Normal mood, normal affect. SKIN: Warm, dry, normal turgor, no rashes or lesions noted Laboratory Results - last 24 hr 12/21/17 12/21/17 06:40 06:40 WBC 4.9 RBC 3.46 L Hgb 11.3 Hct 33.0 MCV 95.3 MCH 32.6 MCHC 34.2 RDW 13.0 Plt Count 334 MPV 7.1 L Neutrophils % 47.3 D Lymphocytes % 28.3 D Monocytes % 12.7 H Eosinophils % 10.2 H Basophils % 1.5 Sodium 135 L Potassium 4.5 Chloride 101 Carbon Dioxide 25 Anion Gap 9 BUN 12 Creatinine 0.7 Creat Clearance w eGFR > 60 Random Glucose 76 Calcium 8.6 Total Bilirubin 0.5 AST 50 H ALT 62 Alkaline Phosphatase 66 Total Protein 7.1 Albumin 3.3 L TSH 5.14 H Active Medications Generic Name Dose Route Start Last Admin Trade Name Freq PRN Reason Stop Dose Admin Acetaminophen 500 mg 12/10/17 19:56 12/21/17 17:00 Tylenol - PO 500 mg Q6H PRN Administration FEVER Acetaminophen/Butalbital/Caffeine 1 tablet 12/15/17 14:44 12/21/17 19:51 Fioricet - PO 1 tablet Q6H PRN Administration HEADACHE Aspirin 325 mg 12/11/17 10:00 12/21/17 10:06 Asa - PO 325 mg DAILY [facility] Administration Collagenase 1 applic 12/22/17 10:00 Santyl - TP DAILY [facility] Diazepam 5 mg 12/17/17 16:37 12/20/17 23:03 Valium - PO 5 mg TID PRN Administration ANXIETY Enoxaparin Sodium 40 mg 12/11/17 10:00 12/21/17 10:06 Lovenox - SQ 40 mg DAILY [facility] Administration Hydroxychloroquine Sulfate 200 mg 12/11/17 10:00 12/21/17 10:06 Plaquenil - PO 200 mg DAILY [facility] Administration Vancomycin HCl 1,500 mg/ 500 mls @ 250 mls/hr 12/19/17 14:00 12/21/17 15:11 Dextrose IVPB 250 mls/hr DAILY@1400 [facility] Administration Protocol Levothyroxine Sodium 25 mcg 12/21/17 12:46 Synthroid - PO DAILY@0700 [facility] Methocarbamol 1,500 mg 12/12/17 14:00 12/21/17 14:01 Robaxin - PO 1,500 mg TID [facility] Administration Metoprolol Succinate 25 mg 12/11/17 10:00 12/21/17 10:07 Toprol Xl - PO 25 mg DAILY [facility] Administration Symbicort 80/4.5 1 each 12/10/17 20:15 12/21/17 10:15 Patient's Own IH 1 each Medication (Non- DAILY [facility] Administration Formulary) Non-Formulary Medication 4 gm 12/11/17 10:00 12/21/17 10:15 Tiotropium [place] [Spiriva Respimat] IH 4 gm DAILY [facility] Administration Oxycodone HCl 5 mg 12/15/17 09:51 12/21/17 16:59 Roxicodone - PO 5 mg Q4H PRN Administration PAIN LEVEL 1-5 Pantoprazole Sodium 40 mg 12/15/17 14:45 12/21/17 10:07 Protonix - PO 40 mg DAILY [facility] Administration ASSESSMENT/PLAN
--- NOTE | 2017-12-21 20:11 | PN ---
Physical Exam: SUBJECTIVE: Patient seen and examined sitting up in bed eating lunch. Voices no complaints. OBJECTIVE: Vital Signs Period Temp Pulse Resp BP Sys/Gallegos Pulse Ox Last 24 Hr 97.0 F-98.6 F 64-72 18-20 118-138/64-73 97-97 GENERAL: The patient is awake, alert, and fully oriented, in no acute distress. LUNGS: Breath sounds equal, clear to auscultation bilaterally, no wheezes, no crackles, no accessory muscle use. HEART: Regular rate and rhythm, S1, S2 without murmur, rub or gallop. ABDOMEN: Soft, nontender, nondistended, normoactive bowel sounds, no guarding, no rebound, no hepatosplenomegaly, no masses. EXTREMITIES: RLE dressing c/d/i NEUROLOGICAL: Cranial nerves II through XII grossly intact. Normal speech, gait not observed. Laboratory Results - last 24 hr 12/21/17 12/21/17 06:40 06:40 WBC 4.9 RBC 3.46 L Hgb 11.3 Hct 33.0 MCV 95.3 MCH 32.6 MCHC 34.2 RDW 13.0 Plt Count 334 MPV 7.1 L Neutrophils % 47.3 D Lymphocytes % 28.3 D Monocytes % 12.7 H Eosinophils % 10.2 H Basophils % 1.5 Sodium 135 L Potassium 4.5 Chloride 101 Carbon Dioxide 25 Anion Gap 9 BUN 12 Creatinine 0.7 Creat Clearance w eGFR > 60 Random Glucose 76 Calcium 8.6 Total Bilirubin 0.5 AST 50 H ALT 62 Alkaline Phosphatase 66 Total Protein 7.1 Albumin 3.3 L TSH 5.14 H Active Medications Generic Name Dose Route Start Last Admin Trade Name Pierreq PRN Reason Stop Dose Admin Acetaminophen 500 mg 12/10/17 19:56 12/21/17 17:00 Tylenol - PO 500 mg Q6H PRN Administration FEVER Acetaminophen/Butalbital/Caffeine 1 tablet 12/15/17 14:44 12/21/17 19:51 Fioricet - PO 1 tablet Q6H PRN Administration HEADACHE Aspirin 325 mg 12/11/17 10:00 12/21/17 10:06 Asa - PO 325 mg DAILY [facility] Administration Collagenase 1 applic 12/22/17 10:00 Santyl - TP DAILY [facility] Diazepam 5 mg 12/17/17 16:37 12/20/17 23:03 Valium - PO 5 mg TID PRN Administration ANXIETY Enoxaparin Sodium 40 mg 12/11/17 10:00 12/21/17 10:06 Lovenox - SQ 40 mg DAILY [facility] Administration Hydroxychloroquine Sulfate 200 mg 12/11/17 10:00 12/21/17 10:06 Plaquenil - PO 200 mg DAILY [facility] Administration Vancomycin HCl 1,500 mg/ 500 mls @ 250 mls/hr 12/19/17 14:00 12/21/17 15:11 Dextrose IVPB 250 mls/hr DAILY@1400 [facility] Administration Protocol Levothyroxine Sodium 25 mcg 12/21/17 12:46 Synthroid - PO DAILY@0700 [facility] Methocarbamol 1,500 mg 12/12/17 14:00 12/21/17 14:01 Robaxin - PO 1,500 mg TID [facility] Administration Metoprolol Succinate 25 mg 12/11/17 10:00 12/21/17 10:07 Toprol Xl - PO 25 mg DAILY [facility] Administration Symbicort 80/4.5 1 each 12/10/17 20:15 12/21/17 10:15 Patient's Own IH 1 each Medication (Non- DAILY [facility] Administration Formulary) Non-Formulary Medication 4 gm 12/11/17 10:00 12/21/17 10:15 Tiotropium [place] [Spiriva Respimat] IH 4 gm DAILY [facility] Administration Oxycodone HCl 5 mg 12/15/17 09:51 12/21/17 16:59 Roxicodone - PO 5 mg Q4H PRN Administration PAIN LEVEL 1-5 Pantoprazole Sodium 40 mg 12/15/17 14:45 12/21/17 10:07 Protonix - PO 40 mg DAILY [facility] Administration ASSESSMENT/PLAN 62 year-old female with a PMH significant for HTN, scleroderma, rheumatoid arthritis, and right breast ca s/p chemo/RTX/mastectomy. Admitted for right ankle cellulitis. Cellulitis right lateral mallelous --MRI: osteomyelitis lateral malleolus --Wound culture MRSA --afebrile, no leukocytosis --continue Vanc; will need four weeks of therapy --no surgical intervention per podiatry Pain management --seen by pain management; stop all IV pain meds --start gabapentin --continue tylenol, robaxin, oxycodone, fioricet for headaches Anxiety --continue valium Hypertension --BP stable --continue metoprolol Scleroderma --stable Rheumatoid arthritis --continue Plaquenil Breast cancer --stable Hyponatremia, resolved FEN Fluids: PO intake adequate Electrolytes: replete as indicated Nutrition: sodium controlled DVT prophylaxis: enoxaparin Physical therapy Dispo: discharge planning; will need PICC line, f/u Wound Clinic, hyperbaric therapy. Full code. Visit type - Emergency Visit Emergency Visit: Yes ED Registration Date: 12/10/17 Care time: The patient presented to the Emergency Department on the above date and was hospitalized for further evaluation of their emergent condition. - New Patient This patient is new to me today: No - Critical Care Critical Care patient: No
--- NOTE | 2017-12-21 20:46 | PN ---
Progress Note (short form) - Note Progress Note: Patient seen in bed this morning with a bandage on right ankle area. pain improved. vss. Tmax 98.6 mrsa, om nvsgi, +improved cellulitis, +tenderness, +grade 3 wound lateral right ankle Om improved cellulitis no surgical intervention at this time. hbo consult being done today. Continue abx as per ID. dc Betadine dressing. Daily santyl dressing change to right ankle daily. Will follow.
[2017-12-21] MEDS: diazePAM 5 MG TABLET PO PRN (21:38)
[2017-12-21] MEDS: GABAPENTIN 300 MG CAPSULE (FP) PO SCH (21:38)
[2017-12-22] MEDS: ACETAMINOPHEN/CAFFEINE/BUTALBITAL 1 TAB PO PRN (02:03)
[2017-12-22] MEDS: oxyCODONE HCL 5 MG TABLET PO PRN ×4 (03:49→16:52)
[2017-12-22] MEDS: GABAPENTIN 300 MG CAPSULE (FP) PO SCH ×3 (05:59→21:04)
[2017-12-22] MEDS: METHOCARBAMOL 500 MG TABLET PO SCH ×3 (05:59→21:04)
[2017-12-22] MEDS: LEVOTHYROXINE NA 25 MCG TABLET (FP) PO SCH (05:59)
[2017-12-22] MEDS: ACETAMINOPHEN 500 MG TABLET (FP) PO PRN ×2 (08:05→16:53)
[2017-12-22] MEDS ORDERED: PICC LINE 8 ML FLUSH PROTOCOL IVPUSH PRN (08:08)
[2017-12-22] MEDS ORDERED: PT OWN MED DRAWER 7, Y5N ONE ×4 (10:15→20:55)
[2017-12-22] MEDS: PANTOPRAZOLE 40 MG TABLET (FP) PO SCH (10:23)
[2017-12-22] MEDS: ASPIRIN 325 MG TABLET PO SCH (10:23)
[2017-12-22] MEDS: metoPROLOL SUCCINATE 25 MG TAB.SR.24H (FP) PO SCH (10:23)
[2017-12-22] MEDS: HYDROXYCHLOROQUINE SO4 200 MG TABLET (FP) PO SCH (10:24)
[2017-12-22] MEDS: ENOXAPARIN NA (PORCINE) 40 MG/0.4 ML DISP.SYRIN SQ SCH (10:24)
[2017-12-22] MEDS: COLLAGENASE CLOSTRIDIUM HIST. 30 GRAMS TUBE TP SCH (10:27)
[2017-12-22] MEDS: SYMBICORT IH SCH (10:28)
[2017-12-22] MEDS: PATIENT'S OWN MEDICATION (NON-FORMULARY) (Tiotropium Bromide [Spiriva Respimat] 4 GM) IH SCH (10:28)
[2017-12-22] MEDS: diazePAM 5 MG TABLET PO PRN ×3 (11:08→23:47)
--- NOTE | 2017-12-22 12:39 | DS ---
Physical Exam: SUBJECTIVE: Patient seen and examined OBJECTIVE: Vital Signs Period Temp Pulse Resp BP Sys/Gallegos Pulse Ox Last 24 Hr 98.2 F-98.8 F 61-78 18-20 118-144/63-72 98-98 PHYSICAL EXAM GENERAL: The patient is awake, alert, and fully oriented, in no acute distress. HEAD: Normal with no signs of trauma. EYES: PERRL, extraocular movements intact, sclera anicteric, conjunctiva clear. ENT: Ears normal, nares patent, oropharynx clear without exudates, moist mucous membranes. NECK: Trachea midline, full range of motion, supple. LUNGS: Breath sounds equal, clear to auscultation bilaterally, no wheezes, no crackles, no accessory muscle use. HEART: Regular rate and rhythm, S1, S2 without murmur, rub or gallop. ABDOMEN: Soft, nontender, nondistended, normoactive bowel sounds, no guarding, no rebound, no hepatosplenomegaly, no masses. EXTREMITIES: 2+ pulses, warm, well-perfused, no edema. NEUROLOGICAL: Cranial nerves II through XII grossly intact. Normal speech, gait not observed. PSYCH: Normal mood, normal affect. SKIN: Warm, dry, normal turgor, no rashes or lesions noted. LABS HOSPITAL COURSE: Date of Admission:12/10/17 Date of Discharge: 12/22/17 Minutes to complete discharge: 35 Discharge Summary Reason For Visit: CELLULITIS OF R ANTERIOR LOWER LEG Current Active Problems Cellulitis of right anterior lower leg (Acute) Chronic pain (Acute) DVT prophylaxis (Acute) Hyponatremia (Acute) Hypothyroidism (Acute) MRSA (methicillin resistant staph aureus) culture positive (Acute) Osteomyelitis (Acute) Condition: Improved - Instructions Diet, Activity, Other Instructions: You are being discharged to home today with a PICC line and home infusion services. You should follow up with Dr. Rodriguez in two weeks. Two prescriptions have been sent to your pharmacy Referrals: Suzan Rodriguez MD [Staff Physician] - 2 Weeks Mitra Zimmerman [Primary Care Provider] - Disposition: HOME - Home Medications Comprehensive Discharge Medication List: Ambulatory Orders Aspirin [ASA -] 325 mg PO DAILY 12/10/17 Budesonide/Formeterol Fumarate [SYMBICORT 80/4.5mcg -] 2 puff IH DAILY 12/10/17 Calcium Carb, Citrate/Vit D3 [Calcium + D3 ER Tablet] 600 mg PO DAILY 12/10/17 Carisoprodol [Soma] 350 mg PO TID 12/10/17 Diazepam [Valium] 5 mg PO Q8H PRN 12/10/17 Hydroxychloroquine So4 [Plaquenil -] 200 mg PO DAILY 12/10/17 Iron,Carbonyl/Ascorbic Acid [Fe C Tablet] 1 tab PO DAILY 12/10/17 Levothyroxine [Synthroid -] 25 mcg PO DAILY 12/10/17 Metoprolol Succinate 25 mg PO DAILY 12/10/17 Multivitamin [Daily Multiple Vitamin] 1 tab PO DAILY 12/10/17 Oxycodone HCl/Acetaminophen [Percocet 5-325 mg Tablet] 1 - 2 tab PO BID PRN Tiotropium [place] [Spiriva Respimat] 4 gm IH DAILY 12/10/17 Vitamin B-12 100 mg PO DAILY 12/10/17 Gabapentin [Neurontin -] 300 mg PO TID #90 capsule 12/22/17 Vancomycin 1,500 mg IVPB DAILY@1400 #28 vial 12/22/17 This patient is new to me today: No Emergency Visit: Yes ED Registration Date: 12/10/17 Care time: The patient presented to the Emergency Department on the above date and was hospitalized for further evaluation of their emergent condition. Critical Care patient: No - Discharge Referral Referred to [facility] Med P.C.: No
--- NOTE | 2017-12-22 13:38 | PN ---
Progress Note, Physician History of Present Illness: patient doing well no new issues - Current Medication List Current Medications: Active Medications Acetaminophen (Tylenol -) 500 mg PO Q6H PRN PRN Reason: FEVER Last Admin: 12/22/17 08:05 Dose: 500 mg Acetaminophen/Butalbital/Caffeine (Fioricet -) 1 tablet PO Q6H PRN PRN Reason: HEADACHE Last Admin: 12/22/17 02:03 Dose: 1 tablet Aspirin (Asa -) 325 mg PO DAILY [facility] Last Admin: 12/22/17 10:23 Dose: 325 mg Collagenase (Santyl -) 1 applic TP DAILY [facility] Last Admin: 12/22/17 10:27 Dose: 1 applic Diazepam (Valium -) 5 mg PO TID PRN PRN Reason: ANXIETY Last Admin: 12/22/17 11:08 Dose: 5 mg Enoxaparin Sodium (Lovenox -) 40 mg SQ DAILY [facility] Last Admin: 12/22/17 10:24 Dose: 40 mg Gabapentin (Neurontin -) 300 mg PO TID [facility] Last Admin: 12/22/17 05:59 Dose: 300 mg Hydroxychloroquine Sulfate (Plaquenil -) 200 mg PO DAILY [facility] Last Admin: 12/22/17 10:24 Dose: 200 mg IV Flush (Picc Line Flush) 8 ml IVPUSH PRN PRN PRN Reason: Protocol Vancomycin HCl 1,500 mg/ (Dextrose) 500 mls @ 250 mls/hr IVPB DAILY@1400 JAYA PRN Reason: Protocol Last Admin: 12/21/17 15:11 Dose: 250 mls/hr Levothyroxine Sodium (Synthroid -) 25 mcg PO DAILY@0700 [facility] Last Admin: 12/22/17 05:59 Dose: 25 mcg Methocarbamol (Robaxin -) 1,500 mg PO TID [facility] Last Admin: 12/22/17 05:59 Dose: 1,500 mg Metoprolol Succinate (Toprol Xl -) 25 mg PO DAILY [facility] Last Admin: 12/22/17 10:23 Dose: 25 mg Symbicort 80/4.5 Patient's Own Medication (Non- Formulary) 1 each IH DAILY [facility] Last Admin: 12/22/17 10:28 Dose: 1 each Non-Formulary Medication (Tiotropium [place] [Spiriva Respimat]) 4 gm IH DAILY [facility] Last Admin: 12/22/17 10:28 Dose: 4 gm Oxycodone HCl (Roxicodone -) 5 mg PO Q4H PRN PRN Reason: PAIN LEVEL 1-5 Last Admin: 12/22/17 12:48 Dose: 5 mg Pantoprazole Sodium (Protonix -) 40 mg PO DAILY [facility] Last Admin: 12/22/17 10:23 Dose: 40 mg - Objective Vital Signs: Vital Signs Temperature 98.0 F 12/22/17 13:09 Pulse Rate 70 12/22/17 13:09 Respiratory Rate 18 12/22/17 13:09 Blood Pressure 127/72 12/22/17 13:09 O2 Sat by Pulse Oximetry (%) 98 12/22/17 09:00 Constitutional: Yes: No Distress, Calm Cardiovascular: Yes: Regular Rate and Rhythm Respiratory: Yes: Regular, CTA Bilaterally Gastrointestinal: Yes: Normal Bowel Sounds, Soft Musculoskeletal: Yes: WNL Extremities: Yes: WNL Neurological: Yes: Alert, Oriented Psychiatric: Yes: Alert, Oriented Labs: CBC, BMP 12/21/17 06:40 12/21/17 06:40 INR, PTT INR 1.17 (0.82-1.09) H 12/10/17 11:40 Assessment/Plan hyponatremia le cellulitits abscess /collection left ankle joint mrsa wound infection scleroderma hypothyrodism osteo of the rt leg plan continue vanco i have ordered a stat vanco level follow the vanco level before sending the patient home follow cbc bmp esr and crp weekly
--- NOTE | 2017-12-22 14:31 | PN ---
Progress Note (short form) - Note Progress Note: Renal follow up for Hyponatremia Pt seen and examined at the bedside no acute complaints denies any sob, chest pain, abd pain Vital Signs Temperature 98.5 F 12/22/17 14:00 Pulse Rate 70 12/22/17 13:09 Respiratory Rate 18 12/22/17 13:09 Blood Pressure 127/72 12/22/17 13:09 O2 Sat by Pulse Oximetry (%) 98 12/22/17 09:00 Intake & Output 12/19/17 12/20/17 12/21/17 12/22/17 23:59 23:59 23:59 23:59 Intake Total 373 622 8741 220 Balance 089 497 5334 220 NAD MMM No JVD neck supple No LE edema CBC, BMP 12/21/17 06:40 12/21/17 06:40 Current Medications Acetaminophen (Tylenol -) 500 mg PO Q6H PRN PRN Reason: FEVER Last Admin: 12/22/17 08:05 Dose: 500 mg Acetaminophen/Butalbital/Caffeine (Fioricet -) 1 tablet PO Q6H PRN PRN Reason: HEADACHE Last Admin: 12/22/17 02:03 Dose: 1 tablet Aspirin (Asa -) 325 mg PO DAILY [facility] Last Admin: 12/22/17 10:23 Dose: 325 mg Collagenase (Santyl -) 1 applic TP DAILY [facility] Last Admin: 12/22/17 10:27 Dose: 1 applic Diazepam (Valium -) 5 mg PO TID PRN PRN Reason: ANXIETY Last Admin: 12/22/17 11:08 Dose: 5 mg Enoxaparin Sodium (Lovenox -) 40 mg SQ DAILY [facility] Last Admin: 12/22/17 10:24 Dose: 40 mg Gabapentin (Neurontin -) 300 mg PO TID [facility] Last Admin: 12/22/17 05:59 Dose: 300 mg Hydroxychloroquine Sulfate (Plaquenil -) 200 mg PO DAILY [facility] Last Admin: 12/22/17 10:24 Dose: 200 mg IV Flush (Picc Line Flush) 8 ml IVPUSH PRN PRN PRN Reason: Protocol Vancomycin HCl 1,500 mg/ (Dextrose) 500 mls @ 250 mls/hr IVPB DAILY@1400 JAYA PRN Reason: Protocol Last Admin: 12/21/17 15:11 Dose: 250 mls/hr Levothyroxine Sodium (Synthroid -) 25 mcg PO DAILY@0700 [facility] Last Admin: 12/22/17 05:59 Dose: 25 mcg Methocarbamol (Robaxin -) 1,500 mg PO TID [facility] Last Admin: 12/22/17 14:27 Dose: 1,500 mg Metoprolol Succinate (Toprol Xl -) 25 mg PO DAILY [facility] Last Admin: 12/22/17 10:23 Dose: 25 mg Symbicort 80/4.5 Patient's Own Medication (Non- Formulary) 1 each IH DAILY [facility] Last Admin: 12/22/17 10:28 Dose: 1 each Non-Formulary Medication (Tiotropium [place] [Spiriva Respimat]) 4 gm IH DAILY [facility] Last Admin: 12/22/17 10:28 Dose: 4 gm Oxycodone HCl (Roxicodone -) 5 mg PO Q4H PRN PRN Reason: PAIN LEVEL 1-5 Last Admin: 12/22/17 12:48 Dose: 5 mg Pantoprazole Sodium (Protonix -) 40 mg PO DAILY [facility] Last Admin: 12/22/17 10:23 Dose: 40 mg 62 year old woman with PMhx of Scleroderma, RA, Hypertension, Hypothyrodism presented with wound on her lower leg and admitted for cellulitis with hyponatremia. 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
[2017-12-22] MEDS ORDERED: VANCOMYCIN 500 MG in DEXTROSE 5%-WATER - 100 ML IVPB ONE (17:00)
[2017-12-22] MEDS: VANCOMYCIN 1,500 MG in DEXTROSE 5%-WATER - 500 ML IVPB SCH (18:03)
--- NOTE | 2017-12-22 18:43 | PN ---
Progress Note (short form) - Note Progress Note: Patient seen in bed. Received picc line today. States going home today. vss. Tmax 98.5 mrsa, om nvsgi, +improved cellulitis, +tenderness, +grade 3 wound lateral right ankle Om improved cellulitis no surgical intervention at this time. hbo outpatient. Continue abx as per ID at home. Daily santyl dressing change to right ankle daily at home. Will follow. follow up in wound care next Thursday.
[2017-12-23] MEDS: ACETAMINOPHEN 500 MG TABLET (FP) PO PRN (01:25)
[2017-12-23] MEDS: oxyCODONE HCL 5 MG TABLET PO PRN ×3 (01:26→14:38)
[2017-12-23] MEDS ORDERED: PT OWN MED DRAWER 7, Y5N ONE ×2 (05:56→13:36)
[2017-12-23] MEDS: LEVOTHYROXINE NA 25 MCG TABLET (FP) PO SCH (06:00)
[2017-12-23] MEDS: GABAPENTIN 300 MG CAPSULE (FP) PO SCH ×2 (06:00→13:36)
[2017-12-23] MEDS: METHOCARBAMOL 500 MG TABLET PO SCH ×2 (06:01→13:36)
[2017-12-23] MEDS: ACETAMINOPHEN/CAFFEINE/BUTALBITAL 1 TAB PO PRN ×2 (08:21→14:38)
[2017-12-23] MEDS: HYDROXYCHLOROQUINE SO4 200 MG TABLET (FP) PO SCH (09:23)
[2017-12-23] MEDS: metoPROLOL SUCCINATE 25 MG TAB.SR.24H (FP) PO SCH (09:23)
[2017-12-23] MEDS: ASPIRIN 325 MG TABLET PO SCH (09:27)
[2017-12-23] MEDS: ENOXAPARIN NA (PORCINE) 40 MG/0.4 ML DISP.SYRIN SQ SCH (09:27)
[2017-12-23] MEDS: PANTOPRAZOLE 40 MG TABLET (FP) PO SCH (09:27)
[2017-12-23] MEDS: PATIENT'S OWN MEDICATION (NON-FORMULARY) (Tiotropium Bromide [Spiriva Respimat] 4 GM) IH SCH (09:28)
[2017-12-23] MEDS: SYMBICORT IH SCH (09:28)
[2017-12-23] MEDS: COLLAGENASE CLOSTRIDIUM HIST. 30 GRAMS TUBE TP SCH (09:53)
[2017-12-23] MEDS ORDERED: VANCOMYCIN HCL IVPB SCH (10:00)
[2017-12-23] MEDS ORDERED: WATER IVPB SCH (10:00)
[2017-12-23] MEDS ORDERED: DEXTROSE 5% IVPB SCH (10:00)
[2017-12-23 10:27] VITALS: PULSE 72; TEMP 98.2
[2017-12-23 10:39] VITALS: BP 127/70
--- NOTE | 2017-12-23 11:55 | PN ---
Progress Note, Physician History of Present Illness: stable doing well no new issues - Current Medication List Current Medications: Active Medications Acetaminophen (Tylenol -) 500 mg PO Q6H PRN PRN Reason: FEVER Last Admin: 12/23/17 01:25 Dose: 500 mg Acetaminophen/Butalbital/Caffeine (Fioricet -) 1 tablet PO Q6H PRN PRN Reason: HEADACHE Last Admin: 12/23/17 08:21 Dose: 1 tablet Aspirin (Asa -) 325 mg PO DAILY [facility] Last Admin: 12/23/17 09:27 Dose: 325 mg Collagenase (Santyl -) 1 applic TP DAILY [facility] Last Admin: 12/23/17 09:53 Dose: 1 applic Diazepam (Valium -) 5 mg PO TID PRN PRN Reason: ANXIETY Last Admin: 12/22/17 23:47 Dose: 5 mg Enoxaparin Sodium (Lovenox -) 40 mg SQ DAILY [facility] Last Admin: 12/23/17 09:27 Dose: 40 mg Gabapentin (Neurontin -) 300 mg PO TID [facility] Last Admin: 12/23/17 06:00 Dose: 300 mg Hydroxychloroquine Sulfate (Plaquenil -) 200 mg PO DAILY [facility] Last Admin: 12/23/17 09:23 Dose: 200 mg IV Flush (Picc Line Flush) 8 ml IVPUSH PRN PRN PRN Reason: Protocol Last Admin: 12/22/17 18:04 Dose: 8 ml Vancomycin HCl 2 gm/ Dextrose 500 mls @ 250 mls/hr IVPB DAILY [facility] Last Admin: 12/23/17 09:53 Dose: 250 mls/hr Levothyroxine Sodium (Synthroid -) 25 mcg PO DAILY@0700 [facility] Last Admin: 12/23/17 06:00 Dose: 25 mcg Methocarbamol (Robaxin -) 1,500 mg PO TID [facility] Last Admin: 12/23/17 06:01 Dose: 1,500 mg Metoprolol Succinate (Toprol Xl -) 25 mg PO DAILY [facility] Last Admin: 12/23/17 09:23 Dose: 25 mg Symbicort 80/4.5 Patient's Own Medication (Non- Formulary) 1 each IH DAILY [facility] Last Admin: 12/23/17 09:28 Dose: 1 each Non-Formulary Medication (Tiotropium [place] [Spiriva Respimat]) 4 gm IH DAILY [facility] Last Admin: 12/23/17 09:28 Dose: 4 gm Oxycodone HCl (Roxicodone -) 5 mg PO Q4H PRN PRN Reason: PAIN LEVEL 1-5 Last Admin: 12/23/17 08:24 Dose: 5 mg Pantoprazole Sodium (Protonix -) 40 mg PO DAILY [facility] Last Admin: 12/23/17 09:27 Dose: 40 mg - Objective Vital Signs: Vital Signs Temperature 98.2 F 12/23/17 10:00 Pulse Rate 72 12/23/17 10:00 Respiratory Rate 16 12/23/17 10:00 Blood Pressure 127/70 12/23/17 10:00 O2 Sat by Pulse Oximetry (%) 98 12/23/17 09:00 Constitutional: Yes: No Distress, Calm Cardiovascular: Yes: Regular Rate and Rhythm Respiratory: Yes: Regular, CTA Bilaterally Gastrointestinal: Yes: Normal Bowel Sounds, Soft Musculoskeletal: Yes: WNL Extremities: Yes: Other Wound/Incision: Yes: Dressing Dry and Intact Neurological: Yes: Alert, Oriented Psychiatric: Yes: Alert, Oriented Labs: CBC, BMP 12/21/17 06:40 12/21/17 06:40 INR, PTT INR 1.17 (0.82-1.09) H 12/10/17 11:40 Assessment/Plan hyponatremia le cellulitits abscess /collection left ankle joint mrsa wound infection scleroderma hypothyrodism osteo of the rt leg plan continue vanco vanco level noted increased dose of vanco follow cbc bmp esr crp vanco trough before the 4th dose
== END 2017-12-23 15:33 | disposition home or self-care (01) | DRG 383 ==
LOC: JER 10:50 → JERBED 15:14 → J7W 17:15 → J6S 12-20 18:11
PROVIDERS: ADMIT Internal Medicine; ATTEND Nurse Practitioner Acute Care
PROC: 02HV33Z Insertion of Infusion Device into Superior Vena Cava, Percutaneous Approach (ICD-10-PCS; principal; 2017-12-22)
PROC: B518ZZA Fluoroscopy of Superior Vena Cava, Guidance (ICD-10-PCS; 2017-12-22)
DX: L03.115 Cellulitis of right lower limb (principal); I10 Essential (primary) hypertension; M06.9 Rheumatoid arthritis, unspecified; E03.9 Hypothyroidism, unspecified; Z92.21 Personal history of antineoplastic chemotherapy; L02.415 Cutaneous abscess of right lower limb; B95.62 Methicillin resistant Staphylococcus aureus infection as the cause of diseases classified elsewhere; Z85.3 Personal history of malignant neoplasm of breast; M86.9 Osteomyelitis, unspecified; E87.1 Hypo-osmolality and hyponatremia; F41.9 Anxiety disorder, unspecified; M34.9 Systemic sclerosis, unspecified; E22.2 Syndrome of inappropriate secretion of antidiuretic hormone
CPT/HCPCS: 36415; 36569; 71045-TC-FY; 73610-TC-RT-FY; 73630-TC-RT-FY; 73700-TC-RT; 73723-TC; 77001-TC-FY; 80048; 80053; 82533; 83735; 83930; 83935; 84100; 84300; 84443; 84550; 85025; 85610; 85651; 86140; 87040; 87070; 87186; 87205; 93005; 93010; 93971-TC; 97116-GP; 97161-GP; 99282-25; C1751; G0480

== ENCOUNTER 2017-12-25 09:54 | Day surgery (SDC) | payer OTHER ==
[~2017-12-25 09:54] MED LIST: VANCOMYCIN 2,000 MG in DEXTROSE 5%-WATER - 500 ML IVPB ONE
[2017-12-25 13:57] VITALS: BP 140/66; PULSE 72; TEMP 98.5
== END 2017-12-25 15:04 | disposition home or self-care (01) ==
LOC: JINFUSION 09:54
PROVIDERS: ATTEND Internal Medicine Infectious Disease
DX: L03.115 Cellulitis of right lower limb (principal); L02.415 Cutaneous abscess of right lower limb; B95.62 Methicillin resistant Staphylococcus aureus infection as the cause of diseases classified elsewhere; M86.9 Osteomyelitis, unspecified
CPT/HCPCS: 96365; 96366

== ENCOUNTER 2017-12-26 10:06 | Day surgery (SDC) | payer OTHER ==
[2017-12-26] MEDS ORDERED: VANCOMYCIN 2,000 MG in DEXTROSE 5%-WATER - 500 ML IVPB ONE (10:45)
[2017-12-26 18:03] VITALS: BP 141/74; PULSE 76; TEMP 98
== END 2017-12-26 15:00 | disposition home or self-care (01) ==
LOC: JINFUSION 10:06 → J7W 10:07 → JINFUSION 15:00
PROVIDERS: ATTEND Internal Medicine Infectious Disease
DX: L03.115 Cellulitis of right lower limb (principal); L02.415 Cutaneous abscess of right lower limb; B95.62 Methicillin resistant Staphylococcus aureus infection as the cause of diseases classified elsewhere; M86.9 Osteomyelitis, unspecified
CPT/HCPCS: 96365; 96366; G0480

== ENCOUNTER 2017-12-27 10:28 | Day surgery (SDC) | payer OTHER ==
[2017-12-27] MEDS ORDERED: VANCOMYCIN 2,000 MG in DEXTROSE 5%-WATER - 500 ML IVPB ONE (11:00)
[2017-12-27 11:42] VITALS: TEMP 98.3
[2017-12-27 16:25] VITALS: BP 151/78; PULSE 72
== END 2017-12-27 15:00 | disposition home or self-care (01) ==
LOC: JINFUSION 10:28 → J7W 10:29 → JINFUSION 15:00
PROVIDERS: ATTEND Internal Medicine Infectious Disease
DX: L03.115 Cellulitis of right lower limb (principal); L02.415 Cutaneous abscess of right lower limb; B95.62 Methicillin resistant Staphylococcus aureus infection as the cause of diseases classified elsewhere; M86.9 Osteomyelitis, unspecified
CPT/HCPCS: 96365; 96366

== ENCOUNTER 2017-12-28 10:10 | Day surgery (SDC) | payer OTHER ==
[2017-12-28 10:44] LABS: HEMATOCRIT 33.2 % (32.4-45.2); HEMOGLOBIN 11.5 GM/dL (10.7-15.3); MCH 32.7 pg (25.7-33.7); MCHC 34.5 g/dl (32.0-36.0); MEAN CELL VOLUME 94.8 fl (80-96); MEAN PLT VOLUME 7.6 fl (7.5-11.1); PLATELET COUNT 226 K/MM3 (134-434); RDW 13.6 % (11.6-15.6); WHITE BLOOD COUNT 4.8 K/mm3 (4.0-10.0)
[2017-12-28 11:06] LABS: ANION GAP 8 (8-16); BLOOD UREA NITROGEN 5 mg/dL (7-18); CALCIUM 8.8 mg/dL (8.5-10.1); CHLORIDE 96 mmol/L (98-107); CO2 26 mmol/L (21-32); CREATININE 0.6 mg/dL (0.55-1.02); GLUCOSE,RANDOM 73 mg/dL (74-106); POTASSIUM 4.1 mmol/L (3.5-5.1); SODIUM 130 mmol/L (136-145)
[2017-12-28 12:13] VITALS: TEMP 98
[2017-12-28 12:15] LABS: ERYTHROCYTE SEDIMENTATION RATE 26 mm/hr (0-30)
[2017-12-28] MEDS ORDERED: VANCOMYCIN 2,000 MG in DEXTROSE 5%-WATER - 500 ML IVPB ONE (12:15)
[2017-12-28 14:55] VITALS: BP 142/87; PULSE 64
== END 2017-12-28 15:04 | disposition home or self-care (01) ==
LOC: JINFUSION 10:10
PROVIDERS: ATTEND Internal Medicine Infectious Disease
DX: L03.115 Cellulitis of right lower limb (principal); L02.415 Cutaneous abscess of right lower limb; B95.62 Methicillin resistant Staphylococcus aureus infection as the cause of diseases classified elsewhere; M86.9 Osteomyelitis, unspecified
CPT/HCPCS: 36415; 80048; 85027; 85651; 86140; 96365; 96366

== ENCOUNTER 2017-12-29 09:54 | Day surgery (SDC) | payer OTHER ==
[2017-12-29] MEDS ORDERED: VANCOMYCIN 2,000 MG in DEXTROSE 5%-WATER - 500 ML IVPB ONE (10:00)
[2017-12-29 10:41] VITALS: BP 141/70; PULSE 84; TEMP 98.3
== END 2017-12-29 13:30 | disposition home or self-care (01) ==
LOC: JINFUSION 09:54
PROVIDERS: ATTEND Internal Medicine Infectious Disease
DX: L03.115 Cellulitis of right lower limb (principal); L02.415 Cutaneous abscess of right lower limb; B95.62 Methicillin resistant Staphylococcus aureus infection as the cause of diseases classified elsewhere; M86.9 Osteomyelitis, unspecified
CPT/HCPCS: 96365; 96366

== ENCOUNTER 2017-12-30 10:21 | Day surgery (SDC) | payer OTHER ==
[2017-12-30] MEDS ORDERED: VANCOMYCIN 2,000 MG in SODIUM CHLORIDE 500 ML IVPB ONE (11:00)
[2017-12-30 15:30] VITALS: BP 145/66; PULSE 82; TEMP 98.5
== END 2017-12-30 15:15 | disposition home or self-care (01) ==
LOC: JINFUSION 10:21
PROVIDERS: ATTEND Internal Medicine Infectious Disease
DX: Z92.21 Personal history of antineoplastic chemotherapy (principal); L03.115 Cellulitis of right lower limb; B95.62 Methicillin resistant Staphylococcus aureus infection as the cause of diseases classified elsewhere; M86.9 Osteomyelitis, unspecified; I10 Essential (primary) hypertension; M06.9 Rheumatoid arthritis, unspecified; Z85.3 Personal history of malignant neoplasm of breast
CPT/HCPCS: 96365; 96366

== ENCOUNTER 2017-12-31 10:22 | Day surgery (SDC) | payer OTHER ==
[~2017-12-31 10:22] MED LIST changes: -VANCOMYCIN 2,000 MG in DEXTROSE 5%-WATER - 500 ML IVPB ONE; +VANCOMYCIN 2,000 MG in SODIUM CHLORIDE 500 ML IVPB ONE
[2017-12-31 14:17] VITALS: BP 148/71; PULSE 84; TEMP 98.2
== END 2017-12-31 14:17 | disposition home or self-care (01) ==
LOC: JINFUSION 10:22
PROVIDERS: ATTEND Internal Medicine Infectious Disease
DX: L03.115 Cellulitis of right lower limb (principal); L02.415 Cutaneous abscess of right lower limb; B95.62 Methicillin resistant Staphylococcus aureus infection as the cause of diseases classified elsewhere; M86.9 Osteomyelitis, unspecified; I10 Essential (primary) hypertension; M06.9 Rheumatoid arthritis, unspecified; Z85.3 Personal history of malignant neoplasm of breast; Z92.21 Personal history of antineoplastic chemotherapy
CPT/HCPCS: 96365; 96366

== ENCOUNTER 2018-01-02 10:32 | Day surgery (SDC) | payer OTHER ==
[2018-01-02] MEDS ORDERED: VANCOMYCIN 2,000 MG in DEXTROSE 5%-WATER - 500 ML IVPB ONE (11:00)
[2018-01-02 15:26] VITALS: BP 155/68; PULSE 74; TEMP 98.3
== END 2018-01-02 14:30 | disposition home or self-care (01) ==
LOC: JINFUSION 10:32 → J7W 10:33 → JINFUSION 14:30
PROVIDERS: ATTEND Internal Medicine Infectious Disease
DX: L03.115 Cellulitis of right lower limb (principal); L02.415 Cutaneous abscess of right lower limb; B95.62 Methicillin resistant Staphylococcus aureus infection as the cause of diseases classified elsewhere; M86.9 Osteomyelitis, unspecified
CPT/HCPCS: 96365; 96366

== ENCOUNTER 2018-01-03 10:20 | Day surgery (SDC) | payer OTHER ==
[2018-01-03] MEDS ORDERED: VANCOMYCIN 2,000 MG in DEXTROSE 5%-WATER - 500 ML IVPB ONE (11:00)
[2018-01-03 15:16] VITALS: TEMP 98.5
[2018-01-03 15:19] VITALS: BP 132/75; PULSE 78
== END 2018-01-03 15:21 | disposition home or self-care (01) ==
LOC: JINFUSION 10:20 → J7W 10:24 → JINFUSION 15:21
PROVIDERS: ATTEND Internal Medicine Infectious Disease
DX: L03.115 Cellulitis of right lower limb (principal); L02.415 Cutaneous abscess of right lower limb; B95.62 Methicillin resistant Staphylococcus aureus infection as the cause of diseases classified elsewhere; M86.9 Osteomyelitis, unspecified
CPT/HCPCS: 96365; 96366

== ENCOUNTER 2018-01-05 10:37 | Day surgery (SDC) | payer OTHER ==
[~2018-01-05 10:37] MED LIST changes: +VANCOMYCIN 2,000 MG in DEXTROSE 5%-WATER - 500 ML IVPB ONE; -VANCOMYCIN 2,000 MG in SODIUM CHLORIDE 500 ML IVPB ONE
[2018-01-05 12:06] VITALS: TEMP 99
[2018-01-05 14:36] VITALS: BP 144/79; PULSE 60
== END 2018-01-05 14:30 | disposition home or self-care (01) ==
LOC: JINFUSION 10:37
PROVIDERS: ATTEND Internal Medicine Infectious Disease
DX: L03.115 Cellulitis of right lower limb (principal); L02.415 Cutaneous abscess of right lower limb; B95.62 Methicillin resistant Staphylococcus aureus infection as the cause of diseases classified elsewhere; M86.9 Osteomyelitis, unspecified
CPT/HCPCS: 96365; 96366

== ENCOUNTER 2018-01-07 10:35 | Day surgery (SDC) | payer OTHER ==
[~2018-01-07 10:35] MED LIST changes: +VANCOMYCIN 1,500 MG in DEXTROSE 5%-WATER - 500 ML IVPB ONE; -VANCOMYCIN 2,000 MG in DEXTROSE 5%-WATER - 500 ML IVPB ONE
[2018-01-07 12:19] VITALS: TEMP 99.8
[2018-01-07] MEDS ORDERED: VANCOMYCIN 500 MG in DEXTROSE 5%-WATER 100 ML IVPB ONE (12:30)
[2018-01-07 14:09] VITALS: BP 125/70; PULSE 78
== END 2018-01-07 14:22 | disposition home or self-care (01) ==
LOC: JINFUSION 10:35
PROVIDERS: ATTEND Internal Medicine Infectious Disease
DX: L03.115 Cellulitis of right lower limb (principal); L02.415 Cutaneous abscess of right lower limb; B95.62 Methicillin resistant Staphylococcus aureus infection as the cause of diseases classified elsewhere; M86.9 Osteomyelitis, unspecified
CPT/HCPCS: 96365; 96366

== ENCOUNTER 2018-01-09 11:10 | Day surgery (SDC) | payer OTHER ==
[2018-01-09] MEDS ORDERED: VANCOMYCIN 2,000 MG in DEXTROSE 5%-WATER - 500 ML IVPB ONE (11:30)
[2018-01-09 15:01] VITALS: BP 133/91; PULSE 68; TEMP 98.3
== END 2018-01-09 15:24 | disposition home or self-care (01) ==
LOC: JINFUSION 11:10 → J7W 11:11 → JINFUSION 15:24
PROVIDERS: ATTEND Internal Medicine Infectious Disease
DX: L03.115 Cellulitis of right lower limb (principal); L02.415 Cutaneous abscess of right lower limb; B95.62 Methicillin resistant Staphylococcus aureus infection as the cause of diseases classified elsewhere; M86.9 Osteomyelitis, unspecified
CPT/HCPCS: 96365; 96366

== ENCOUNTER 2018-01-10 10:28 | Day surgery (SDC) | payer OTHER ==
[2018-01-10] MEDS ORDERED: VANCOMYCIN 2,000 MG in DEXTROSE 5%-WATER - 500 ML IVPB SCH (11:00)
[2018-01-10 14:25] VITALS: BP 141/77; PULSE 66; TEMP 97.4
== END 2018-01-10 14:27 | disposition home or self-care (01) ==
LOC: JINFUSION 10:28 → J7W 10:28 → JINFUSION 14:27
PROVIDERS: ATTEND Internal Medicine Infectious Disease
DX: L03.115 Cellulitis of right lower limb (principal); L02.415 Cutaneous abscess of right lower limb; B95.62 Methicillin resistant Staphylococcus aureus infection as the cause of diseases classified elsewhere; M86.9 Osteomyelitis, unspecified
CPT/HCPCS: 96365; 96366

== ENCOUNTER 2018-01-11 10:49 | Day surgery (SDC) | payer OTHER ==
[2018-01-11] MEDS ORDERED: VANCOMYCIN 2,000 MG in DEXTROSE 5%-WATER - 500 ML IVPB ONE (11:00)
[2018-01-11 11:16] LABS: HEMATOCRIT 31.1 % (32.4-45.2); HEMOGLOBIN 10.8 GM/dL (10.7-15.3); MCH 33.3 pg (25.7-33.7); MCHC 34.6 g/dl (32.0-36.0); MEAN CELL VOLUME 96.2 fl (80-96); PLATELET COUNT 197 K/MM3 (134-434); RBC 3.23 M/mm3 (3.60-5.2); RDW 14.3 % (11.6-15.6); WHITE BLOOD COUNT 2.9 K/mm3 (4.0-10.0)
[2018-01-11 11:39] LABS: ANION GAP 11 (8-16); BLOOD UREA NITROGEN 6 mg/dL (7-18); CALCIUM 8.3 mg/dL (8.5-10.1); CHLORIDE 95 mmol/L (98-107); CO2 25 mmol/L (21-32); CREATININE 0.8 mg/dL (0.55-1.02); GLUCOSE,RANDOM 108 mg/dL (74-106); POTASSIUM 3.6 mmol/L (3.5-5.1); SODIUM 131 mmol/L (136-145)
[2018-01-11 12:21] VITALS: TEMP 98.7
[2018-01-11 13:03] LABS: ERYTHROCYTE SEDIMENTATION RATE 26 mm/hr (0-30)
[2018-01-11 14:47] VITALS: BP 145/91; PULSE 61
== END 2018-01-11 14:48 | disposition home or self-care (01) ==
LOC: JINFUSION 10:49
PROVIDERS: ATTEND Internal Medicine Infectious Disease
DX: L03.115 Cellulitis of right lower limb (principal); L02.415 Cutaneous abscess of right lower limb; B95.62 Methicillin resistant Staphylococcus aureus infection as the cause of diseases classified elsewhere; M86.9 Osteomyelitis, unspecified
CPT/HCPCS: 36415; 80048; 85027; 85651; 86140; 96365; 96366

== ENCOUNTER 2018-01-12 11:00 | Day surgery (SDC) | payer OTHER ==
[~2018-01-12 11:00] MED LIST changes: -VANCOMYCIN 1,500 MG in DEXTROSE 5%-WATER - 500 ML IVPB ONE; +VANCOMYCIN 2,000 MG in DEXTROSE 5%-WATER - 500 ML IVPB ONE
[2018-01-12 11:41] VITALS: TEMP 99.1
[2018-01-12 14:40] VITALS: BP 129/72; PULSE 61
== END 2018-01-12 14:41 | disposition home or self-care (01) ==
LOC: JINFUSION 11:00
PROVIDERS: ATTEND Internal Medicine Infectious Disease
DX: L03.115 Cellulitis of right lower limb (principal); L02.415 Cutaneous abscess of right lower limb; B95.62 Methicillin resistant Staphylococcus aureus infection as the cause of diseases classified elsewhere; M86.9 Osteomyelitis, unspecified
CPT/HCPCS: 96365; 96366

== ENCOUNTER 2018-01-13 10:58 | Day surgery (SDC) | payer OTHER ==
[2018-01-13 12:13] VITALS: TEMP 99
[2018-01-13 15:27] VITALS: BP 138/72; PULSE 74
== END 2018-01-13 14:30 | disposition home or self-care (01) ==
LOC: JASU-ENDO 10:58
PROVIDERS: ATTEND Internal Medicine Infectious Disease
DX: L03.115 Cellulitis of right lower limb (principal); B95.62 Methicillin resistant Staphylococcus aureus infection as the cause of diseases classified elsewhere; M86.9 Osteomyelitis, unspecified
CPT/HCPCS: 96365; 96366

== ENCOUNTER 2018-01-14 10:58 | Day surgery (SDC) | payer OTHER ==
[2018-01-14 11:17] VITALS: TEMP 99.2
[2018-01-14 14:31] VITALS: BP 131/71; PULSE 71
== END 2018-01-14 14:31 | disposition home or self-care (01) ==
LOC: JINFUSION 10:58
PROVIDERS: ATTEND Internal Medicine Infectious Disease
DX: L03.115 Cellulitis of right lower limb (principal); B95.62 Methicillin resistant Staphylococcus aureus infection as the cause of diseases classified elsewhere; M86.9 Osteomyelitis, unspecified
CPT/HCPCS: 96365; 96366